=== PATIENT | male | born 1960 | race Two or more races ===

== ENCOUNTER 2021-05-08 13:17 | Inpatient (IN) | payer BC, MEDICAID ==
[2021-05-08 16:23] LABS: CARBON DIOXIDE,CO2 27.7 mmol/L (21.0-32.0); POTASSIUM,K 4.3 mmol/L (3.5-5.1)
[2021-05-08] MEDS ORDERED: Iopamidol 755 MG/ML 500 ML Multipack Bottle IVPUSH STA (17:02)
--- NOTE | 2021-05-08 19:02 | CT ---
Indication: periumbilical pain more to the right side since yesterday, some nausea Technique: Postcontrast CT abdomen and pelvis. 100 cc Isovue 370 intravenous contrast. Please note that all CT scans at this facility use dose modulation, iterative reconstruction, and/or weight-based dosing when appropriate to reduce radiation dose to as low as reasonably achievable. Comparison: None Findings: Mild scarring in both lung bases. No pleural effusion. No intrahepatic mass. The gallbladder is distended. Multiple hyperdense stones located within the gallbladder fundus measuring up to 1 centimeter. There is also a stone near the gallbladder neck measuring 2.5 cm. The gallbladder wall may be slightly thickened. Mild prominence of the intrahepatic biliary tree. Adrenal glands normal. Kidneys unremarkable. No hydronephrosis. Spleen normal. No pancreatic mass. No suspicious adenopathy. Status post appendectomy. Prostate not enlarged. Bladder normal. Left inguinal hernia containing fat measuring 5.5 cm. No bowel obstruction Impression: Multiple calcified gallstones in the gallbladder measuring up to 2.5 cm with the suggestion of mild gallbladder wall thickening and mild intrahepatic biliary duct prominence suggesting cholecystitis. Ultrasound recommended. Large left inguinal hernia contains fat. No inflammation or bowel involvement. Please note that all CT scans at this facility use dose modulation, iterative reconstruction, and/or weight-based dosing when appropriate to reduce radiation dose to as low as reasonably achievable. Dictated by Sacha Gary MD @ 05/08/2021 7:02:23 PM (Electronically Signed)
[2021-05-08] MEDS ORDERED: Morphine 4 MG/ML Syringe IVPUSH ONE (20:08)
[2021-05-08] MEDS ORDERED: Sodium Chloride 0.9% 1,000 ML IV ONE (20:08)
[2021-05-08] MEDS ORDERED: Ondansetron 4 MG/2 ML SDV IVPUSH ONE (20:08)
[2021-05-08] MEDS ORDERED: Sodium Chloride 0.9% 2.5 ML Syringe FLUSH PRN (20:11)
[2021-05-08] MEDS ORDERED: Sodium Chloride 0.9% 10 ML SDV IV PRN (20:11)
[2021-05-08] MEDS ORDERED: Ondansetron 4 MG/2 ML SDV IVPUSH PRN (20:11)
[2021-05-08] MEDS ORDERED: Sodium Chloride 0.9% 10 ML Syringe FLUSH PRN (20:11)
[2021-05-08] MEDS ORDERED: diphenhydrAMINE 50 MG/ML SDV IVPUSH PRN (20:11)
[2021-05-08] MEDS ORDERED: Acetaminophen/HYDROcodone 325-5 MG Tab PO PRN (20:11)
[2021-05-08] MEDS ORDERED: HYDROmorphone 2 MG/ML Syringe IVPUSH PRN (20:11)
--- NOTE | 2021-05-08 20:15 | EDM.PDOC ---
ED HPI GENERAL MEDICAL PROBLEM - General Chief Complaint: Abdominal Pain Stated Complaint: LOWER STOMACH PAIN Time Seen by Provider: 05/08/21 15:18 Source of Information: Reports: Patient History Limitations: Reports: No Limitations - History of Present Illness INITIAL COMMENTS - FREE TEXT/NARRATIVE: HISTORY AND PHYSICAL: History of present illness: Patient is a 60-year-old male who presents emergency room today with concern of right-sided abdominal pain that has been ongoing since yesterday. Patient states that it first started after he ate chicken nuggets and states that he "thought he had food poisoning ". Patient states that since then, he has not been able to eat or drink anything and feels nauseous and like he is going to vomit. Patient states that he was unable to sleep last night and feels as if he is "full of air "but is unable to pass luis eduardo. Patient denies any health history or any abdominal surgeries. Patient states he has not taken anything for his s ymptoms. Patient denies fever, chills, chest pain, shortness of breath, or cough. Denies headache, neck stiff ness, change in vision, syncope, or near syncope. Denies nausea, vomiting, diarrhea, constipation, or dysuria. Has not noted any blood in urine or stool. Review of systems: As per history of present illness and below otherwise all systems reviewed and negative. Past medical history: As per history of present illness and as reviewed below otherwise noncontributory. Surgical history: As per history of present illness and as reviewed below otherwise noncontributory. Social history: See social history for further information Family history: As per history of present illness and as reviewed below otherwise noncontributory. Physical exam: General: Patient is alert, oriented, and in no acute distress. Patient sitting comfortably on exam table. Vitals stable and reviewed by me. HEENT: Atraumatic, normocephalic, pupils equal and reactive bilaterally, negative for conjunctival pallor or scleral icterus, mucous membranes moist, TMs normal bilaterally, throat clear, neck supple, nontender, trachea midline. No drooling or trismus noted. No meningeal signs. No hot potato voice noted. Lungs: Clear to auscultation, breath sounds equal bilaterally, chest nontender. Heart: S1S2, regular rate and rhythm without overt murmur Abdomen: Soft, nondistended, moderate right sided abd tenderness. Negative for masses or hepatosplenomegaly. Negative for costovertebral tenderness. Pelvis: Stable nontender. Genitourinary: Deferred. Rectal: Deferred. Skin: Intact, warm, dry. No lesions or rashes noted. Extremities: Atraumatic, negative for cords or calf pain. Neurovascular unremarkable. Neuro: Awake, alert, oriented. Cranial nerves II through XII unremarkable. Cerebellum unremarkable. Motor and sensory unremarkable throughout. Exam nonfocal. Notes: Patient is a 60-year-old male who resents emergency room today with concern of right-sided abdominal pain that is been ongoing since yesterday with decreased appetite and nausea. Upon arrival to the ED, patient is vitally stable and well-appearing on exam but does have significant right-sided abdominal pain. Will obtain basic lab work and abdominal pelvic CT scan. CBC shows mildly decreased red blood cell count 4.26, otherwise mild derangements of CBC unremarkable. CMP shows mild hyponatremia at 134 and hypochloremia at 94, BUN isolated at 20 with creatinine at 1.4, glucose 139, total bilirubin isolated elevation at 1.3, otherwise mild derangements of CMP unremarkable. Lipase within normal limits. Abdominal pelvic CT scan shows multiple calcified gallstones in the gallbladder measuring up to 2.5 cm with a suggestion of mild gallbladder wall thickening and mild intrahepatic biliary duct prominence suggesting cholecystitis. Large left inguinal hernia contains fat. No inflammatory or bowel movement involvement. Call and speak to the general surgeon on-call, Dr. Light, thoroughly discussed patient's case. She has come in to personally see and evaluate the patient. See her official consult note for further treatment and disposition. Will admit to observation to Dr. Light, general surgery. On reevaluation of patient, he remains vitally stable and has improvement of his symptoms with therapeutics given today in the emergency room. Patient has been transferred to the floor under Dr. Light's care in stable condition. Diagnostics: CBC, CMP, lipase, abdominal pelvic CT scan with contrast Therapeutics: Normal saline, Zofran, morphine Impression: Acute cholecystitis Plan: Admit to observation to Dr. Light, General Surgery Definitive disposition and diagnosis as appropriate pending reevaluation and review of above. Right Lower Abdominal Pain Score (Numeric/FACES): 9 - Related Data Allergies Allergy/AdvReac Type Severity Reaction Status Date / Time No Known Allergies Allergy Verified 01/28/16 13:59 Home Meds: Home Meds Bictegrav/Emtricit/Tenofov Ala [Biktarvy 50-200-25 mg Tablet] 1 tab PO DAILY 05/08/21 [History] Dapsone 100 mg pe PO DAILY 05/08/21 [History] hydroCHLOROthiazide [Hydrochlorothiazide] 1 tab PO DAILY 05/08/21 [History] lisinopriL [Lisinopril] 10 mg PO DAILY 05/08/21 [History] Past Medical History - Past Health History Medical/Surgical History: Denies Medical/Surgical History HEENT History: Reports: None Cardiovascular History: Reports: None Respiratory History: Reports: Asthma Gastrointestinal History: Reports: None Genitourinary History: Reports: None Musculoskeletal History: Reports: None Other Neuro History: Meningitis Psychiatric History: Reports: None Endocrine/Metabolic History: Reports: None Hematologic History: Reports: None Immunologic History: Reports: None Oncologic (Cancer) History: Reports: None Dermatologic History: Reports: None - Infectious Disease History Infectious Disease History: Reports: Meningitis Social & Family History - Family History Family Medical History: No Pertinent Family History - Tobacco Use Tobacco Use Status *Q: Never Tobacco User Second Hand Smoke Exposure: No - Caffeine Use Caffeine Use: Reports: Coffee - Recreational Drug Use Recreational Drug Use: Yes Recreational Drug Type: Reports: Marijuana/Hashish Recreational Drug Use Frequency: Socially ED ROS GENERAL - Review of Systems Review Of Systems: Comprehensive ROS is negative, except as noted in HPI. ED EXAM, GENERAL - Physical Exam Exam: See Below (see dictation) Course - Vital Signs Last Recorded V/S: Last Vital Signs Temp 98.7 F 05/08/21 14:56 Pulse 66 05/08/21 21:12 Resp 16 05/08/21 21:12 BP 131/80 05/08/21 21:12 Pulse Ox 94 L 05/08/21 21:12 - Orders/Labs/Meds Orders: Active Orders 24 hr Category Date Time Status Notify Provider Consults [RC] ASDIRECTED Care 05/08/21 20:09 Active Consult to Physician [CONS] Stat Cons 05/08/21 20:09 Active Medication Orders Hydrocodone Bitart/Acetaminophen (Acetaminophen/Hydrocodone 325-5 Mg Tab) 2 tab PO Q4H PRN PRN Reason: Pain (moderate 4-6) Diphenhydramine HCl (Diphenhydramine 50 Mg/Ml Sdv) 25 mg IVPUSH Q4H PRN PRN Reason: Itching Hydromorphone HCl (Hydromorphone 1 Mg/Ml Syringe) 0.5 mg IVPUSH Q1H PRN PRN Reason: Pain (severe 7-10) Lactated Ringer's (Ringers, Lactated) 1,000 mls @ 125 mls/hr IV ASDIRECTED JAIDA Piperacillin Sod/Tazobactam (Sod 3.375 gm/ Sodium Chloride) 50 mls @ 100 mls/hr IV Q6H [facility] Last Admin: 05/08/21 21:16 Dose: 100 mls/hr Documented by: JORGE LUSI Ondansetron HCl (Ondansetron 4 Mg/2 Ml Sdv) 4 mg IVPUSH Q6H PRN PRN Reason: Nausea/Vomiting Sodium Chloride (Sodium Chloride 0.9% 10 Ml Syringe) 10 ml FLUSH ASDIRECTED PRN PRN Reason: Keep Vein Open Sodium Chloride (Sodium Chloride 0.9% 2.5 Ml Syringe) 2.5 ml FLUSH ASDIRECTED PRN PRN Reason: Keep Vein Open Sodium Chloride (Sodium Chloride 0.9% 10 Ml Sdv) 10 ml IV ASDIRECTED PRN PRN Reason: IV Use Labs: Laboratory Tests 05/08/21 05/08/21 Range/Units 15:49 15:49 WBC 10.97 (4.0-11.0) K/uL RBC 4.26 L (4.50-5.90) M/uL Hgb 13.5 (13.0-17.0) g/dL Hct 38.8 (38.0-50.0) % MCV 91.1 (80.0-98.0) fL MCH 31.7 (27.0-32.0) pg MCHC 34.8 (31.0-37.0) g/dL RDW Std Deviation 44.3 (28.0-62.0) fl RDW Coeff of Moi 13 (11.0-15.0) % Plt Count 246 (150-400) K/uL MPV 10.40 (7.40-12.00) fL Neut % (Auto) 82.3 H (48.0-80.0) % Lymph % (Auto) 12.7 L (16.0-40.0) % [place] % (Auto) 4.9 (0.0-15.0) % Eos % (Auto) 0.0 (0.0-7.0) % Baso % (Auto) 0.1 (0.0-1.5) % Neut # (Auto) 9.0 H (1.4-5.7) K/uL Lymph # (Auto) 1.4 (0.6-2.4) K/uL [place] # (Auto) 0.5 (0.0-0.8) K/uL Eos # (Auto) 0.0 (0.0-0.7) K/uL Baso # (Auto) 0.0 (0.0-0.1) K/uL Nucleated RBC % 0.0 /100WBC Nucleated RBCs # 0 K/uL Sodium 134 L (136-148) mmol/L Potassium 4.3 (3.5-5.1) mmol/L Chloride 97 L (98-107) mmol/L Carbon Dioxide 27.7 (21.0-32.0) mmol/L BUN 20 H (7.0-18.0) mg/dL Creatinine 1.4 H (0.8-1.3) mg/dL Est Cr Clr Drug Dosing 53.61 mL/min Estimated GFR (MDRD) 51.5 ml/min Glucose 139 H (74-106) mg/dL Calcium 9.5 (8.5-10.1) mg/dL Total Bilirubin 1.3 H (0.2-1.0) mg/dL AST 33 (15-37) IU/L ALT 32 (14-63) IU/L Alkaline Phosphatase 96 (46-116) U/L Total Protein 8.6 H (6.4-8.2) g/dL Albumin 4.0 (3.4-5.0) g/dL Globulin 4.6 H (2.6-4.0) g/dL Albumin/Globulin Ratio 0.9 (0.9-1.6) Lipase 151 (73-393) U/L Meds: Medications Generic Name Dose Route Start Last Admin Trade Name Freq PRN Reason Stop Dose Admin Hydrocodone Bitart/Acetaminophen 2 tab 05/08/21 20:11 Acetaminophen/Hydrocodone 325-5 Mg Tab PO Q4H PRN Pain (moderate 4-6) Diphenhydramine HCl 25 mg 05/08/21 20:11 Diphenhydramine 50 Mg/Ml Sdv IVPUSH Q4H PRN Itching Hydromorphone HCl 0.5 mg 05/08/21 20:24 Hydromorphone 1 Mg/Ml Syringe IVPUSH Q1H PRN Pain (severe 7-10) Lactated Ringer's 1,000 mls @ 125 mls/hr 05/08/21 20:15 Ringers, Lactated IV ASDIRECTED JAIDA Piperacillin Sod/Tazobactam 50 mls @ 100 mls/hr 05/08/21 20:00 05/08/21 21:16 Sod 3.375 gm/ Sodium Chloride IV 100 mls/hr Q6H JAIDA Administration Ondansetron HCl 4 mg 05/08/21 20:11 Ondansetron 4 Mg/2 Ml Sdv IVPUSH Q6H PRN Nausea/Vomiting Sodium Chloride 10 ml 05/08/21 20:11 Sodium Chloride 0.9% 10 Ml Syringe FLUSH ASDIRECTED PRN Keep Vein Open Sodium Chloride 2.5 ml 05/08/21 20:11 Sodium Chloride 0.9% 2.5 Ml Syringe FLUSH ASDIRECTED PRN Keep Vein Open Sodium Chloride 10 ml 05/08/21 20:11 Sodium Chloride 0.9% 10 Ml Sdv IV ASDIRECTED PRN IV Use Discontinued Medications Generic Name Dose Route Start Last Admin Trade Name Freq PRN Reason Stop Dose Admin Hydromorphone HCl 0.5 mg 05/08/21 20:11 Hydromorphone 2 Mg/Ml Syringe IVPUSH Q1H PRN Pain (severe 7-10) Sodium Chloride 1,000 mls @ 999 mls/hr 05/08/21 20:08 05/08/21 21:06 Normal Saline IV 05/08/21 21:08 999 mls/hr STAT ONE Administration Iopamidol 85 ml 05/08/21 17:02 05/08/21 17:13 Iopamidol 755 Mg/Ml 500 Ml Multipack Bottle IVPUSH 05/08/21 17:03 85 ml ONETIME STA Administration Morphine Sulfate 4 mg 05/08/21 20:08 05/08/21 21:12 Morphine 4 Mg/Ml Syringe IVPUSH 05/08/21 20:09 4 mg ONETIME ONE Administration Ondansetron HCl 4 mg 05/08/21 20:08 05/08/21 21:09 Ondansetron 4 Mg/2 Ml Sdv IVPUSH 05/08/21 20:09 4 mg ONETIME ONE Administration Departure - Departure Time of Disposition: 21:42 Disposition: Refer to Observation Clinical Impression: Acute cholecystitis - Discharge Information Sepsis Event Note (ED) - Focused Exam Vital Signs: Vital Signs Temp Pulse Resp BP Pulse Ox 05/08/21 14:56 98.7 F 60 18 133/82 97 - My Orders Last 24 Hours: My Active Orders 05/08/21 20:09 Notify Provider Consults [RC] ASDIRECTED Consult to Physician [CONS] Stat - Assessment/Plan Last 24 Hours: My Active Orders 05/08/21 20:09 Notify Provider Consults [RC] ASDIRECTED Consult to Physician [CONS] Stat
--- NOTE | 2021-05-08 20:15 | PCM.HP.2 ---
H&P History of Present Illness - General Date of Service: 05/08/21 Admit Problem/Dx: Admission Diagnosis/Problem Admission Diagnosis/Problem Acute cholecystitis Source of Information: Patient History Limitations: Reports: No Limitations - History of Present Illness Initial Comments - Free Text/Narative: Patient is a 60 year old HIV positive male who presents with RUQ pain. He states that it started yesterday after a meal. He has been having similar, less severe pain after greasy meals for some time. He states that he felt bloated, nauseated and vomited with this. He denies fevers or chills. The pain did not improve with position changes, OTC medications, burping or passing gas. He presented to the ER tonight. His vital signs were stable. He had a WBC of 10K with a neurtrophil predominance. CT scan of the abdomen pelvis showed a distended gallbladder with a possibly thickened wall with a large gallstone in the neck of the gallbladder (2.5 cm). His intrahepatic bile ducts were also mildly prominent. His bilirubin was 1.3 but LFTs were normal. His BUN and Cr were mildly elevated. Right Lower Abdominal Pain Score (Numeric/FACES): 9 - Related Data Allergies/Adverse Reactions: Allergies Allergy/AdvReac Type Severity Reaction Status Date / Time No Known Allergies Allergy Verified 01/28/16 13:59 Home Medications: Home Meds Bictegrav/Emtricit/Tenofov Ala [Biktarvy 50-200-25 mg Tablet] 1 tab PO DAILY 05/08/21 [History] Dapsone 100 mg pe PO DAILY 05/08/21 [History] hydroCHLOROthiazide [Hydrochlorothiazide] 1 tab PO DAILY 05/08/21 [History] lisinopriL [Lisinopril] 10 mg PO DAILY 05/08/21 [History] Past Medical History - Past Health History Medical/Surgical History: Denies Medical/Surgical History HEENT History: Reports: None Cardiovascular History: Reports: None Respiratory History: Reports: Asthma Gastrointestinal History: Reports: None Genitourinary History: Reports: None Musculoskeletal History: Reports: None Other Neuro History: Meningitis Psychiatric History: Reports: None Endocrine/Metabolic History: Reports: None Hematologic History: Reports: None Immunologic History: Reports: HIV Oncologic (Cancer) History: Reports: None Dermatologic History: Reports: None - Infectious Disease History Infectious Disease History: Reports: Meningitis Social & Family History - Family History Family Medical History: No Pertinent Family History - Tobacco Use Tobacco Use Status *Q: Never Tobacco User Second Hand Smoke Exposure: No - Caffeine Use Caffeine Use: Reports: Coffee - Recreational Drug Use Recreational Drug Use: Yes Recreational Drug Type: Reports: Marijuana/Hashish Recreational Drug Use Frequency: Socially H&P Review of Systems - Review of Systems: Review Of Systems: Comprehensive ROS is negative, except as noted in HPI. General: Reports: No Symptoms HEENT: Reports: No Symptoms Pulmonary: Reports: No Symptoms Cardiovascular: Reports: No Symptoms Gastrointestinal: Reports: Abdominal Pain, Decreased Appetite, Distension, Flatus, Nausea, Vomiting Genitourinary: Reports: No Symptoms Musculoskeletal: Reports: No Symptoms Exam - Exam Exam: See Below - Vital Signs Vital Signs: Last Vital Signs Temp 37.1 C 05/08/21 14:56 Pulse 60 05/08/21 14:56 Resp 18 05/08/21 14:56 BP 133/82 05/08/21 14:56 Pulse Ox 97 05/08/21 14:56 Weight: 77.111 kg - Exam General: Alert, Oriented HEENT: Conjunctiva Clear, Mucosa Moist & Sombrillo, Posterior Pharynx Clear Neck: Supple, Trachea Midline Lungs: Clear to Auscultation, Normal Respiratory Effort Cardiovascular: Regular Rate, Regular Rhythm GI/Abdominal Exam: Soft, Non-Tender, No Mass, Distended (mild). No: Guarding, Rigid, Rebound - Patient Data Lab Results Last 24 hrs: Laboratory Results - last 24 hr 05/08/21 05/08/21 Range/Units 15:49 15:49 WBC 10.97 (4.0-11.0) K/uL RBC 4.26 L (4.50-5.90) M/uL Hgb 13.5 (13.0-17.0) g/dL Hct 38.8 (38.0-50.0) % MCV 91.1 (80.0-98.0) fL MCH 31.7 (27.0-32.0) pg MCHC 34.8 (31.0-37.0) g/dL RDW Std Deviation 44.3 (28.0-62.0) fl RDW Coeff of Moi 13 (11.0-15.0) % Plt Count 246 (150-400) K/uL MPV 10.40 (7.40-12.00) fL Neut % (Auto) 82.3 H (48.0-80.0) % Lymph % (Auto) 12.7 L (16.0-40.0) % [place] % (Auto) 4.9 (0.0-15.0) % Eos % (Auto) 0.0 (0.0-7.0) % Baso % (Auto) 0.1 (0.0-1.5) % Neut # (Auto) 9.0 H (1.4-5.7) K/uL Lymph # (Auto) 1.4 (0.6-2.4) K/uL [place] # (Auto) 0.5 (0.0-0.8) K/uL Eos # (Auto) 0.0 (0.0-0.7) K/uL Baso # (Auto) 0.0 (0.0-0.1) K/uL Nucleated RBC % 0.0 /100WBC Nucleated RBCs # 0 K/uL Sodium 134 L (136-148) mmol/L Potassium 4.3 (3.5-5.1) mmol/L Chloride 97 L (98-107) mmol/L Carbon Dioxide 27.7 (21.0-32.0) mmol/L BUN 20 H (7.0-18.0) mg/dL Creatinine 1.4 H (0.8-1.3) mg/dL Est Cr Clr Drug Dosing 53.61 mL/min Estimated GFR (MDRD) 51.5 ml/min Glucose 139 H (74-106) mg/dL Calcium 9.5 (8.5-10.1) mg/dL Total Bilirubin 1.3 H (0.2-1.0) mg/dL AST 33 (15-37) IU/L ALT 32 (14-63) IU/L Alkaline Phosphatase 96 (46-116) U/L Total Protein 8.6 H (6.4-8.2) g/dL Albumin 4.0 (3.4-5.0) g/dL Globulin 4.6 H (2.6-4.0) g/dL Albumin/Globulin Ratio 0.9 (0.9-1.6) Lipase 151 (73-393) U/L Result Diagrams: 05/08/21 15:49 05/08/21 15:49 Sepsis Event Note - Focused Exam Vital Signs: Vital Signs Temp Pulse Resp BP Pulse Ox 05/08/21 14:56 37.1 C 60 18 133/82 97 - Problem List (1) HIV (human immunodeficiency virus infection) SNOMED Code(s): 40392660 ICD Code: B20 - HUMAN IMMUNODEFICIENCY VIRUS [HIV] DISEASE Status: Acute Current Visit: Yes (2) Acute cholecystitis SNOMED Code(s): 24780308 ICD Code: K81.0 - ACUTE CHOLECYSTITIS Status: Acute Current Visit: Yes Problem List Initiated/Reviewed/Updated: Yes Orders Last 24hrs: Active Orders 24 hr Category Date Time Status Patient Status [ADT] Routine ADT 05/08/21 20:11 Ordered Intake and Output [RC] QSHIFT Care 05/08/21 20:12 Ordered Notify Provider Consults [RC] ASDIRECTED Care 05/08/21 20:09 Active Notify Provider Vital Signs [RC] PRN Care 05/08/21 20:12 Ordered Oxygen Therapy [RC] PRN Care 05/08/21 20:11 Ordered RT Incentive Spirometry [RC] Q1HWA Care 05/08/21 20:11 Ordered Up ad Michela [RC] ASDIRECTED Care 05/08/21 20:11 Ordered Vital Signs [RC] PER UNIT ROUTINE Care 05/08/21 20:11 Ordered Consult to Physician [CONS] Stat Cons 05/08/21 20:09 Active Nothing Per Oral Diet [DIET] Diet 05/08/21 Dinner Ordered Abdomen Ltd [US] Stat Exams 05/08/21 19:08 Ordered CBC W/O DIFF,HEMOGRAM [HEME] AM Lab 05/09/21 05:11 Ordered COMPREHENSIVE METABOLIC PN,CMP [CHEM] AM Lab 05/09/21 05:11 Ordered CORONAVIRUS COVID-19 MARGIE [MOLEC] Stat Lab 05/08/21 20:08 Ordered Acetaminophen/HYDROcodone [[place] 325-5 MG] Med 05/08/21 20:11 Ordered 2 tab PO Q4H PRN HYDROmorphone [Dilaudid] Med 05/08/21 20:11 Ordered 0.5 mg IVPUSH Q1H PRN Lactated Ringers @ 125 MLS/HR(1000ml) Med 05/08/21 20:15 Ordered Lactated Ringers [Ringers, Lactated] 1,000 ml IV ASDIRECTED Ondansetron [Zofran] Med 05/08/21 20:11 Ordered 4 mg IVPUSH Q6H PRN Piperacillin/Tazobactam [Piperacil-Tazobact] 3.375 gm Med 05/08/21 20:15 Ordered Sodium Chloride 0.9% [Normal Saline] 50 ml IV Q6H Sodium Chloride 0.9% [Normal Saline] Med 05/08/21 20:11 Ordered 10 ml IV ASDIRECTED PRN Sodium Chloride 0.9% [Normal Saline] 1,000 ml Med 05/08/21 20:08 Active IV STAT Sodium Chloride 0.9% [Saline Flush] Med 05/08/21 20:11 Ordered 10 ml FLUSH ASDIRECTED PRN Sodium Chloride 0.9% [Saline Flush] Med 05/08/21 20:11 Ordered 2.5 ml FLUSH ASDIRECTED PRN diphenhydrAMINE [Benadryl] Med 05/08/21 20:11 Ordered 25 mg IVPUSH Q4H PRN Peripheral IV Insertion Adult [OM.PC] Urgent Oth 05/08/21 20:11 Ordered Resuscitation Status Routine Resus Stat 05/08/21 20:11 Ordered Medication Orders Sodium Chloride (Normal Saline) 1,000 mls @ 999 mls/hr IV STAT ONE Stop: 05/08/21 21:08 Assessment/Plan Comment:: The patient and I discussed the pathophysiology of biliary disease, specifically involving cholelithiasis. The patient is slightly dehydrated so I will admit him overnight for fluid resucitation. He appears much more comfortable. Will have IV Dilaudid and [place] prn for pain. Will start on IV zosyn 3.375mg q 6hr. In the morning will repeat CBC and CMP. Will get an US to better characterize the gallbladder. I will consult medicine in the am for management of HIV. We did discuss possible surgery tomorrow. We discussed laparoscopic possible open cholecystectomy. We discussed the risks of this as well. Will visit about this more in the am.
[2021-05-08] MEDS ORDERED: HYDROmorphone 1 MG/ML Syringe IVPUSH PRN (20:24)
--- NOTE | 2021-05-08 21:15 | US ---
INDICATION: Cholecystitis COMPARISON: CT same day TECHNIQUE: Real time castrejon scale imaging and color Doppler analysis was performed of the right upper quadrant. FINDINGS: The patient`s liver is of normal size and has uniform echogenicity. There is a normal appearance of the hepatic IVC and proximal abdominal aorta. There is no evidence of ascites. The gallbladder is distended and there are multiple echogenic stones. One of the stones appears lodged within the gallbladder neck. The gallbladder wall measures 3.3 mm in thickness. The visualized common bile duct is of normal size and measures 7.5 mm in diameter at the level of the al hepatis. The pancreas is obscured by bowel. There is no evidence of a stone or hydronephrosis within the right kidney. The right kidney measures 11.8 cm in length. IMPRESSION: Distended gallbladder with multiple gallstones measuring up to 2.4 cm. A 1 centimeter stone appears lodged within the gallbladder neck. There is mild intrahepatic and extrahepatic biliary duct dilation with positive sonographic Carrasco sign and mild gallbladder wall thickening. Overall, findings are consistent with acute cholecystitis. Dictated by Sacha Gary MD @ 05/08/2021 9:12:47 PM (Electronically Signed)
[2021-05-08] MEDS: Piperacillin/Tazobactam 3.375 GM in Sodium Chloride 0.9% 50 ML IV SCH (21:16)
[2021-05-08] MEDS: Lactated Ringers 1,000 ML IV SCH (23:22)
[2021-05-09] MEDS: Piperacillin/Tazobactam 3.375 GM in Sodium Chloride 0.9% 50 ML IV SCH ×4 (03:02→20:55)
[2021-05-09] MEDS: Lactated Ringers 1,000 ML IV SCH ×2 (06:30→23:54)
[2021-05-09 06:56] LABS: POTASSIUM,K 4.1 mmol/L (3.5-5.1)
[2021-05-09] MEDS ORDERED: Lactated Ringers 500 ML IV SCH (07:15)
--- NOTE | 2021-05-09 09:14 | MR ---
INDICATION: Cholecystitis. Rule out choledocholithiasis. TECHNIQUE: An MRCP, including 2D, 3D and maximum intensity projection imaging, was performed. COMPARISON: Abdomen ultrasound and abdomen/pelvis CT performed yesterday. FINDINGS: The common bile duct is smoothly marginated and measures up to 5 mm in diameter. No filling defect is evident. The intrahepatic ducts are normal in caliber and appear to branch and taper in a grossly normal fashion. A 2 cm stone is lodged in the gallbladder neck, as demonstrated on yesterday`s ultrasound. Mild gallbladder wall thickening is demonstrated along with pericholecystic edema, consistent with acute cholecystitis. Pancreas divisum is noted. The pancreatic duct is normal in caliber. The liver is normal in size, shape and signal. The spleen, pancreas, adrenal glands and kidneys are within normal limits. No bowel abnormality, lymphadenopathy or free fluid is demonstrated. IMPRESSION: 1. Acute cholecystitis. 2. Negative for choledocholithiasis. 3. Pancreas divisum. Dictated by Nik Garcias MD @ 05/09/2021 9:12:29 AM (Electronically Signed)
--- NOTE | 2021-05-09 11:38 | PCM.CONS ---
H&P History of Present Illness - General Date of Service: 05/09/21 Admit Problem/Dx: Admission Diagnosis/Problem Admission Diagnosis/Problem Acute cholecystitis Source of Information: Patient History Limitations: Reports: No Limitations - History of Present Illness Initial Comments - Free Text/Narative: This 60-year-old male with past medical history of HIV currently on ant iretroviral treatment and hypertension presented to the ER with abdominal pain. He was found to have cholelithiasis with cholecystitis. Dr. Light consulted hospitalist team for medical management due to HIV medications. Patient is alert and oriented doing well this morning. Recently returned from MRI. Patient reports abdominal pain is improved but slightly still there. Denies any chest pain or shortness of breath. Reports that he has been very compliant with his Biktarvy and has been followed by his infectious disease specialist in [place]. He reports he recently had lab work including CD4 and viral load counts he reports that they were good but is on sure of actual levels. He feels his daughter would likely remember these any have documentation of this. He denies any fevers or chills. No recent viral or bacterial infections he is aware of. We will attempt to get most recent lab work reports from [facility] to be placed in the chart. Right Lower Abdominal Pain Score (Numeric/FACES): 10 - Related Data Allergies/Adverse Reactions: Allergies Allergy/AdvReac Type Severity Reaction Status Date / Time No Known Allergies Allergy Verified 05/08/21 22:35 Home Medications: Home Meds Bictegrav/Emtricit/Tenofov Ala [Biktarvy 50-200-25 mg Tablet] 1 tab PO DAILY 05/08/21 [History] Dapsone 100 mg pe PO DAILY 05/08/21 [History] hydroCHLOROthiazide [Hydrochlorothiazide] 1 tab PO DAILY 05/08/21 [History] lisinopriL [Lisinopril] 10 mg PO DAILY 05/08/21 [History] Past Medical History - Past Health History Medical/Surgical History: Denies Medical/Surgical History HEENT History: Reports: None Cardiovascular History: Reports: Hypertension Respiratory History: Reports: Asthma Gastrointestinal History: Reports: None Genitourinary History: Reports: None Musculoskeletal History: Reports: None Other Neuro History: Meningitis Psychiatric History: Reports: None Endocrine/Metabolic History: Reports: None Hematologic History: Reports: None Immunologic History: Reports: HIV Oncologic (Cancer) History: Reports: None Dermatologic History: Reports: None - Infectious Disease History Infectious Disease History: Reports: Chicken Pox, HIV-Human Immunodeficiency Virus, Meningitis, Mumps, Shingles, TB - Past Surgical History GI Surgical History: Reports: Appendectomy Male Surgical History: Reports: None Social & Family History - Family History Family Medical History: No Pertinent Family History - Tobacco Use Tobacco Use Status *Q: Former Tobacco User Used Tobacco, but Quit: No Second Hand Smoke Exposure: No - Caffeine Use Caffeine Use: Reports: Coffee, Soda - Alcohol Use Alcohol Use Frequency: Rarely, Socially - Recreational Drug Use Recreational Drug Use: Yes Recreational Drug Type: Reports: Marijuana/Hashish Recreational Drug Use Frequency: Not Used In Over 1 Month H&P Review of Systems - Review of Systems: Review Of Systems: See Below General: Denies: Fever, Chills, Malaise HEENT: Reports: No Symptoms. Denies: Headaches, Sinus Congestion, Sore Throat, Vertigo Pulmonary: Reports: No Symptoms. Denies: Shortness of Breath Cardiovascular: Reports: No Symptoms. Denies: Chest Pain Gastrointestinal: Reports: Abdominal Pain (Improved since admission), Decreased Appetite. Denies: Nausea, Vomiting Genitourinary: Reports: No Symptoms. Denies: Dysuria, Frequency, Burning Musculoskeletal: Reports: No Symptoms Skin: Reports: No Symptoms Psychiatric: Reports: No Symptoms Neurological: Reports: No Symptoms Hematologic/Lymphatic: Reports: No Symptoms Immunologic: Reports: No Symptoms Exam - Exam Exam: See Below - Vital Signs Vital Signs: Last Vital Signs Temp 98.2 F 05/09/21 08:00 Pulse 63 05/09/21 08:00 Resp 18 05/09/21 08:00 BP 116/72 05/09/21 08:00 Pulse Ox 92 L 05/09/21 08:00 Weight: 77.474 kg - Exam Quality Assessment: No: Supplemental Oxygen General: Alert, Oriented, Cooperative HEENT: Conjunctiva Clear, Mucosa Moist & Vermilion, Posterior Pharynx Clear Lungs: Clear to Auscultation, Normal Respiratory Effort Cardiovascular: Regular Rhythm GI/Abdominal Exam: Normal Bowel Sounds, Soft, No Distention, Tender (Right upper and right lower quadrant). No: Rigid Back Exam: Normal Inspection, Full Range of Motion Extremities: Normal Inspection, Normal Range of Motion, Non-Tender, No Pedal Edema Neuro Extensive - Mental Status: Alert, Oriented x3 Neuro Extensive - Motor, Sensory, Reflexes: CN II-XII Intact Psychiatric: Alert, Normal Affect, Normal Mood - Patient Data Lab Results Last 24 hrs: Laboratory Results - last 24 hr 05/08/21 05/08/21 05/08/21 Range/Units 15:49 15:49 20:38 WBC 10.97 (4.0-11.0) K/uL RBC 4.26 L (4.50-5.90) M/uL Hgb 13.5 (13.0-17.0) g/dL Hct 38.8 (38.0-50.0) % MCV 91.1 (80.0-98.0) fL MCH 31.7 (27.0-32.0) pg MCHC 34.8 (31.0-37.0) g/dL RDW Std Deviation 44.3 (28.0-62.0) fl RDW Coeff of Moi 13 (11.0-15.0) % Plt Count 246 (150-400) K/uL MPV 10.40 (7.40-12.00) fL Neut % (Auto) 82.3 H (48.0-80.0) % Lymph % (Auto) 12.7 L (16.0-40.0) % Trinity % (Auto) 4.9 (0.0-15.0) % Eos % (Auto) 0.0 (0.0-7.0) % Baso % (Auto) 0.1 (0.0-1.5) % Neut # (Auto) 9.0 H (1.4-5.7) K/uL Lymph # (Auto) 1.4 (0.6-2.4) K/uL Trinity # (Auto) 0.5 (0.0-0.8) K/uL Eos # (Auto) 0.0 (0.0-0.7) K/uL Baso # (Auto) 0.0 (0.0-0.1) K/uL Nucleated RBC % 0.0 /100WBC Nucleated RBCs # 0 K/uL Sodium 134 L (136-148) mmol/L Potassium 4.3 (3.5-5.1) mmol/L Chloride 97 L (98-107) mmol/L Carbon Dioxide 27.7 (21.0-32.0) mmol/L BUN 20 H (7.0-18.0) mg/dL Creatinine 1.4 H (0.8-1.3) mg/dL Est Cr Clr Drug Dosing 53.61 mL/min Estimated GFR (MDRD) 51.5 ml/min Glucose 139 H (74-106) mg/dL Calcium 9.5 (8.5-10.1) mg/dL Total Bilirubin 1.3 H (0.2-1.0) mg/dL AST 33 (15-37) IU/L ALT 32 (14-63) IU/L Alkaline Phosphatase 96 (46-116) U/L Total Protein 8.6 H (6.4-8.2) g/dL Albumin 4.0 (3.4-5.0) g/dL Globulin 4.6 H (2.6-4.0) g/dL Albumin/Globulin Ratio 0.9 (0.9-1.6) Lipase 151 (73-393) U/L SARS-CoV-2 RNA (MARGIE) NEGATIVE (NEGATIVE) 05/09/21 05/09/21 Range/Units 05:25 05:25 WBC 6.86 (4.0-11.0) K/uL RBC 3.69 L (4.50-5.90) M/uL Hgb 11.5 L (13.0-17.0) g/dL Hct 34.3 L (38.0-50.0) % MCV 93.0 (80.0-98.0) fL MCH 31.2 (27.0-32.0) pg MCHC 33.5 (31.0-37.0) g/dL RDW Std Deviation 47.5 (28.0-62.0) fl RDW Coeff of Moi 14 (11.0-15.0) % Plt Count 224 (150-400) K/uL MPV 10.40 (7.40-12.00) fL Neut % (Auto) (48.0-80.0) % Lymph % (Auto) (16.0-40.0) % Trinity % (Auto) (0.0-15.0) % Eos % (Auto) (0.0-7.0) % Baso % (Auto) (0.0-1.5) % Neut # (Auto) (1.4-5.7) K/uL Lymph # (Auto) (0.6-2.4) K/uL Trinity # (Auto) (0.0-0.8) K/uL Eos # (Auto) (0.0-0.7) K/uL Baso # (Auto) (0.0-0.1) K/uL Nucleated RBC % 0.0 /100WBC Nucleated RBCs # 0 K/uL Sodium 136 (136-148) mmol/L Potassium 4.1 (3.5-5.1) mmol/L Chloride 102 (98-107) mmol/L Carbon Dioxide 28.0 (21.0-32.0) mmol/L BUN 20 H (7.0-18.0) mg/dL Creatinine 1.5 H (0.8-1.3) mg/dL Est Cr Clr Drug Dosing 51.72 mL/min Estimated GFR (MDRD) 47.6 ml/min Glucose 124 H (74-106) mg/dL Calcium 8.4 L (8.5-10.1) mg/dL Total Bilirubin 1.9 H (0.2-1.0) mg/dL AST 106 H (15-37) IU/L ALT 76 H (14-63) IU/L Alkaline Phosphatase 92 (46-116) U/L Total Protein 7.0 (6.4-8.2) g/dL Albumin 3.1 L (3.4-5.0) g/dL Globulin 3.9 (2.6-4.0) g/dL Albumin/Globulin Ratio 0.8 L (0.9-1.6) Lipase (73-393) U/L SARS-CoV-2 RNA (MARGIE) (NEGATIVE) Result Diagrams: 05/09/21 05:25 05/09/21 05:25 Sepsis Event Note - Evaluation Sepsis Screening Result: No Definite Risk - Focused Exam Vital Signs: Vital Signs Temp Pulse Resp BP Pulse Ox 05/09/21 08:00 98.2 F 63 18 116/72 92 L 05/09/21 03:04 98.6 F 67 14 110/64 92 L Consult PN Assessment/Plan POD#: 0 Procedures: Procedures EMERGENCY DEPT VISIT (01/28/16) (1) Acute cholecystitis SNOMED Code(s): 66587227 Code(s): K81.0 - ACUTE CHOLECYSTITIS Current Visit: Yes (2) HTN (hypertension) SNOMED Code(s): 18810934 Code(s): I10 - ESSENTIAL (PRIMARY) HYPERTENSION Current Visit: Yes Qualifiers: Hypertension type: primary hypertension Qualified Code(s): I10 - Essential (primary) hypertension (3) HIV (human immunodeficiency virus infection) SNOMED Code(s): 85919727 Code(s): B20 - HUMAN IMMUNODEFICIENCY VIRUS [HIV] DISEASE Current Visit: Yes Qualifiers: HIV symptom status: asymptomatic, with no history of HIV-related illness Qualified Code(s): Z21 - Asymptomatic human immunodeficiency virus [HIV] infection status Problem List Initiated/Reviewed/Updated: Yes Plan: This 60-year-old male admitted with acute cholecystitis and cholelithiasis with history of HIV and HTN hospitalist service consulted for medical management. 1. Acute cholecystitis/cholelithiasis -Orders recommendations per Dr. Light 2. HIV -currently on antiretroviral treatment -Asymptomatic -Obtaining recent CD4 and viral load counts from ID physician in [facility] along with other previous lab work including LFTs -Would encourage quickly restarting Biktarvy as soon as possible. Daughter will be bringing medications up -Monitor closely for infections and other opportunistic infections -Counseled on getting up and moving postoperatively along with aggressive I-S treatment to prevent pneumonia, patient verbalized understanding 3. HTN -Continue lisinopril and HCTZ when blood pressure stable and patient eating and drinking. VTE prophylaxis: SCDs preoperatively Case and treatment plan discussed with Dr. Bolanos.
--- NOTE | 2021-05-09 13:39 | PCM.PN ---
- General Info Date of Service: 05/09/21 Functional Status: Reports: Pain Controlled, Ambulating, Urinating, Incentive Spirometry - Review of Systems General: Reports: No Symptoms HEENT: Reports: No Symptoms Pulmonary: Reports: No Symptoms Cardiovascular: Reports: No Symptoms Gastrointestinal: Reports: No Symptoms Genitourinary: Reports: No Symptoms Musculoskeletal: Reports: No Symptoms - Patient Data Vitals - Most Recent: Last Vital Signs Temp 36.8 C 05/09/21 08:00 Pulse 63 05/09/21 08:00 Resp 18 05/09/21 08:00 BP 116/72 05/09/21 08:00 Pulse Ox 92 L 05/09/21 08:00 Weight - Most Recent: 77.474 kg I&O - Last 24 Hours: Intake & Output 05/08/21 05/09/21 05/09/21 22:59 06:59 14:59 Intake Total 1050 Output Total 200 Balance 850 Lab Results Last 24 Hours: Laboratory Results - last 24 hr 05/08/21 05/08/21 05/08/21 Range/Units 15:49 15:49 20:38 WBC 10.97 (4.0-11.0) K/uL RBC 4.26 L (4.50-5.90) M/uL Hgb 13.5 (13.0-17.0) g/dL Hct 38.8 (38.0-50.0) % MCV 91.1 (80.0-98.0) fL MCH 31.7 (27.0-32.0) pg MCHC 34.8 (31.0-37.0) g/dL RDW Std Deviation 44.3 (28.0-62.0) fl RDW Coeff of Moi 13 (11.0-15.0) % Plt Count 246 (150-400) K/uL MPV 10.40 (7.40-12.00) fL Neut % (Auto) 82.3 H (48.0-80.0) % Lymph % (Auto) 12.7 L (16.0-40.0) % Bollinger % (Auto) 4.9 (0.0-15.0) % Eos % (Auto) 0.0 (0.0-7.0) % Baso % (Auto) 0.1 (0.0-1.5) % Neut # (Auto) 9.0 H (1.4-5.7) K/uL Lymph # (Auto) 1.4 (0.6-2.4) K/uL Bollinger # (Auto) 0.5 (0.0-0.8) K/uL Eos # (Auto) 0.0 (0.0-0.7) K/uL Baso # (Auto) 0.0 (0.0-0.1) K/uL Nucleated RBC % 0.0 /100WBC Nucleated RBCs # 0 K/uL Sodium 134 L (136-148) mmol/L Potassium 4.3 (3.5-5.1) mmol/L Chloride 97 L (98-107) mmol/L Carbon Dioxide 27.7 (21.0-32.0) mmol/L BUN 20 H (7.0-18.0) mg/dL Creatinine 1.4 H (0.8-1.3) mg/dL Est Cr Clr Drug Dosing 53.61 mL/min Estimated GFR (MDRD) 51.5 ml/min Glucose 139 H (74-106) mg/dL Calcium 9.5 (8.5-10.1) mg/dL Total Bilirubin 1.3 H (0.2-1.0) mg/dL AST 33 (15-37) IU/L ALT 32 (14-63) IU/L Alkaline Phosphatase 96 (46-116) U/L Total Protein 8.6 H (6.4-8.2) g/dL Albumin 4.0 (3.4-5.0) g/dL Globulin 4.6 H (2.6-4.0) g/dL Albumin/Globulin Ratio 0.9 (0.9-1.6) Lipase 151 (73-393) U/L SARS-CoV-2 RNA (MARGIE) NEGATIVE (NEGATIVE) 05/09/21 05/09/21 Range/Units 05:25 05:25 WBC 6.86 (4.0-11.0) K/uL RBC 3.69 L (4.50-5.90) M/uL Hgb 11.5 L (13.0-17.0) g/dL Hct 34.3 L (38.0-50.0) % MCV 93.0 (80.0-98.0) fL MCH 31.2 (27.0-32.0) pg MCHC 33.5 (31.0-37.0) g/dL RDW Std Deviation 47.5 (28.0-62.0) fl RDW Coeff of Moi 14 (11.0-15.0) % Plt Count 224 (150-400) K/uL MPV 10.40 (7.40-12.00) fL Neut % (Auto) (48.0-80.0) % Lymph % (Auto) (16.0-40.0) % Bollinger % (Auto) (0.0-15.0) % Eos % (Auto) (0.0-7.0) % Baso % (Auto) (0.0-1.5) % Neut # (Auto) (1.4-5.7) K/uL Lymph # (Auto) (0.6-2.4) K/uL Bollinger # (Auto) (0.0-0.8) K/uL Eos # (Auto) (0.0-0.7) K/uL Baso # (Auto) (0.0-0.1) K/uL Nucleated RBC % 0.0 /100WBC Nucleated RBCs # 0 K/uL Sodium 136 (136-148) mmol/L Potassium 4.1 (3.5-5.1) mmol/L Chloride 102 (98-107) mmol/L Carbon Dioxide 28.0 (21.0-32.0) mmol/L BUN 20 H (7.0-18.0) mg/dL Creatinine 1.5 H (0.8-1.3) mg/dL Est Cr Clr Drug Dosing 51.72 mL/min Estimated GFR (MDRD) 47.6 ml/min Glucose 124 H (74-106) mg/dL Calcium 8.4 L (8.5-10.1) mg/dL Total Bilirubin 1.9 H (0.2-1.0) mg/dL AST 106 H (15-37) IU/L ALT 76 H (14-63) IU/L Alkaline Phosphatase 92 (46-116) U/L Total Protein 7.0 (6.4-8.2) g/dL Albumin 3.1 L (3.4-5.0) g/dL Globulin 3.9 (2.6-4.0) g/dL Albumin/Globulin Ratio 0.8 L (0.9-1.6) Lipase (73-393) U/L SARS-CoV-2 RNA (MARGIE) (NEGATIVE) Med Orders - Current: Current Medications Hydrocodone Bitart/Acetaminophen (Acetaminophen/Hydrocodone 325-5 Mg Tab) 2 tab PO Q4H PRN PRN Reason: Pain (moderate 4-6) Dapsone (Dapsone 100 Mg Tab) 100 mg PO DAILY [facility] Diphenhydramine HCl (Diphenhydramine 50 Mg/Ml Sdv) 25 mg IVPUSH Q4H PRN PRN Reason: Itching Fluconazole (Fluconazole 100 Mg Tab) 400 mg PO DAILY@1700 [facility] Hydrochlorothiazide (Hydrochlorothiazide 25 Mg Tab) 25 mg PO DAILY [facility] Hydromorphone HCl (Hydromorphone 1 Mg/Ml Syringe) 0.5 mg IVPUSH Q1H PRN PRN Reason: Pain (severe 7-10) Lactated Ringer's (Ringers, Lactated) 1,000 mls @ 125 mls/hr IV ASDIRECTED [facility] Last Admin: 05/09/21 06:30 Dose: 125 mls/hr Documented by: Piperacillin Sod/Tazobactam (Sod 3.375 gm/ Sodium Chloride) 50 mls @ 100 mls/hr IV Q6H [facility] Last Admin: 05/09/21 08:39 Dose: 100 mls/hr Documented by: Lactated Ringer's (Ringers, Lactated) 500 mls @ 500 mls/hr IV ASDIRECTED [facility] Last Admin: 05/09/21 08:40 Dose: 500 mls/hr Documented by: Lisinopril (Lisinopril 10 Mg Tab) 10 mg PO DAILY [facility] Ondansetron HCl (Ondansetron 4 Mg/2 Ml Sdv) 4 mg IVPUSH Q6H PRN PRN Reason: Nausea/Vomiting Bictegrav/Emtricit/Tenofov Ala [ Biktarvy 50-200-25 Mg Tab 1 each PO DAILY [facility] Sodium Chloride (Sodium Chloride 0.9% 10 Ml Syringe) 10 ml FLUSH ASDIRECTED PRN PRN Reason: Keep Vein Open Sodium Chloride (Sodium Chloride 0.9% 2.5 Ml Syringe) 2.5 ml FLUSH ASDIRECTED PRN PRN Reason: Keep Vein Open Sodium Chloride (Sodium Chloride 0.9% 10 Ml Sdv) 10 ml IV ASDIRECTED PRN PRN Reason: IV Use Discontinued Medications Hydromorphone HCl (Hydromorphone 2 Mg/Ml Syringe) 0.5 mg IVPUSH Q1H PRN PRN Reason: Pain (severe 7-10) Sodium Chloride (Normal Saline) 1,000 mls @ 999 mls/hr IV STAT ONE Stop: 05/08/21 21:08 Last Admin: 05/08/21 21:06 Dose: 999 mls/hr Documented by: Iopamidol (Iopamidol 755 Mg/Ml 500 Ml Multipack Bottle) 85 ml IVPUSH ONETIME STA Stop: 05/08/21 17:03 Last Admin: 05/08/21 17:13 Dose: 85 ml Documented by: Morphine Sulfate (Morphine 4 Mg/Ml Syringe) 4 mg IVPUSH ONETIME ONE Stop: 05/08/21 20:09 Last Admin: 05/08/21 21:12 Dose: 4 mg Documented by: Ondansetron HCl (Ondansetron 4 Mg/2 Ml Sdv) 4 mg IVPUSH ONETIME ONE Stop: 05/08/21 20:09 Last Admin: 05/08/21 21:09 Dose: 4 mg Documented by: - Exam General: Alert, Oriented Neck: Supple Lungs: Clear to Auscultation, Normal Respiratory Effort Cardiovascular: Regular Rate, Regular Rhythm GI/Abdominal Exam: Soft, Non-Tender, Distended. No: Guarding, Rigid, Rebound Extremities: Normal Inspection - Patient Data Lab Results Last 24 hrs: Laboratory Results - last 24 hr 05/08/21 05/08/21 05/08/21 Range/Units 15:49 15:49 20:38 WBC 10.97 (4.0-11.0) K/uL RBC 4.26 L (4.50-5.90) M/uL Hgb 13.5 (13.0-17.0) g/dL Hct 38.8 (38.0-50.0) % MCV 91.1 (80.0-98.0) fL MCH 31.7 (27.0-32.0) pg MCHC 34.8 (31.0-37.0) g/dL RDW Std Deviation 44.3 (28.0-62.0) fl RDW Coeff of Moi 13 (11.0-15.0) % Plt Count 246 (150-400) K/uL MPV 10.40 (7.40-12.00) fL Neut % (Auto) 82.3 H (48.0-80.0) % Lymph % (Auto) 12.7 L (16.0-40.0) % Bollinger % (Auto) 4.9 (0.0-15.0) % Eos % (Auto) 0.0 (0.0-7.0) % Baso % (Auto) 0.1 (0.0-1.5) % Neut # (Auto) 9.0 H (1.4-5.7) K/uL Lymph # (Auto) 1.4 (0.6-2.4) K/uL Bollinger # (Auto) 0.5 (0.0-0.8) K/uL Eos # (Auto) 0.0 (0.0-0.7) K/uL Baso # (Auto) 0.0 (0.0-0.1) K/uL Nucleated RBC % 0.0 /100WBC Nucleated RBCs # 0 K/uL Sodium 134 L (136-148) mmol/L Potassium 4.3 (3.5-5.1) mmol/L Chloride 97 L (98-107) mmol/L Carbon Dioxide 27.7 (21.0-32.0) mmol/L BUN 20 H (7.0-18.0) mg/dL Creatinine 1.4 H (0.8-1.3) mg/dL Est Cr Clr Drug Dosing 53.61 mL/min Estimated GFR (MDRD) 51.5 ml/min Glucose 139 H (74-106) mg/dL Calcium 9.5 (8.5-10.1) mg/dL Total Bilirubin 1.3 H (0.2-1.0) mg/dL AST 33 (15-37) IU/L ALT 32 (14-63) IU/L Alkaline Phosphatase 96 (46-116) U/L Total Protein 8.6 H (6.4-8.2) g/dL Albumin 4.0 (3.4-5.0) g/dL Globulin 4.6 H (2.6-4.0) g/dL Albumin/Globulin Ratio 0.9 (0.9-1.6) Lipase 151 (73-393) U/L SARS-CoV-2 RNA (MARGIE) NEGATIVE (NEGATIVE) 05/09/21 05/09/21 Range/Units 05:25 05:25 WBC 6.86 (4.0-11.0) K/uL RBC 3.69 L (4.50-5.90) M/uL Hgb 11.5 L (13.0-17.0) g/dL Hct 34.3 L (38.0-50.0) % MCV 93.0 (80.0-98.0) fL MCH 31.2 (27.0-32.0) pg MCHC 33.5 (31.0-37.0) g/dL RDW Std Deviation 47.5 (28.0-62.0) fl RDW Coeff of Moi 14 (11.0-15.0) % Plt Count 224 (150-400) K/uL MPV 10.40 (7.40-12.00) fL Neut % (Auto) (48.0-80.0) % Lymph % (Auto) (16.0-40.0) % Bollinger % (Auto) (0.0-15.0) % Eos % (Auto) (0.0-7.0) % Baso % (Auto) (0.0-1.5) % Neut # (Auto) (1.4-5.7) K/uL Lymph # (Auto) (0.6-2.4) K/uL Bollinger # (Auto) (0.0-0.8) K/uL Eos # (Auto) (0.0-0.7) K/uL Baso # (Auto) (0.0-0.1) K/uL Nucleated RBC % 0.0 /100WBC Nucleated RBCs # 0 K/uL Sodium 136 (136-148) mmol/L Potassium 4.1 (3.5-5.1) mmol/L Chloride 102 (98-107) mmol/L Carbon Dioxide 28.0 (21.0-32.0) mmol/L BUN 20 H (7.0-18.0) mg/dL Creatinine 1.5 H (0.8-1.3) mg/dL Est Cr Clr Drug Dosing 51.72 mL/min Estimated GFR (MDRD) 47.6 ml/min Glucose 124 H (74-106) mg/dL Calcium 8.4 L (8.5-10.1) mg/dL Total Bilirubin 1.9 H (0.2-1.0) mg/dL AST 106 H (15-37) IU/L ALT 76 H (14-63) IU/L Alkaline Phosphatase 92 (46-116) U/L Total Protein 7.0 (6.4-8.2) g/dL Albumin 3.1 L (3.4-5.0) g/dL Globulin 3.9 (2.6-4.0) g/dL Albumin/Globulin Ratio 0.8 L (0.9-1.6) Lipase (73-393) U/L SARS-CoV-2 RNA (MARGIE) (NEGATIVE) Result Diagrams: 05/09/21 05:25 05/09/21 05:25 Sepsis Event Note - Evaluation Sepsis Screening Result: No Definite Risk - Focused Exam Vital Signs: Vital Signs Temp Pulse Resp BP Pulse Ox 05/09/21 08:00 36.8 C 63 18 116/72 92 L 05/09/21 03:04 37.0 C 67 14 110/64 92 L - Problem List & Annotations (1) HIV (human immunodeficiency virus infection) SNOMED Code(s): 73494974 Code(s): B20 - HUMAN IMMUNODEFICIENCY VIRUS [HIV] DISEASE Status: Acute Current Visit: Yes Qualifiers: HIV symptom status: asymptomatic, with no history of HIV-related illness Qualified Code(s): Z21 - Asymptomatic human immunodeficiency virus [HIV] infection status (2) Acute cholecystitis SNOMED Code(s): 36600067 Code(s): K81.0 - ACUTE CHOLECYSTITIS Status: Acute Current Visit: Yes - Problem List Review Problem List Initiated/Reviewed/Updated: Yes - My Orders Last 24 Hours: My Active Orders 05/08/21 Dinner Nothing Per Oral Diet [DIET] 05/08/21 20:00 Piperacillin/Tazobactam [Piperacil-Tazobact] 3.375 gm Sodium Chloride 0.9% [Normal Saline] 50 ml IV Q6H 05/08/21 20:11 Patient Status [ADT] Routine Oxygen Therapy [RC] PRN RT Incentive Spirometry [RC] Q1HWA Up ad Michela [RC] ASDIRECTED Vital Signs [RC] PER UNIT ROUTINE Acetaminophen/HYDROcodone [[place] 325-5 MG] 2 tab PO Q4H PRN Ondansetron [Zofran] 4 mg IVPUSH Q6H PRN Sodium Chloride 0.9% [Normal Saline] 10 ml IV ASDIRECTED PRN Sodium Chloride 0.9% [Saline Flush] 10 ml FLUSH ASDIRECTED PRN Sodium Chloride 0.9% [Saline Flush] 2.5 ml FLUSH ASDIRECTED PRN diphenhydrAMINE [Benadryl] 25 mg IVPUSH Q4H PRN Peripheral IV Insertion Adult [OM.PC] Urgent Resuscitation Status Routine 05/08/21 20:12 Intake and Output [RC] Q12H Notify Provider Vital Signs [RC] PRN 05/08/21 20:15 Lactated Ringers [Ringers, Lactated] 1,000 ml IV ASDIRECTED 05/08/21 20:24 HYDROmorphone [Dilaudid] 0.5 mg IVPUSH Q1H PRN 05/09/21 07:15 Lactated Ringers [Ringers, Lactated] 500 ml IV ASDIRECTED 05/09/21 11:25 Consult to Physician [CONS] Routine 05/09/21 11:26 Notify Provider Consults [RC] ASDIRECTED - Plan Plan:: The patient and I discussed the pathophysiology of acute cholecystitis. We discussed the need for a laparoscopic possible open cholecystectomy. I will attempt this laparoscopically but convert to open should I be unable to perform it safely. We discussed the infectious risk since his CD4 count in 143. Will start prophylactic fluconazole post operatively as well as his home medications. Will continue broad spectrum antibiotics and take intraoperative cultures. The patient and I discussed the risks such as bleeding and damage to surrounding structures. He verbalized understanding and wishes to proceed.
--- NOTE | 2021-05-09 13:53 | PCM.PREANE ---
Preanesthetic Assessment - Procedure Proposed Procedure: Lap Beth - Anesthesia/Transfusion/Family Hx Anesthesia History: Prior Anesthesia Without Reaction Family History of Anesthesia Reaction: No Transfusion History: No Prior Transfusion(s) - Review of Systems General: No Symptoms Pulmonary: No Symptoms (Quit smoking 20 yrs ago) Cardiovascular: No Symptoms (HTN) Gastrointestinal: No Symptoms (GERD diet controlled mostly, PRN OTC Prilosec) Neurological: No Symptoms (h/o Meningitis 2018 no residual problems) Other: Reports: None (Occas cannibas use, HIV+) - Physical Assessment NPO Status Date: 05/07/21 NPO Status Time: 23:59 Vital Signs: Last Vital Signs Temp 98.2 F 05/09/21 08:00 Pulse 63 05/09/21 08:00 Resp 18 05/09/21 08:00 BP 116/72 05/09/21 08:00 Pulse Ox 92 L 05/09/21 08:00 Height: 5 ft 9 in Weight: 77.474 kg ASA Class: 3 Mental Status: Alert & Oriented x3 Airway Class: Mallampati = 2 Dentition: Reports: Normal Dentition Thyro-Mental Finger Breadths: 3 Mouth Opening Finger Breadths: 3 ROM/Head Extension: Full Lungs: Clear to Auscultation, Normal Respiratory Effort Cardiovascular: Regular Rate, Regular Rhythm - Lab Values: Laboratory Last Values WBC 6.86 K/uL (4.0-11.0) 05/09/21 05:25 RBC 3.69 M/uL (4.50-5.90) L 05/09/21 05:25 Hgb 11.5 g/dL (13.0-17.0) L 05/09/21 05:25 Hct 34.3 % (38.0-50.0) L 05/09/21 05:25 MCV 93.0 fL (80.0-98.0) 05/09/21 05:25 MCH 31.2 pg (27.0-32.0) 05/09/21 05:25 MCHC 33.5 g/dL (31.0-37.0) 05/09/21 05:25 RDW Std Deviation 47.5 fl (28.0-62.0) 05/09/21 05:25 RDW Coeff of Moi 14 % (11.0-15.0) 05/09/21 05:25 Plt Count 224 K/uL (150-400) 05/09/21 05:25 MPV 10.40 fL (7.40-12.00) 05/09/21 05:25 Neut % (Auto) 82.3 % (48.0-80.0) H 05/08/21 15:49 Lymph % (Auto) 12.7 % (16.0-40.0) L 05/08/21 15:49 [place] % (Auto) 4.9 % (0.0-15.0) 05/08/21 15:49 Eos % (Auto) 0.0 % (0.0-7.0) 05/08/21 15:49 Baso % (Auto) 0.1 % (0.0-1.5) 05/08/21 15:49 Neut # (Auto) 9.0 K/uL (1.4-5.7) H 05/08/21 15:49 Lymph # (Auto) 1.4 K/uL (0.6-2.4) 05/08/21 15:49 [place] # (Auto) 0.5 K/uL (0.0-0.8) 05/08/21 15:49 Eos # (Auto) 0.0 K/uL (0.0-0.7) 05/08/21 15:49 Baso # (Auto) 0.0 K/uL (0.0-0.1) 05/08/21 15:49 Nucleated RBC % 0.0 /100WBC 05/09/21 05:25 Nucleated RBCs # 0 K/uL 05/09/21 05:25 Sodium 136 mmol/L (136-148) 05/09/21 05:25 Potassium 4.1 mmol/L (3.5-5.1) 05/09/21 05:25 Chloride 102 mmol/L (98-107) 05/09/21 05:25 Carbon Dioxide 28.0 mmol/L (21.0-32.0) 05/09/21 05:25 BUN 20 mg/dL (7.0-18.0) H 05/09/21 05:25 Creatinine 1.5 mg/dL (0.8-1.3) H 05/09/21 05:25 Est Cr Clr Drug Dosing 51.72 mL/min 05/09/21 05:25 Estimated GFR (MDRD) 47.6 ml/min 05/09/21 05:25 Glucose 124 mg/dL (74-106) H 05/09/21 05:25 Calcium 8.4 mg/dL (8.5-10.1) L 05/09/21 05:25 Total Bilirubin 1.9 mg/dL (0.2-1.0) H 05/09/21 05:25 AST 106 IU/L (15-37) H 05/09/21 05:25 ALT 76 IU/L (14-63) H 05/09/21 05:25 Alkaline Phosphatase 92 U/L (46-116) 05/09/21 05:25 Total Protein 7.0 g/dL (6.4-8.2) 05/09/21 05:25 Albumin 3.1 g/dL (3.4-5.0) L 05/09/21 05:25 Globulin 3.9 g/dL (2.6-4.0) 05/09/21 05:25 Albumin/Globulin Ratio 0.8 (0.9-1.6) L 05/09/21 05:25 Lipase 151 U/L (73-393) 05/08/21 15:49 SARS-CoV-2 RNA (MARGIE) NEGATIVE (NEGATIVE) 05/08/21 20:38 - Allergies Allergies/Adverse Reactions: Allergies Allergy/AdvReac Type Severity Reaction Status Date / Time No Known Allergies Allergy Verified 05/08/21 22:35 - Acknowledgements Anesthesia Type Planned: General Anesthesia Pt an Appropriate Candidate for the Planned Anesthesia: Yes Alternatives and Risks of Anesthesia Discussed w Pt/Guardian: Yes Pt/Guardian Understands and Agrees with Anesthesia Plan: Yes PreAnesthesia Questionnaire - Past Health History Medical/Surgical History: Denies Medical/Surgical History HEENT History: Reports: None Cardiovascular History: Reports: Hypertension Respiratory History: Reports: Asthma Gastrointestinal History: Reports: None Genitourinary History: Reports: None Musculoskeletal History: Reports: None Other Neuro History: Meningitis Psychiatric History: Reports: None Endocrine/Metabolic History: Reports: None Hematologic History: Reports: None Immunologic History: Reports: HIV Oncologic (Cancer) History: Reports: None Dermatologic History: Reports: None - Infectious Disease History Infectious Disease History: Reports: Chicken Pox, HIV-Human Immunodeficiency Virus, Meningitis, Mumps, Shingles, TB - Past Surgical History GI Surgical History: Reports: Appendectomy Male Surgical History: Reports: None - SUBSTANCE USE Tobacco Use Status *Q: Former Tobacco User Second Hand Smoke Exposure: No Recreational Drug Use History: Yes Recreational Drug Type: Reports: Marijuana/Hashish - HOME MEDS Home Medications: Home Meds Bictegrav/Emtricit/Tenofov Ala [Biktarvy 50-200-25 mg Tablet] 1 tab PO DAILY 05/08/21 [History] Dapsone 100 mg pe PO DAILY 05/08/21 [History] hydroCHLOROthiazide [Hydrochlorothiazide] 1 tab PO DAILY 05/08/21 [History] lisinopriL [Lisinopril] 10 mg PO DAILY 05/08/21 [History] - CURRENT (IN HOUSE) MEDS Current Meds: Current Medications Hydrocodone Bitart/Acetaminophen (Acetaminophen/Hydrocodone 325-5 Mg Tab) 2 tab PO Q4H PRN PRN Reason: Pain (moderate 4-6) Dapsone (Dapsone 100 Mg Tab) 100 mg PO DAILY JAIDA Diphenhydramine HCl (Diphenhydramine 50 Mg/Ml Sdv) 25 mg IVPUSH Q4H PRN PRN Reason: Itching Fluconazole (Fluconazole 100 Mg Tab) 400 mg PO DAILY@1700 [facility] Hydrochlorothiazide (Hydrochlorothiazide 25 Mg Tab) 25 mg PO DAILY JAIDA Hydromorphone HCl (Hydromorphone 1 Mg/Ml Syringe) 0.5 mg IVPUSH Q1H PRN PRN Reason: Pain (severe 7-10) Lactated Ringer's (Ringers, Lactated) 1,000 mls @ 125 mls/hr IV ASDIRECTED [facility] Last Admin: 05/09/21 06:30 Dose: 125 mls/hr Documented by: Piperacillin Sod/Tazobactam (Sod 3.375 gm/ Sodium Chloride) 50 mls @ 100 mls/hr IV Q6H [facility] Last Admin: 05/09/21 08:39 Dose: 100 mls/hr Documented by: Lactated Ringer's (Ringers, Lactated) 500 mls @ 500 mls/hr IV ASDIRECTED [facility] Last Admin: 05/09/21 08:40 Dose: 500 mls/hr Documented by: Lisinopril (Lisinopril 10 Mg Tab) 10 mg PO DAILY JAIDA Ondansetron HCl (Ondansetron 4 Mg/2 Ml Sdv) 4 mg IVPUSH Q6H PRN PRN Reason: Nausea/Vomiting Bictegrav/Emtricit/Tenofov Ala [ Biktarvy 50-200-25 Mg Tab 1 each PO DAILY JAIDA Sodium Chloride (Sodium Chloride 0.9% 10 Ml Syringe) 10 ml FLUSH ASDIRECTED PRN PRN Reason: Keep Vein Open Sodium Chloride (Sodium Chloride 0.9% 2.5 Ml Syringe) 2.5 ml FLUSH ASDIRECTED PRN PRN Reason: Keep Vein Open Sodium Chloride (Sodium Chloride 0.9% 10 Ml Sdv) 10 ml IV ASDIRECTED PRN PRN Reason: IV Use Discontinued Medications Hydromorphone HCl (Hydromorphone 2 Mg/Ml Syringe) 0.5 mg IVPUSH Q1H PRN PRN Reason: Pain (severe 7-10) Sodium Chloride (Normal Saline) 1,000 mls @ 999 mls/hr IV STAT ONE Stop: 05/08/21 21:08 Last Admin: 05/08/21 21:06 Dose: 999 mls/hr Documented by: Iopamidol (Iopamidol 755 Mg/Ml 500 Ml Multipack Bottle) 85 ml IVPUSH ONETIME STA Stop: 05/08/21 17:03 Last Admin: 05/08/21 17:13 Dose: 85 ml Documented by: Morphine Sulfate (Morphine 4 Mg/Ml Syringe) 4 mg IVPUSH ONETIME ONE Stop: 05/08/21 20:09 Last Admin: 05/08/21 21:12 Dose: 4 mg Documented by: Ondansetron HCl (Ondansetron 4 Mg/2 Ml Sdv) 4 mg IVPUSH ONETIME ONE Stop: 05/08/21 20:09 Last Admin: 05/08/21 21:09 Dose: 4 mg Documented by:
[2021-05-09] MEDS ORDERED: Propofol 200 MG/20 ML SDV ONE (14:01)
[2021-05-09] MEDS ORDERED: fentaNYL 250 MCG/5 ML SDV ONE ×2 (14:02→15:05)
[2021-05-09] MEDS ORDERED: Octyl 2-Cyanoacrylate 1 Tube ONE (14:12)
[2021-05-09] MEDS ORDERED: Bupivacaine 0.5% 30 ML SDV ONE ×3 (14:12→15:32)
[2021-05-09] MEDS ORDERED: ceFAZolin 1 GM Vial ONE ×2 (14:13→15:39)
[2021-05-09] MEDS ORDERED: Desflurane 240 ML Bottle ONE (14:20)
[2021-05-09] MEDS ORDERED: Rocuronium Bromide 50 MG/5 ML Syringe ONE ×2 (15:39→15:47)
[2021-05-09] MEDS ORDERED: fentaNYL 100 MCG/2 ML SDV ONE ×2 (15:40→16:33)
[2021-05-09] MEDS ORDERED: Dexamethasone 4 MG/ML 5 ML MDV ONE (16:47)
[2021-05-09] MEDS ORDERED: Ondansetron 4 MG/2 ML SDV ONE (16:47)
[2021-05-09] MEDS ORDERED: Ketorolac 30 MG/ML SDV ONE (16:49)
--- NOTE | 2021-05-09 17:38 | PCM.OPNOTE ---
- General Post-Op/Procedure Note Date of Surgery/Procedure: 05/09/21 Operative Procedure(s): Laparoscopic converted to open cholecystectomy Findings: Severely inflamed gallbladder incased in inflamed and thickened omentum. Pre Op Diagnosis: Acute cholecystitis Post-Op Diagnosis: same Anesthesia Technique: General ET Tube Primary Surgeon: Reyna Light Secondary Surgeon: Marcos Fournier Pathology: gallbladder Fluid Replacement, Intraop: 3,000 Output, Urine Amount: 250 EBL in mLs: 500 Surgical Drain/Tube Type: Trevon Drain Condition: Stable Free Text/Narrative:: Intake & Output 05/09/21 05/09/21 05/09/21 06:59 14:59 22:59 Intake Total 1050 1750 Output Total 200 860 Balance 850 890
[2021-05-09] MEDS ORDERED: HYDROmorphone 1 MG/ML Syringe IVPUSH PRN (17:54)
--- NOTE | 2021-05-09 17:58 | PCM.POSTAN ---
POST ANESTHESIA ASSESSMENT - MENTAL STATUS Mental Status: Alert - VITAL SIGNS Vital Signs: Last Vital Signs Temp 36.7 C 05/09/21 17:27 Pulse 77 05/09/21 17:52 Resp 14 05/09/21 17:52 BP 151/97 H 05/09/21 17:52 Pulse Ox 96 05/09/21 17:52 - RESPIRATORY Respiratory Status: Respiratory Rate WNL, Airway Patent, O2 Saturation Stable - CARDIOVASCULAR CV Status: Pulse Rate WNL, Elevated Blood Pressure - GASTROINTESTINAL GI Status: No Symptoms - PAIN Pain Score: 4 - POST OP HYDRATION Hydration Status: Adequate & Stable
--- NOTE | 2021-05-09 18:23 | PCM48HPAN ---
Post Anesthesia Note - EVALUATION WITHIN 48HRS OF ANESTHETIC Vital Signs in Normal Range: Yes Patient Participated in Evaluation: Yes Respiratory Function Stable: Yes Airway Patent: Yes Cardiovascular Function Stable: Yes Hydration Status Stable: Yes Pain Control Satisfactory: Yes Nausea and Vomiting Control Satisfactory: Yes Mental Status Recovered: Yes Vital Signs: Last Vital Signs Temp 36.7 C 05/09/21 17:27 Pulse 77 05/09/21 17:52 Resp 14 05/09/21 17:52 BP 151/97 H 05/09/21 17:52 Pulse Ox 96 05/09/21 17:52 - COMMENTS/OBSERVATIONS Free Text/Narrative:: continuous pulse oximetry ordered until AM
[2021-05-09] MEDS: [UNRECOGNIZED DRUG - OTHER] PO SCH (18:54)
[2021-05-09] MEDS: Ketorolac 15 MG/ML SDV IVPUSH SCH ×2 (19:04→23:55)
[2021-05-09] MEDS: Scopolamine 1.5 MG Transdermal Patch TRDERM SCH (19:13)
[2021-05-09] MEDS: Fluconazole 100 MG Tab PO SCH (19:13)
[2021-05-09] MEDS: Cyclobenzaprine 5 MG Tab PO SCH (22:58)
[2021-05-09] MEDS ORDERED: Acetaminophen 1,000 MG in Premix Bag 1 BAG IV PRN (23:00)
[2021-05-10] MEDS: Piperacillin/Tazobactam 3.375 GM in Sodium Chloride 0.9% 50 ML IV SCH ×4 (02:20→20:53)
[2021-05-10] MEDS: Cyclobenzaprine 5 MG Tab PO SCH ×3 (05:53→21:20)
[2021-05-10] MEDS: Ketorolac 15 MG/ML SDV IVPUSH SCH ×4 (05:53→23:53)
[2021-05-10 07:56] LABS: POTASSIUM,K 4.1 mmol/L (3.5-5.1)
[2021-05-10] MEDS: Lisinopril 10 MG Tab PO SCH (08:33)
[2021-05-10] MEDS: Hydrochlorothiazide 25 MG Tab PO SCH (08:33)
[2021-05-10] MEDS: Lactated Ringers 1,000 ML IV SCH (08:41)
[2021-05-10] MEDS: DAPSONE 100 MG PO SCH (08:42)
[2021-05-10] MEDS ORDERED: DAPSONE 100 MG PO SCH (09:00)
[2021-05-10] MEDS ORDERED: Acetaminophen/oxyCODONE 325-5 MG Tab PO PRN (10:00)
--- NOTE | 2021-05-10 10:02 | OR ---
SURGEON: REYNA LIGHT MD DATE OF PROCEDURE: 05/09/2021 PREOPERATIVE DIAGNOSIS: Acute cholecystitis. POSTOPERATIVE DIAGNOSIS: Acute cholecystitis. PROCEDURE PERFORMED: Laparoscopic converted to open cholecystectomy. PRIMARY SURGEON: Reyna Light MD SECONDARY SURGEON: Marcos Fournier M.D. ANESTHESIA: General endotracheal anesthesia. FLUIDS: 3000 mL crystalloid. ESTIMATED BLOOD LOSS: 500 mL. URINE OUTPUT: 250 mL. FINDINGS: Severely inflamed and enlarged gallbladder containing large stones. The omentum severely inflamed and encased around the gallbladder. COMPLICATIONS: None. INDICATIONS: The patient is a 60-year-old male who presented to the emergency room last evening with a one-day history of severe right upper quadrant pain. CT scan showed a distended gallbladder containing gallstones with suggestion of a stone in the neck of the gallbladder. An ultrasound confirmed these findings and suggested there was some edema and wall thickening of the gallbladder. He was admitted to the hospital for IV fluids, IV antibiotics, and close monitoring. The patient has a history of HIV. The Medicine team was consulted. The patient's last CD4 count was 143. His repeat labs this morning showed a slightly increased bilirubin and LFTs. MRCP was performed that showed acute cholecystitis with no evidence of choledocholithiasis. The decision was made to proceed to the operating room for laparoscopic, possible open cholecystectomy. We discussed both procedures. Should I be unable to perform it safely laparoscopically, I would convert to open. I explained the risks of the procedure including bleeding, infection, or damage to surrounding structures. He verbalized understanding and wishes to proceed. PROCEDURE IN DETAIL: The patient was brought in to the OR and placed on the OR table in supine position. A time-out was completed verifying the patient's name, age, date of , allergies, and procedure to be performed. General endotracheal anesthesia was induced. The abdomen was prepped and draped in usual standard fashion. I anesthetized the patient's supraumbilical fold with 0.5% Marcaine plain. An incision had been previously made in this area, so I took a 15-blade and made an incision over this previous scar. I then dissected down to the level of the fascia. The fascia was elevated with hemostats and incised sharply with curved Correa scissors. Entry into the abdomen was palpated digitally. A 12 mm Fabien trocar was inserted. The abdomen was insufflated and the patient placed into reverse Trendelenburg position and airplaned slightly to the left. 5 mm trocars were placed in the following locations under direct visualization; one in the epigastric area, one in the right flank, and one 2 fingerbreadths below the right subcostal margin in the midclavicular line. The gallbladder was surrounded in thickened and inflamed omentum. The very top of the gallbladder was exposed. This was distended and tense. In order to grasp the gallbladder safely, I passed an aspirating needle through the right flank port site and pierced through the dome of the gallbladder. 100 mL of dark green-appearing bilious fluid was aspirated. This was sent to Lab for cultures. The needle was then passed off the field. The dome of the gallbladder was then able to be grasped and elevated cranially. Using suction and a Kittner, I attempted to take down the omentum from distal to proximal. Unfortunately, the tissue was very edematous and densely adhered to the body of the gallbladder wall. I attempted to take it down, but it just tore and started bleeding. Clips were placed on a small bleeding vessel on the omentum. The decision was made to convert to open to proceed with safer dissection. The ports were then removed and the abdomen desufflated. The fascia at the supraumbilical port site was closed with interrupted 3-0 Vicryl sutures. I anesthetized the right upper quadrant with 0.5% Marcaine plain. A 10-blade was used to make an incision obliquely along the right upper quadrant connecting the port sites. Electrocautery was used to dissect down through the layers of the subcutaneous wall. My partner, Dr. Marcos Fournier, was asked to come and assist with the case. Once into the abdomen, retractors and moistened laps were placed to expose the gallbladder. The gallbladder and surrounding omentum were inflamed and edematous. We took down the omental adhesions to the gallbladder wall using a combination of finger dissection and the Harmonic scalpel device. Once we had taken down the distal half of the omental adhesions, we turned our attention to the top of the gallbladder. We proceeded in a dome-down fashion to separate the gallbladder from the liver bed. Sharp dissection was used to create a plane between the gallbladder and the gallbladder fossa. There was a rind along the medial and lateral edges. This rind did bleed even though electrocautery was used to take it down. Malgorzata were placed along these areas to control the venous bleeding. Eventually, we were able to palpate the proximal stone that was impacted within the fundus. This was reduced back into the body of the gallbladder. Using blunt dissection, we were able to take down the surrounding inflamed tissue around the infundibulum down to the cystic duct. The cystic artery was taken down using the Harmonic scalpel. Once the cystic duct was cleared away, it was doubly ligated using 2-0 Vicryl sutures and sharply cut above the sutures. I inspected the gallbladder and cut end on the back table. There was a single opening on the cut end of the gallbladder. We irrigated the right upper quadrant with an Ancef-normal saline solution. The liver bed was bleeding from multiple points. There was no pulsatile bleeding. There was an area along the distal medial edge that was briskly bleeding. This was ligated with a [id number] 2-0 chromic stitch and controlled. There was a cut edge of the lateral rind that was oozing. This was clamped and stick-tied with 2-0 chromic suture as well. The remainder of the small bleeding points along the gallbladder fossa were controlled using electrocautery. Avitene, Gricel, and Surgicel were then placed in the gallbladder fossa and pressure held for 5 minutes. We then reinspected our operative field and found no further evidence of bleeding. A 19-Mongolian Trevon drain was brought through the right flank, and placed in the gallbladder fossa. It was secured to the skin using a 2-0 silk suture. We then closed the peritoneum and posterior fascia with a running 0 Vicryl suture. The anterior fascia and lateral abdominal wall were closed with interrupted 0 Ethibond sutures. An On-Q pump was placed along the anterior fascial incision. The subcutaneous fat layer was closed with running 3-0 Vicryl sutures. The skin was closed with malgorzata. The skin at the umbilical site was closed with malgorzata as well. Sterile dressings were applied. The patient was extubated and taken to the PACU in stable condition. All counts were complete and correct at the end of the case. GWEN / RONALDO /[id number] LINDA
--- NOTE | 2021-05-10 10:36 | PCM.SURGPN ---
- General Info Date of Service: 05/10/21 Date of Surgery/Procedure: 05/09/21 POD#: 1 Functional Status: Reports: Pain Controlled, Incentive Spirometry. Denies: New Symptoms - Review of Systems General: Reports: No Symptoms HEENT: Reports: No Symptoms Pulmonary: Reports: No Symptoms Cardiovascular: Reports: No Symptoms Gastrointestinal: Reports: No Symptoms, Flatus, Other (NG with 550ml out since surgery (~16 hrs) ). Denies: Nausea, Vomiting Genitourinary: Reports: No Symptoms Musculoskeletal: Reports: No Symptoms Skin: Reports: No Symptoms - Patient Data Vitals - Most Recent: Last Vital Signs Temp 36.6 C 05/10/21 08:00 Pulse 67 05/10/21 08:00 Resp 16 05/10/21 08:00 BP 99/59 L 05/10/21 08:33 Pulse Ox 93 L 05/10/21 08:00 Weight - Most Recent: 77.474 kg I&O - Last 24 Hours: Intake & Output 05/09/21 05/10/21 05/10/21 22:59 06:59 14:59 Intake Total 7850 1209 Output Total 1270 1020 Balance 6580 189 Lab Results Last 24 Hrs: Laboratory Results - last 24 hr 05/09/21 05/10/21 05/10/21 Range/Units 17:42 07:15 07:15 WBC 6.22 (4.0-11.0) K/uL RBC 3.19 L (4.50-5.90) M/uL Hgb 11.6 L 10.2 L (13.0-17.0) g/dL Hct 34.1 L 29.6 L (38.0-50.0) % MCV 92.8 (80.0-98.0) fL MCH 32.0 (27.0-32.0) pg MCHC 34.5 (31.0-37.0) g/dL RDW Std Deviation 46.7 (28.0-62.0) fl RDW Coeff of Moi 14 (11.0-15.0) % Plt Count 191 (150-400) K/uL MPV 10.20 (7.40-12.00) fL Nucleated RBC % 0.0 /100WBC Nucleated RBCs # 0 K/uL Sodium 137 (136-148) mmol/L Potassium 4.1 (3.5-5.1) mmol/L Chloride 103 (98-107) mmol/L Carbon Dioxide 27.0 (21.0-32.0) mmol/L BUN 24 H (7.0-18.0) mg/dL Creatinine 1.4 H (0.8-1.3) mg/dL Est Cr Clr Drug Dosing 55.41 mL/min Estimated GFR (MDRD) 51.5 ml/min Glucose 133 H (74-106) mg/dL Calcium 7.5 L (8.5-10.1) mg/dL Total Bilirubin 1.1 H (0.2-1.0) mg/dL AST 76 H (15-37) IU/L ALT 92 H (14-63) IU/L Alkaline Phosphatase 83 (46-116) U/L Total Protein 6.0 L (6.4-8.2) g/dL Albumin 2.4 L (3.4-5.0) g/dL Globulin 3.6 (2.6-4.0) g/dL Albumin/Globulin Ratio 0.7 L (0.9-1.6) Med Orders - Current: Current Medications Cyclobenzaprine HCl (Cyclobenzaprine 5 Mg Tab) 5 mg PO TID [facility] Last Admin: 05/10/21 05:53 Dose: 5 mg Documented by: Diphenhydramine HCl (Diphenhydramine 50 Mg/Ml Sdv) 25 mg IVPUSH Q4H PRN PRN Reason: Itching Fluconazole (Fluconazole 100 Mg Tab) 400 mg PO DAILY@1700 [facility] Last Admin: 05/09/21 19:13 Dose: 400 mg Documented by: Hydrochlorothiazide (Hydrochlorothiazide 25 Mg Tab) 25 mg PO DAILY [facility] Last Admin: 05/10/21 08:33 Dose: 25 mg Documented by: Hydromorphone HCl (Hydromorphone 1 Mg/Ml Syringe) 0.5 mg IVPUSH Q1H PRN PRN Reason: Pain (severe 7-10) Lactated Ringer's (Ringers, Lactated) 1,000 mls @ 125 mls/hr IV ASDIRECTED [facility] Last Admin: 05/10/21 08:41 Dose: 125 mls/hr Documented by: Piperacillin Sod/Tazobactam (Sod 3.375 gm/ Sodium Chloride) 50 mls @ 100 mls/hr IV Q6H [facility] Last Admin: 05/10/21 08:34 Dose: 100 mls/hr Documented by: Lactated Ringer's (Ringers, Lactated) 500 mls @ 500 mls/hr IV ASDIRECTED [facility] Last Admin: 05/09/21 08:40 Dose: 500 mls/hr Documented by: Acetaminophen 1,000 mg/ Premix 100 mls @ 400 mls/hr IV ONETIME PRN PRN Reason: PAIN Ketorolac Tromethamine (Ketorolac 15 Mg/Ml Sdv) 15 mg IVPUSH Q6H [facility] Stop: 05/14/21 23:00 Last Admin: 05/10/21 05:53 Dose: 15 mg Documented by: Lisinopril (Lisinopril 10 Mg Tab) 10 mg PO DAILY [facility] Last Admin: 05/10/21 08:33 Dose: Not Given Documented by: Ondansetron HCl (Ondansetron 4 Mg/2 Ml Sdv) 4 mg IVPUSH Q6H PRN PRN Reason: Nausea/Vomiting Oxycodone/Acetaminophen (Acetaminophen/Oxycodone 325-5 Mg Tab) 2 tab PO Q4H PRN PRN Reason: Pain (severe 7-10) Bictegrav/Emtricit/Tenofov Ala [ Biktarvy 50-200-25 Mg Tab 1 each PO Q24H [facility] Last Admin: 05/09/21 18:54 Dose: 1 each Documented by: Dapsone 100 Mg Tab 1 each PO DAILY [facility] Last Admin: 05/10/21 08:42 Dose: 1 each Documented by: Scopolamine (Scopolamine 1.5 Mg Transdermal Patch) 1.5 mg TRDERM Q72H [facility] Last Admin: 05/09/21 19:13 Dose: 1.5 mg Documented by: Sodium Chloride (Sodium Chloride 0.9% 10 Ml Syringe) 10 ml FLUSH ASDIRECTED PRN PRN Reason: Keep Vein Open Sodium Chloride (Sodium Chloride 0.9% 2.5 Ml Syringe) 2.5 ml FLUSH ASDIRECTED PRN PRN Reason: Keep Vein Open Sodium Chloride (Sodium Chloride 0.9% 10 Ml Sdv) 10 ml IV ASDIRECTED PRN PRN Reason: IV Use Discontinued Medications Hydrocodone Bitart/Acetaminophen (Acetaminophen/Hydrocodone 325-5 Mg Tab) 2 tab PO Q4H PRN PRN Reason: Pain (moderate 4-6) Bupivacaine HCl (Bupivacaine 0.5% 30 Ml Sdv) Confirm Administered Dose 30 ml .ROUTE .STK-MED ONE Stop: 05/09/21 14:13 Bupivacaine HCl (Bupivacaine 0.5% 30 Ml Sdv) Confirm Administered Dose 30 ml .ROUTE .STK-MED ONE Stop: 05/09/21 15:32 Bupivacaine HCl (Bupivacaine 0.5% 30 Ml Sdv) Confirm Administered Dose 90 ml .ROUTE .STK-MED ONE Stop: 05/09/21 15:33 Cefazolin Sodium (Cefazolin 1 Gm Vial) Confirm Administered Dose 1 gm .ROUTE .STK-MED ONE Stop: 05/09/21 14:14 Cefazolin Sodium (Cefazolin 1 Gm Vial) Confirm Administered Dose 2 gm .ROUTE .STK-MED ONE Stop: 05/09/21 15:40 Dapsone (Dapsone 100 Mg Tab) 100 mg PO DAILY [facility] Desflurane (Desflurane 240 Ml Bottle) Confirm Administered Dose 240 ml .ROUTE .STK-MED ONE Stop: 05/09/21 14:21 Dexamethasone (Dexamethasone 4 Mg/Ml 5 Ml Mdv) Confirm Administered Dose 20 mg .ROUTE .STK-MED ONE Stop: 05/09/21 16:48 Fentanyl (Fentanyl 250 Mcg/5 Ml Sdv) Confirm Administered Dose 250 mcg .ROUTE .STK-MED ONE Stop: 05/09/21 14:03 Fentanyl (Fentanyl 250 Mcg/5 Ml Sdv) Confirm Administered Dose 250 mcg .ROUTE .STK-MED ONE Stop: 05/09/21 15:06 Fentanyl (Fentanyl 100 Mcg/2 Ml Sdv) Confirm Administered Dose 100 mcg .ROUTE .STK-MED ONE Stop: 05/09/21 15:41 Fentanyl (Fentanyl 100 Mcg/2 Ml Sdv) Confirm Administered Dose 100 mcg .ROUTE .STK-MED ONE Stop: 05/09/21 16:34 Hydromorphone HCl (Hydromorphone 2 Mg/Ml Syringe) 0.5 mg IVPUSH Q1H PRN PRN Reason: Pain (severe 7-10) Hydromorphone HCl (Hydromorphone 1 Mg/Ml Syringe) 0.5 mg IVPUSH ONETIME PRN PRN Reason: Abdominal Pain Last Admin: 05/09/21 18:04 Dose: 0.5 mg Documented by: Sodium Chloride (Normal Saline) 1,000 mls @ 999 mls/hr IV STAT ONE Stop: 05/08/21 21:08 Last Admin: 05/08/21 21:06 Dose: 999 mls/hr Documented by: Acetaminophen (Ofirmev 1000 Mg/100 Ml) Confirm Administered Dose 100 mls @ as directed .ROUTE .STK-MED ONE Stop: 05/09/21 16:51 Iopamidol (Iopamidol 755 Mg/Ml 500 Ml Multipack Bottle) 85 ml IVPUSH ONETIME STA Stop: 05/08/21 17:03 Last Admin: 05/08/21 17:13 Dose: 85 ml Documented by: Ketorolac Tromethamine (Ketorolac 30 Mg/Ml Sdv) Confirm Administered Dose 30 mg .ROUTE .STK-MED ONE Stop: 05/09/21 16:50 Miscellaneous Medication (Phenylephrine Hcl In 0.9% Nacl 1 Mg/10 Ml Syringe) C onfirm Administered Dose 1 mg .ROUTE .STK-MED ONE Stop: 05/09/21 16:00 Morphine Sulfate (Morphine 4 Mg/Ml Syringe) 4 mg IVPUSH ONETIME ONE Stop: 05/08/21 20:09 Last Admin: 05/08/21 21:12 Dose: 4 mg Documented by: Octyl Cyanoacrylate (Octyl 2-Cyanoacrylate 1 Tube) Confirm Administered Dose 1 applic .ROUTE .STK-MED ONE Stop: 05/09/21 14:13 Ondansetron HCl (Ondansetron 4 Mg/2 Ml Sdv) 4 mg IVPUSH ONETIME ONE Stop: 05/08/21 20:09 Last Admin: 05/08/21 21:09 Dose: 4 mg Documented by: Ondansetron HCl (Ondansetron 4 Mg/2 Ml Sdv) Confirm Administered Dose 4 mg .ROUTE .STK-MED ONE Stop: 05/09/21 16:48 Propofol (Propofol 200 Mg/20 Ml Sdv) Confirm Administered Dose 200 mg .ROUTE .STK-MED ONE Stop: 05/09/21 14:02 Rocuronium [place] (Rocuronium [place] 50 Mg/5 Ml Syringe) Confirm Administered Dose 50 mg .ROUTE .STK-MED ONE Stop: 05/09/21 15:40 Rocuronium [place] (Rocuronium [place] 50 Mg/5 Ml Syringe) Confirm Administered Dose 50 mg .ROUTE .K-MED ONE Stop: 05/09/21 15:48 - Exam Wound/Incisions: Dressing Dry and Intact, Other (Drain output bile mixed with serosanguinous fluid ) General: Alert, Oriented HEENT: Other (conjunctival edema) Lungs: Clear to Auscultation Cardiovascular: Regular Rhythm GI/Abdominal Exam: Soft, No Distention, Tender (over incision ). No: Guarding, Rigid, Rebound Extremities: Normal Inspection Skin: Warm, Dry, Intact Neurological: No New Focal Deficit Psy/Mental Status: Alert, Normal Affect, Normal Mood Sepsis Event Note - Evaluation Sepsis Screening Result: No Definite Risk - Focused Exam Vital Signs: Vital Signs Temp Pulse Resp BP BP Pulse Ox 05/10/21 08:33 99/59 L 05/10/21 08:00 36.6 C 67 16 101/60 93 L 05/10/21 07:00 36.4 C 88 16 99/59 L 97 05/10/21 02:23 36.2 C 60 14 103/63 96 - Problem List & Annotations (1) HIV (human immunodeficiency virus infection) SNOMED Code(s): 78582354 Code(s): B20 - HUMAN IMMUNODEFICIENCY VIRUS [HIV] DISEASE Status: Acute Current Visit: Yes Qualifiers: HIV symptom status: asymptomatic, with no history of HIV-related illness Qualified Code(s): Z21 - Asymptomatic human immunodeficiency virus [HIV] infection status (2) Acute cholecystitis SNOMED Code(s): 67744357 Code(s): K81.0 - ACUTE CHOLECYSTITIS Status: Acute Current Visit: Yes - Problem List Review Problem List Initiated/Reviewed/Updated: Yes - My Orders Last 24 Hours: Active Orders 24 hr Category Date Time Status Admission Status [Patient Status] [ADT] Routine ADT 05/09/21 17:26 Active Nasogastric Tube Management [Gastrointestinal Tube Mgmt Care 05/09/21 17:30 Active ] [RC] ASDIRECTED Notify Provider Consults [RC] ASDIRECTED Care 05/09/21 11:26 Active Overnight Pulse Oximetry [RC] Click to Edit Care 05/09/21 18:21 Active Remove Davis Catheter [Urinary Catheter Removal] [RC] Care 05/10/21 09:58 Active PER UNIT ROUTINE Surgical Drains [Drain Management] [RC] ASDIRECTED Care 05/09/21 17:33 Active Vital Signs [RC] Q4H Care 05/09/21 17:32 Active Consult to Physician [CONS] Routine Cons 05/09/21 11:25 Active Clear Liquid Diet [DIET] Diet 05/10/21 Lunch Active CBC W/O DIFF,HEMOGRAM [HEME] AM Lab 05/11/21 05:11 Ordered CBC W/O DIFF,HEMOGRAM [HEME] AM Lab 05/12/21 05:11 Ordered CMP [COMPREHENSIVE METABOLIC PN,CMP] [CHEM] AM Lab 05/11/21 05:11 Ordered CMP [COMPREHENSIVE METABOLIC PN,CMP] [CHEM] AM Lab 05/12/21 05:11 Ordered CULTURE, ANAEROBE & AEROBE [MREF] Routine Lab 05/09/21 15:40 Received Acetaminophen [Ofirmev 1000 mg/100 ml] 1,000 mg Med 05/09/21 23:00 Active Premix Bag 1 bag IV ONETIME Acetaminophen/oxyCODONE [Percocet 325-5 MG] Med 05/10/21 10:00 Active 2 tab PO Q4H PRN Cyclobenzaprine [Flexeril] Med 05/09/21 22:00 Active 5 mg PO TID Fluconazole [Diflucan] Med 05/09/21 17:00 Active 400 mg PO DAILY@1700 Ketorolac [Toradol] Med 05/09/21 17:45 Active 15 mg IVPUSH Q6H Patient's Own Medication [Ptom] Med 05/10/21 09:00 Active 1 each PO DAILY Patient's Own Medication [Ptom] Med 05/09/21 17:00 Active 1 each PO Q24H Scopolamine [Transderm-Scop] Med 05/09/21 17:45 Active 1.5 mg TRDERM Q72H hydroCHLOROthiazide Med 05/10/21 09:00 Active 25 mg PO DAILY lisinopriL [Prinivil] Med 05/10/21 09:00 Active 10 mg PO DAILY NG [Nasogastric Orogastric Tube Removal] [OM.PC] Oth 05/10/21 09:58 Ordered Routine Medication Orders Cyclobenzaprine HCl (Cyclobenzaprine 5 Mg Tab) 5 mg PO TID [facility] Admin: 05/10/21 05:53 Dose: 5 mg Documented by: Admin: 05/09/21 22:58 Dose: 5 mg Documented by: KENDY Diphenhydramine HCl (Diphenhydramine 50 Mg/Ml Sdv) 25 mg IVPUSH Q4H PRN PRN Reason: Itching Fluconazole (Fluconazole 100 Mg Tab) 400 mg PO DAILY@1700 [facility] Last Admin: 05/09/21 19:13 Dose: 400 mg Documented by: DAVID Hydrochlorothiazide (Hydrochlorothiazide 25 Mg Tab) 25 mg PO DAILY [facility] Last Admin: 05/10/21 08:33 Dose: 25 mg Documented by: WILLY Hydromorphone HCl (Hydromorphone 1 Mg/Ml Syringe) 0.5 mg IVPUSH Q1H PRN PRN Reason: Pain (severe 7-10) Lactated Ringer's (Ringers, Lactated) 1,000 mls @ 125 mls/hr IV ASDIRECTED [facility] Last Admin: 05/10/21 08:41 Dose: 125 mls/hr Documented by: Infusion: 05/10/21 07:54 Dose: 125 mls/hr Documented by: Admin: 05/09/21 23:54 Dose: 125 mls/hr Documented by: Infusion: 05/09/21 14:30 Dose: 125 mls/hr Documented by: Admin: 05/09/21 06:30 Dose: 125 mls/hr Documented by: Infusion: 05/09/21 06:30 Dose: 125 mls/hr Documented by: Admin: 05/08/21 23:22 Dose: 125 mls/hr Documented by: KENDY Piperacillin Sod/Tazobactam (Sod 3.375 gm/ Sodium Chloride) 50 mls @ 100 mls/hr IV Q6H [facility] Last Admin: 05/10/21 08:34 Dose: 100 mls/hr Documented by: Infusion: 05/10/21 02:50 Dose: 100 mls/hr Documented by: Admin: 05/10/21 02:20 Dose: 100 mls/hr Documented by: Infusion: 05/09/21 21:25 Dose: 100 mls/hr Documented by: Admin: 05/09/21 20:55 Dose: 100 mls/hr Documented by: Infusion: 05/09/21 14:23 Dose: 100 mls/hr Documented by: Admin: 05/09/21 13:53 Dose: 100 mls/hr Documented by: Infusion: 05/09/21 09:09 Dose: 100 mls/hr Documented by: Admin: 05/09/21 08:39 Dose: 100 mls/hr Documented by: Infusion: 05/09/21 03:32 Dose: 100 mls/hr Documented by: Admin: 05/09/21 03:02 Dose: 100 mls/hr Documented by: Infusion: 05/08/21 21:46 Dose: 100 mls/hr Documented by: Admin: 05/08/21 21:16 Dose: 100 mls/hr Documented by: JORGE LUIS Lactated Ringer's (Ringers, Lactated) 500 mls @ 500 mls/hr IV ASDIRECTED [facility] Last Admin: 05/09/21 08:40 Dose: 500 mls/hr Documented by: DAIVD Acetaminophen 1,000 mg/ Premix 100 mls @ 400 mls/hr IV ONETIME PRN PRN Reason: PAIN Ketorolac Tromethamine (Ketorolac 15 Mg/Ml Sdv) 15 mg IVPUSH Q6H [facility] Stop: 05/14/21 23:00 Last Admin: 05/10/21 05:53 Dose: 15 mg Documented by: Admin: 05/09/21 23:55 Dose: 15 mg Documented by: Admin: 05/09/21 19:04 Dose: 15 mg Documented by: DAVID Lisinopril (Lisinopril 10 Mg Tab) 10 mg PO DAILY [facility] Last Admin: 05/10/21 08:33 Dose: Not Given Documented by: WILLY Ondansetron HCl (Ondansetron 4 Mg/2 Ml Sdv) 4 mg IVPUSH Q6H PRN PRN Reason: Nausea/Vomiting Oxycodone/Acetaminophen (Acetaminophen/Oxycodone 325-5 Mg Tab) 2 tab PO Q4H PRN PRN Reason: Pain (severe 7-10) Bictegrav/Emtricit/Tenofov Ala [ Biktarvy 50-200-25 Mg Tab 1 each PO Q24H [facility] Last Admin: 05/09/21 18:54 Dose: 1 each Documented by: DAVID Dapsone 100 Mg Tab 1 each PO DAILY [facility] Last Admin: 05/10/21 08:42 Dose: 1 each Documented by: WILLY Scopolamine (Scopolamine 1.5 Mg Transdermal Patch) 1.5 mg TRDERM Q72H [facility] Last Admin: 05/09/21 19:13 Dose: 1.5 mg Documented by: DAVID Sodium Chloride (Sodium Chloride 0.9% 10 Ml Syringe) 10 ml FLUSH ASDIRECTED PRN PRN Reason: Keep Vein Open Sodium Chloride (Sodium Chloride 0.9% 2.5 Ml Syringe) 2.5 ml FLUSH ASDIRECTED PRN PRN Reason: Keep Vein Open Sodium Chloride (Sodium Chloride 0.9% 10 Ml Sdv) 10 ml IV ASDIRECTED PRN PRN Reason: IV Use - Assessment Assessment (Free Text/Narrative):: POD #1 s/p laparoscopic converted to open cholecystectomy for severe acute cholecystitis Neuro: Percocet prn pain, scheduled IV toradol, d/c IV tylenol, scheduled flexeril CV/Pulm: Vital signs stable. Encouraged patient to start out of bed activity and IS use. GI: NG with 550ml out. No nausea. D/C NG and will allow clear liquid diet today. Multivitamin today. AST/ALT still slightly elevated likely from surgery. Drain with bilious staining of serosanguineous fluid. Continue to monitor closely. Likely coming from liver bed. Renal: UOP adequate. BUN/Cr relatively unchanged. D/C davis catheter. Patient is fluid up 6.5L. Will discontinue IVF. ID: Continue IV zosyn and oral flucanazole. WBC 6.2. Heme: Hemoglobin down to 10.2 from 11.6 liekly from fluids and blood loss from surgery. Will d/c IVF and continue to monitor. Px: GI px: protonix 40mg po. DVT px: Heparin 5000 units BID, SCDs
[2021-05-10] MEDS: Heparin Sodium 5,000 Units/ML Vial SUBCUT SCH ×2 (11:15→23:53)
--- NOTE | 2021-05-10 16:07 | PCM.PN ---
- General Info Date of Service: 05/10/21 - Review of Systems Systems Review Comment:: abdominal pain controlled, wanting to eat more - Patient Data Vitals - Most Recent: Last Vital Signs Temp 36.3 C 05/10/21 11:00 Pulse 72 05/10/21 11:00 Resp 16 05/10/21 11:00 BP 118/70 05/10/21 11:00 Pulse Ox 95 05/10/21 11:00 Weight - Most Recent: 77.474 kg I&O - Last 24 Hours: Intake & Output 05/10/21 05/10/21 05/10/21 06:59 14:59 22:59 Intake Total 1209 Output Total 1020 Balance 189 Lab Results Last 24 Hours: Laboratory Results - last 24 hr 05/09/21 05/10/21 05/10/21 Range/Units 17:42 07:15 07:15 WBC 6.22 (4.0-11.0) K/uL RBC 3.19 L (4.50-5.90) M/uL Hgb 11.6 L 10.2 L (13.0-17.0) g/dL Hct 34.1 L 29.6 L (38.0-50.0) % MCV 92.8 (80.0-98.0) fL MCH 32.0 (27.0-32.0) pg MCHC 34.5 (31.0-37.0) g/dL RDW Std Deviation 46.7 (28.0-62.0) fl RDW Coeff of Moi 14 (11.0-15.0) % Plt Count 191 (150-400) K/uL MPV 10.20 (7.40-12.00) fL Nucleated RBC % 0.0 /100WBC Nucleated RBCs # 0 K/uL Sodium 137 (136-148) mmol/L Potassium 4.1 (3.5-5.1) mmol/L Chloride 103 (98-107) mmol/L Carbon Dioxide 27.0 (21.0-32.0) mmol/L BUN 24 H (7.0-18.0) mg/dL Creatinine 1.4 H (0.8-1.3) mg/dL Est Cr Clr Drug Dosing 55.41 mL/min Estimated GFR (MDRD) 51.5 ml/min Glucose 133 H (74-106) mg/dL Calcium 7.5 L (8.5-10.1) mg/dL Total Bilirubin 1.1 H (0.2-1.0) mg/dL AST 76 H (15-37) IU/L ALT 92 H (14-63) IU/L Alkaline Phosphatase 83 (46-116) U/L Total Protein 6.0 L (6.4-8.2) g/dL Albumin 2.4 L (3.4-5.0) g/dL Globulin 3.6 (2.6-4.0) g/dL Albumin/Globulin Ratio 0.7 L (0.9-1.6) Med Orders - Current: Current Medications Cyclobenzaprine HCl (Cyclobenzaprine 5 Mg Tab) 5 mg PO TID [facility] Last Admin: 05/10/21 14:17 Dose: 5 mg Documented by: Diphenhydramine HCl (Diphenhydramine 50 Mg/Ml Sdv) 25 mg IVPUSH Q4H PRN PRN Reason: Itching Fluconazole (Fluconazole 100 Mg Tab) 400 mg PO DAILY@1700 [facility] Last Admin: 05/09/21 19:13 Dose: 400 mg Documented by: Heparin Sodium (Porcine) (Heparin Sodium 5,000 Units/Ml Vial) 5,000 units SUBCUT Q12H [facility] Last Admin: 05/10/21 11:15 Dose: 5,000 units Documented by: Hydrochlorothiazide (Hydrochlorothiazide 25 Mg Tab) 25 mg PO DAILY [facility] Last Admin: 05/10/21 08:33 Dose: 25 mg Documented by: Hydromorphone HCl (Hydromorphone 1 Mg/Ml Syringe) 0.5 mg IVPUSH Q1H PRN PRN Reason: Pain (severe 7-10) Lactated Ringer's (Ringers, Lactated) 1,000 mls @ 125 mls/hr IV ASDIRECTED [facility] Last Admin: 05/10/21 08:41 Dose: 125 mls/hr Documented by: Piperacillin Sod/Tazobactam (Sod 3.375 gm/ Sodium Chloride) 50 mls @ 100 mls/hr IV Q6H [facility] Last Admin: 05/10/21 14:17 Dose: 100 mls/hr Documented by: Lactated Ringer's (Ringers, Lactated) 500 mls @ 500 mls/hr IV ASDIRECTED [facility] Last Admin: 05/09/21 08:40 Dose: 500 mls/hr Documented by: Acetaminophen 1,000 mg/ Premix 100 mls @ 400 mls/hr IV ONETIME PRN PRN Reason: PAIN Ketorolac Tromethamine (Ketorolac 15 Mg/Ml Sdv) 15 mg IVPUSH Q6H [facility] Stop: 05/14/21 23:00 Last Admin: 05/10/21 11:15 Dose: 15 mg Documented by: Lisinopril (Lisinopril 10 Mg Tab) 10 mg PO DAILY [facility] Last Admin: 05/10/21 08:33 Dose: Not Given Documented by: Multivitamins/Minerals/Vitamin C (Multivitamin Tab) 1 tab PO BEDTIME [facility] Ondansetron HCl (Ondansetron 4 Mg/2 Ml Sdv) 4 mg IVPUSH Q6H PRN PRN Reason: Nausea/Vomiting Oxycodone/Acetaminophen (Acetaminophen/Oxycodone 325-5 Mg Tab) 2 tab PO Q4H PRN PRN Reason: Pain (severe 7-10) Pantoprazole Sodium (Pantoprazole 40 Mg Tab.Cr) 40 mg PO BEDTIME [facility] Bictegrav/Emtricit/Tenofov Ala [ Biktarvy 50-200-25 Mg Tab 1 each PO Q24H [facility] Last Admin: 05/09/21 18:54 Dose: 1 each Documented by: Dapsone 100 Mg Tab 1 each PO DAILY [facility] Last Admin: 05/10/21 08:42 Dose: 1 each Documented by: Scopolamine (Scopolamine 1.5 Mg Transdermal Patch) 1.5 mg TRDERM Q72H [facility] Last Admin: 05/09/21 19:13 Dose: 1.5 mg Documented by: Sodium Chloride (Sodium Chloride 0.9% 10 Ml Syringe) 10 ml FLUSH ASDIRECTED PRN PRN Reason: Keep Vein Open Sodium Chloride (Sodium Chloride 0.9% 2.5 Ml Syringe) 2.5 ml FLUSH ASDIRECTED PRN PRN Reason: Keep Vein Open Sodium Chloride (Sodium Chloride 0.9% 10 Ml Sdv) 10 ml IV ASDIRECTED PRN PRN Reason: IV Use Discontinued Medications Hydrocodone Bitart/Acetaminophen (Acetaminophen/Hydrocodone 325-5 Mg Tab) 2 tab PO Q4H PRN PRN Reason: Pain (moderate 4-6) Bupivacaine HCl (Bupivacaine 0.5% 30 Ml Sdv) Confirm Administered Dose 30 ml .ROUTE .STK-MED ONE Stop: 05/09/21 14:13 Bupivacaine HCl (Bupivacaine 0.5% 30 Ml Sdv) Confirm Administered Dose 30 ml .ROUTE .STK-MED ONE Stop: 05/09/21 15:32 Bupivacaine HCl (Bupivacaine 0.5% 30 Ml Sdv) Confirm Administered Dose 90 ml .ROUTE .STK-MED ONE Stop: 05/09/21 15:33 Cefazolin Sodium (Cefazolin 1 Gm Vial) Confirm Administered Dose 1 gm .ROUTE .STK-MED ONE Stop: 05/09/21 14:14 Cefazolin Sodium (Cefazolin 1 Gm Vial) Confirm Administered Dose 2 gm .ROUTE .STK-MED ONE Stop: 05/09/21 15:40 Dapsone (Dapsone 100 Mg Tab) 100 mg PO DAILY [facility] Desflurane (Desflurane 240 Ml Bottle) Confirm Administered Dose 240 ml .ROUTE .STK-MED ONE Stop: 05/09/21 14:21 Dexamethasone (Dexamethasone 4 Mg/Ml 5 Ml Mdv) Confirm Administered Dose 20 mg .ROUTE .STK-MED ONE Stop: 05/09/21 16:48 Fentanyl (Fentanyl 250 Mcg/5 Ml Sdv) Confirm Administered Dose 250 mcg .ROUTE .STK-MED ONE Stop: 05/09/21 14:03 Fentanyl (Fentanyl 250 Mcg/5 Ml Sdv) Confirm Administered Dose 250 mcg .ROUTE .STK-MED ONE Stop: 05/09/21 15:06 Fentanyl (Fentanyl 100 Mcg/2 Ml Sdv) Confirm Administered Dose 100 mcg .ROUTE .STK-MED ONE Stop: 05/09/21 15:41 Fentanyl (Fentanyl 100 Mcg/2 Ml Sdv) Confirm Administered Dose 100 mcg .ROUTE .STK-MED ONE Stop: 05/09/21 16:34 Hydromorphone HCl (Hydromorphone 2 Mg/Ml Syringe) 0.5 mg IVPUSH Q1H PRN PRN Reason: Pain (severe 7-10) Hydromorphone HCl (Hydromorphone 1 Mg/Ml Syringe) 0.5 mg IVPUSH ONETIME PRN PRN Reason: Abdominal Pain Last Admin: 05/09/21 18:04 Dose: 0.5 mg Documented by: Sodium Chloride (Normal Saline) 1,000 mls @ 999 mls/hr IV STAT ONE Stop: 05/08/21 21:08 Last Admin: 05/08/21 21:06 Dose: 999 mls/hr Documented by: Acetaminophen (Ofirmev 1000 Mg/100 Ml) Confirm Administered Dose 100 mls @ as directed .ROUTE .STK-MED ONE Stop: 05/09/21 16:51 Iopamidol (Iopamidol 755 Mg/Ml 500 Ml Multipack Bottle) 85 ml IVPUSH ONETIME STA Stop: 05/08/21 17:03 Last Admin: 05/08/21 17:13 Dose: 85 ml Documented by: Ketorolac Tromethamine (Ketorolac 30 Mg/Ml Sdv) Confirm Administered Dose 30 mg .ROUTE .STK-MED ONE Stop: 05/09/21 16:50 Miscellaneous Medication (Phenylephrine Hcl In 0.9% Nacl 1 Mg/10 Ml Syringe) Confirm Administered Dose 1 mg .ROUTE .STK-MED ONE Stop: 05/09/21 16:00 Morphine Sulfate (Morphine 4 Mg/Ml Syringe) 4 mg IVPUSH ONETIME ONE Stop: 05/08/21 20:09 Last Admin: 05/08/21 21:12 Dose: 4 mg Documented by: Octyl Cyanoacrylate (Octyl 2-Cyanoacrylate 1 Tube) Confirm Administered Dose 1 applic .ROUTE .STK-MED ONE Stop: 05/09/21 14:13 Ondansetron HCl (Ondansetron 4 Mg/2 Ml Sdv) 4 mg IVPUSH ONETIME ONE Stop: 05/08/21 20:09 Last Admin: 05/08/21 21:09 Dose: 4 mg Documented by: Ondansetron HCl (Ondansetron 4 Mg/2 Ml Sdv) Confirm Administered Dose 4 mg .ROU TE .STK-MED ONE Stop: 05/09/21 16:48 Propofol (Propofol 200 Mg/20 Ml Sdv) Confirm Administered Dose 200 mg .ROUTE .STK-MED ONE Stop: 05/09/21 14:02 Rocuronium [place] (Rocuronium [place] 50 Mg/5 Ml Syringe) Confirm Administered Dose 50 mg .ROUTE .STK-MED ONE Stop: 05/09/21 15:40 Rocuronium [place] (Rocuronium [place] 50 Mg/5 Ml Syringe) Confirm Administered Dose 50 mg .ROUTE .STK-MED ONE Stop: 05/09/21 15:48 - Exam Urinary Catheter Total Time: 0Days 8Hours General: Alert, Oriented Neck: Supple Lungs: Clear to Auscultation, Normal Respiratory Effort Extremities: Non-Tender, No Pedal Edema Skin: Warm, Dry, Intact Neurological: No New Focal Deficit - Patient Data Lab Results Last 24 hrs: Laboratory Results - last 24 hr 05/09/21 05/10/21 05/10/21 Range/Units 17:42 07:15 07:15 WBC 6.22 (4.0-11.0) K/uL RBC 3.19 L (4.50-5.90) M/uL Hgb 11.6 L 10.2 L (13.0-17.0) g/dL Hct 34.1 L 29.6 L (38.0-50.0) % MCV 92.8 (80.0-98.0) fL MCH 32.0 (27.0-32.0) pg MCHC 34.5 (31.0-37.0) g/dL RDW Std Deviation 46.7 (28.0-62.0) fl RDW Coeff of Moi 14 (11.0-15.0) % Plt Count 191 (150-400) K/uL MPV 10.20 (7.40-12.00) fL Nucleated RBC % 0.0 /100WBC Nucleated RBCs # 0 K/uL Sodium 137 (136-148) mmol/L Potassium 4.1 (3.5-5.1) mmol/L Chloride 103 (98-107) mmol/L Carbon Dioxide 27.0 (21.0-32.0) mmol/L BUN 24 H (7.0-18.0) mg/dL Creatinine 1.4 H (0.8-1.3) mg/dL Est Cr Clr Drug Dosing 55.41 mL/min Estimated GFR (MDRD) 51.5 ml/min Glucose 133 H (74-106) mg/dL Calcium 7.5 L (8.5-10.1) mg/dL Total Bilirubin 1.1 H (0.2-1.0) mg/dL AST 76 H (15-37) IU/L ALT 92 H (14-63) IU/L Alkaline Phosphatase 83 (46-116) U/L Total Protein 6.0 L (6.4-8.2) g/dL Albumin 2.4 L (3.4-5.0) g/dL Globulin 3.6 (2.6-4.0) g/dL Albumin/Globulin Ratio 0.7 L (0.9-1.6) Result Diagrams: 05/10/21 07:15 05/10/21 07:15 Sepsis Event Note - Evaluation Sepsis Screening Result: No Definite Risk - Focused Exam Vital Signs: Vital Signs Temp Pulse Resp BP BP Pulse Ox 05/10/21 11:00 36.3 C 72 16 118/70 95 05/10/21 08:33 99/59 L 05/10/21 08:00 36.6 C 67 16 101/60 93 L 05/10/21 07:00 36.4 C 88 16 99/59 L 97 - Problem List Review Problem List Initiated/Reviewed/Updated: Yes - Plan Plan:: POD#1 continue lisinopril, viktary, and diflucan. Encourage incentive spirometry. heparin for DVT prophylaxis
[2021-05-10] MEDS: Fluconazole 100 MG Tab PO SCH (17:08)
[2021-05-10] MEDS: [UNRECOGNIZED DRUG - OTHER] PO SCH (18:23)
[2021-05-10] MEDS: Multivitamin Tab PO SCH (21:20)
[2021-05-10] MEDS: Pantoprazole 40 MG Tab.CR PO SCH (21:20)
[2021-05-11] MEDS: Piperacillin/Tazobactam 3.375 GM in Sodium Chloride 0.9% 50 ML IV SCH ×4 (03:00→20:06)
[2021-05-11] MEDS: Cyclobenzaprine 5 MG Tab PO SCH ×3 (06:34→23:43)
[2021-05-11] MEDS: Ketorolac 15 MG/ML SDV IVPUSH SCH ×4 (06:34→23:43)
[2021-05-11 06:47] LABS: CARBON DIOXIDE,CO2 28.9 mmol/L (21.0-32.0); POTASSIUM,K 3.5 mmol/L (3.5-5.1)
[2021-05-11] MEDS: Hydrochlorothiazide 25 MG Tab PO SCH (08:18)
[2021-05-11] MEDS: Lisinopril 10 MG Tab PO SCH (08:18)
[2021-05-11] MEDS: DAPSONE 100 MG PO SCH (08:19)
--- NOTE | 2021-05-11 09:15 | PCM.SURGPN ---
- General Info Date of Service: 05/11/21 POD#: 2 Post-Op Diagnosis: Cholelithiasis w/ severe acute cholecystitis. Functional Status: Reports: Pain Controlled, Tolerating Diet, Ambulating, Incentive Spirometry. Denies: New Symptoms - Review of Systems General: Denies: Fever, Weakness, Fatigue, Malaise HEENT: Reports: No Symptoms Pulmonary: Denies: Shortness of Breath, Cough Cardiovascular: Denies: Chest Pain, Palpitations Gastrointestinal: Reports: Flatus. Denies: Abdominal Pain, Constipation, Decreased Appetite, Diarrhea, Nausea, Vomiting Genitourinary: Denies: Dysuria, Frequency, Burning, Pain Musculoskeletal: Reports: No Symptoms Skin: Denies: Cyanosis, Jaundice, Mottled, Pallor Neurological: Reports: No Symptoms Psychiatric: Reports: No Symptoms - Patient Data Vitals - Most Recent: Last Vital Signs Temp 97.9 F 05/11/21 07:00 Pulse 58 L 05/11/21 07:00 Resp 16 05/11/21 07:00 BP 110/70 05/11/21 08:18 Pulse Ox 97 05/11/21 07:00 Weight - Most Recent: 170 lb 12.8 oz I&O - Last 24 Hours: Intake & Output 05/10/21 05/11/21 05/11/21 19:59 03:59 11:59 Intake Total 50 500 Output Total 35 Balance 50 465 Lab Results Last 24 Hrs: Laboratory Results - last 24 hr 05/11/21 05/11/21 Range/Units 05:46 05:46 WBC 4.29 (4.0-11.0) K/uL RBC 2.98 L (4.50-5.90) M/uL Hgb 9.4 L (13.0-17.0) g/dL Hct 28.1 L (38.0-50.0) % MCV 94.3 (80.0-98.0) fL MCH 31.5 (27.0-32.0) pg MCHC 33.5 (31.0-37.0) g/dL RDW Std Deviation 47.4 (28.0-62.0) fl RDW Coeff of Moi 14 (11.0-15.0) % Plt Count 202 (150-400) K/uL MPV 10.30 (7.40-12.00) fL Nucleated RBC % 0.0 /100WBC Nucleated RBCs # 0 K/uL Sodium 140 (136-148) mmol/L Potassium 3.5 (3.5-5.1) mmol/L Chloride 107 (98-107) mmol/L Carbon Dioxide 28.9 (21.0-32.0) mmol/L BUN 20 H (7.0-18.0) mg/dL Creatinine 1.6 H (0.8-1.3) mg/dL Est Cr Clr Drug Dosing 48.48 mL/min Estimated GFR (MDRD) 44.2 ml/min Glucose 103 (74-106) mg/dL Calcium 7.8 L (8.5-10.1) mg/dL Total Bilirubin 1.1 H (0.2-1.0) mg/dL AST 52 H (15-37) IU/L ALT 62 (14-63) IU/L Alkaline Phosphatase 79 (46-116) U/L Total Protein 5.9 L (6.4-8.2) g/dL Albumin 2.4 L (3.4-5.0) g/dL Globulin 3.5 (2.6-4.0) g/dL Albumin/Globulin Ratio 0.7 L (0.9-1.6) Umair Results Last 24 Hrs: Microbiology 05/09/21 15:40 Gram Stain - Final Bile Med Orders - Current: Current Medications Cyclobenzaprine HCl (Cyclobenzaprine 5 Mg Tab) 5 mg PO TID [facility] Last Admin: 05/11/21 06:34 Dose: 5 mg Documented by: Diphenhydramine HCl (Diphenhydramine 50 Mg/Ml Sdv) 25 mg IVPUSH Q4H PRN PRN Reason: Itching Fluconazole (Fluconazole 100 Mg Tab) 400 mg PO DAILY@1700 [facility] Last Admin: 05/10/21 17:08 Dose: 400 mg Documented by: Heparin Sodium (Porcine) (Heparin Sodium 5,000 Units/Ml Vial) 5,000 units SUBCUT Q12H [facility] Last Admin: 05/10/21 23:53 Dose: 5,000 units Documented by: Hydrochlorothiazide (Hydrochlorothiazide 25 Mg Tab) 25 mg PO DAILY [facility] Last Admin: 05/11/21 08:18 Dose: 25 mg Documented by: Hydromorphone HCl (Hydromorphone 1 Mg/Ml Syringe) 0.5 mg IVPUSH Q1H PRN PRN Reason: Pain (severe 7-10) Lactated Ringer's (Ringers, Lactated) 1,000 mls @ 125 mls/hr IV ASDIRECTED [facility] Last Admin: 05/10/21 08:41 Dose: 125 mls/hr Documented by: Piperacillin Sod/Tazobactam (Sod 3.375 gm/ Sodium Chloride) 50 mls @ 100 mls/hr IV Q6H [facility] Last Admin: 05/11/21 08:18 Dose: 100 mls/hr Documented by: Lactated Ringer's (Ringers, Lactated) 500 mls @ 500 mls/hr IV ASDIRECTED [facility] Last Admin: 05/09/21 08:40 Dose: 500 mls/hr Documented by: Acetaminophen 1,000 mg/ Premix 100 mls @ 400 mls/hr IV ONETIME PRN PRN Reason: PAIN Ketorolac Tromethamine (Ketorolac 15 Mg/Ml Sdv) 15 mg IVPUSH Q6H [facility] Stop: 05/14/21 23:00 Last Admin: 05/11/21 06:34 Dose: 15 mg Documented by: Lisinopril (Lisinopril 10 Mg Tab) 10 mg PO DAILY [facility] Last Admin: 05/11/21 08:18 Dose: 10 mg Documented by: Multivitamins/Minerals/Vitamin C (Multivitamin Tab) 1 tab PO BEDTIME [facility] Last Admin: 05/10/21 21:20 Dose: 1 tab Documented by: Ondansetron HCl (Ondansetron 4 Mg/2 Ml Sdv) 4 mg IVPUSH Q6H PRN PRN Reason: Nausea/Vomiting Oxycodone/Acetaminophen (Acetaminophen/Oxycodone 325-5 Mg Tab) 2 tab PO Q4H PRN PRN Reason: Pain (severe 7-10) Pantoprazole Sodium (Pantoprazole 40 Mg Tab.Cr) 40 mg PO BEDTIME [facility] Last Admin: 05/10/21 21:20 Dose: 40 mg Documented by: Bictegrav/Emtricit/Tenofov Ala [ Biktarvy 50-200-25 Mg Tab 1 each PO Q24H [facility] Last Admin: 05/10/21 18:23 Dose: 1 each Documented by: Dapsone 100 Mg Tab 1 each PO DAILY [facility] Last Admin: 05/11/21 08:19 Dose: 1 each Documented by: Scopolamine (Scopolamine 1.5 Mg Transdermal Patch) 1.5 mg TRDERM Q72H [facility] Last Admin: 05/09/21 19:13 Dose: 1.5 mg Documented by: Sodium Chloride (Sodium Chloride 0.9% 10 Ml Syringe) 10 ml FLUSH ASDIRECTED PRN PRN Reason: Keep Vein Open Sodium Chloride (Sodium Chloride 0.9% 2.5 Ml Syringe) 2.5 ml FLUSH ASDIRECTED PRN PRN Reason: Keep Vein Open Sodium Chloride (Sodium Chloride 0.9% 10 Ml Sdv) 10 ml IV ASDIRECTED PRN PRN Reason: IV Use Discontinued Medications Hydrocodone Bitart/Acetaminophen (Acetaminophen/Hydrocodone 325-5 Mg Tab) 2 tab PO Q4H PRN PRN Reason: Pain (moderate 4-6) Bupivacaine HCl (Bupivacaine 0.5% 30 Ml Sdv) Confirm Administered Dose 30 ml .ROUTE .STK-MED ONE Stop: 05/09/21 14:13 Bupivacaine HCl (Bupivacaine 0.5% 30 Ml Sdv) Confirm Administered Dose 30 ml .ROUTE .STK-MED ONE Stop: 05/09/21 15:32 Bupivacaine HCl (Bupivacaine 0.5% 30 Ml Sdv) Confirm Administered Dose 90 ml .ROUTE .STK-MED ONE Stop: 05/09/21 15:33 Cefazolin Sodium (Cefazolin 1 Gm Vial) Confirm Administered Dose 1 gm .ROUTE .STK-MED ONE Stop: 05/09/21 14:14 Cefazolin Sodium (Cefazolin 1 Gm Vial) Confirm Administered Dose 2 gm .ROUTE .STK-MED ONE Stop: 05/09/21 15:40 Dapsone (Dapsone 100 Mg Tab) 100 mg PO DAILY [facility] Desflurane (Desflurane 240 Ml Bottle) Confirm Administered Dose 240 ml .ROUTE .STK-MED ONE Stop: 05/09/21 14:21 Dexamethasone (Dexamethasone 4 Mg/Ml 5 Ml Mdv) Confirm Administered Dose 20 mg .ROUTE .STK-MED ONE Stop: 05/09/21 16:48 Fentanyl (Fentanyl 250 Mcg/5 Ml Sdv) Confirm Administered Dose 250 mcg .ROUTE .STK-MED ONE Stop: 05/09/21 14:03 Fentanyl (Fentanyl 250 Mcg/5 Ml Sdv) Confirm Administered Dose 250 mcg .ROUTE .STK-MED ONE Stop: 05/09/21 15:06 Fentanyl (Fentanyl 100 Mcg/2 Ml Sdv) Confirm Administered Dose 100 mcg .ROUTE .STK-MED ONE Stop: 05/09/21 15:41 Fentanyl (Fentanyl 100 Mcg/2 Ml Sdv) Confirm Administered Dose 100 mcg .ROUTE .STK-MED ONE Stop: 05/09/21 16:34 Hydromorphone HCl (Hydromorphone 2 Mg/Ml Syringe) 0.5 mg IVPUSH Q1H PRN PRN Reason: Pain (severe 7-10) Hydromorphone HCl (Hydromorphone 1 Mg/Ml Syringe) 0.5 mg IVPUSH ONETIME PRN PRN Reason: Abdominal Pain Last Admin: 05/09/21 18:04 Dose: 0.5 mg Documented by: Sodium Chloride (Normal Saline) 1,000 mls @ 999 mls/hr IV STAT ONE Stop: 05/08/21 21:08 Last Admin: 05/08/21 21:06 Dose: 999 mls/hr Documented by: Acetaminophen (Ofirmev 1000 Mg/100 Ml) Confirm Administered Dose 100 mls @ as directed .ROUTE .STK-MED ONE Stop: 05/09/21 16:51 Iopamidol (Iopamidol 755 Mg/Ml 500 Ml Multipack Bottle) 85 ml IVPUSH ONETIME STA Stop: 05/08/21 17:03 Last Admin: 05/08/21 17:13 Dose: 85 ml Documented by: Ketorolac Tromethamine (Ketorolac 30 Mg/Ml Sdv) Confirm Administered Dose 30 mg .ROUTE .STK-MED ONE Stop: 05/09/21 16:50 Miscellaneous Medication (Phenylephrine Hcl In 0.9% Nacl 1 Mg/10 Ml Syringe) Confirm Administered Dose 1 mg .ROUTE .STK-MED ONE Stop: 05/09/21 16:00 Morphine Sulfate (Morphine 4 Mg/Ml Syringe) 4 mg IVPUSH ONETIME ONE Stop: 05/08/21 20:09 Last Admin: 05/08/21 21:12 Dose: 4 mg Documented by: Octyl Cyanoacrylate (Octyl 2-Cyanoacrylate 1 Tube) Confirm Administered Dose 1 applic .ROUTE .STK-MED ONE Stop: 05/09/21 14:13 Ondansetron HCl (Ondansetron 4 Mg/2 Ml Sdv) 4 mg IVPUSH ONETIME ONE Stop: 05/08/21 20:09 Last Admin: 05/08/21 21:09 Dose: 4 mg Documented by: Ondansetron HCl (Ondansetron 4 Mg/2 Ml Sdv) Confirm Administered Dose 4 mg .ROUTE .STK-MED ONE Stop: 05/09/21 16:48 Propofol (Propofol 200 Mg/20 Ml Sdv) Confirm Administered Dose 200 mg .ROUTE .STK-MED ONE Stop: 05/09/21 14:02 Rocuronium [place] (Rocuronium [place] 50 Mg/5 Ml Syringe) Confirm Administered Dose 50 mg .ROUTE .STK-MED ONE Stop: 05/09/21 15:40 Rocuronium [place] (Rocuronium [place] 50 Mg/5 Ml Syringe) Confirm Administered Dose 50 mg .ROUTE .STK-MED ONE Stop: 05/09/21 15:48 - Exam Wound/Incisions: Healing Well, No Drainage. No: Erythema General: Alert, Oriented, Cooperative, No Acute Distress HEENT: Pupils Equal, Pupils Reactive. No: Scleral Icterus Neck: Supple Lungs: Clear to Auscultation, Normal Respiratory Effort Cardiovascular: Regular Rate, Regular Rhythm. No: Tachycardia GI/Abdominal Exam: Normal Bowel Sounds, Soft, Non-Tender, No Distention. No: Guarding, Rigid, Rebound Extremities: Normal Inspection, Normal Range of Motion, Non-Tender Skin: Warm, Dry, Intact Neurological: No New Focal Deficit Psy/Mental Status: Alert, Normal Affect, Normal Mood Sepsis Event Note - Evaluation Sepsis Screening Result: No Definite Risk - Focused Exam Vital Signs: Vital Signs Temp Pulse Resp BP BP Pulse Ox 05/11/21 08:18 110/70 05/11/21 07:00 97.9 F 58 L 16 110/70 97 05/11/21 03:01 97.1 F 64 16 110/66 94 L 05/11/21 00:00 98.1 F 74 15 121/62 93 L - Problem List & Annotations (1) Acute cholecystitis SNOMED Code(s): 62422604 Code(s): K81.0 - ACUTE CHOLECYSTITIS Status: Acute Current Visit: Yes - Problem List Review Problem List Initiated/Reviewed/Updated: Yes - My Orders Last 24 Hours: Active Orders 24 hr Category Date Time Status Remove Umana Catheter [Urinary Catheter Removal] [RC] Care 05/10/21 09:58 Active PER UNIT ROUTINE Clear Liquid Diet [DIET] Diet 05/10/21 Lunch Active Low Fat Diet [DIET] Diet 05/11/21 Lunch Ordered CBC W/O DIFF,HEMOGRAM [HEME] AM Lab 05/12/21 05:11 Ordered CMP [COMPREHENSIVE METABOLIC PN,CMP] [CHEM] AM Lab 05/12/21 05:11 Ordered Acetaminophen/oxyCODONE [Percocet 325-5 MG] Med 05/10/21 10:00 Active 2 tab PO Q4H PRN Heparin Sodium Med 05/10/21 11:00 Active 5,000 units SUBCUT Q12H Multivitamins [Tab-A-Temi] Med 05/10/21 21:00 Active 1 tab PO BEDTIME Pantoprazole [ProTONIX] Med 05/10/21 21:00 Active 40 mg PO BEDTIME Patient's Own Medication [Ptom] Med 05/10/21 09:00 Active 1 each PO DAILY hydroCHLOROthiazide Med 05/10/21 09:00 Active 25 mg PO DAILY lisinopriL [Prinivil] Med 05/10/21 09:00 Active 10 mg PO DAILY Medication Orders Cyclobenzaprine HCl (Cyclobenzaprine 5 Mg Tab) 5 mg PO TID [facility] Last Admin: 05/11/21 06:34 Dose: 5 mg Documented by: Admin: 05/10/21 21:20 Dose: 5 mg Documented by: Admin: 05/10/21 14:17 Dose: 5 mg Documented by: Admin: 05/10/21 05:53 Dose: 5 mg Documented by: Admin: 05/09/21 22:58 Dose: 5 mg Documented by: KENDY Diphenhydramine HCl (Diphenhydramine 50 Mg/Ml Sdv) 25 mg IVPUSH Q4H PRN PRN Reason: Itching Fluconazole (Fluconazole 100 Mg Tab) 400 mg PO DAILY@1700 [facility] Last Admin: 05/10/21 17:08 Dose: 400 mg Documented by: Admin: 05/09/21 19:13 Dose: 400 mg Documented by: DAVID Heparin Sodium (Porcine) (Heparin Sodium 5,000 Units/Ml Vial) 5,000 units SUBCUT Q12H [facility] Last Admin: 05/10/21 23:53 Dose: 5,000 units Documented by: Admin: 05/10/21 11:15 Dose: 5,000 units Documented by: WILLY Hydrochlorothiazide (Hydrochlorothiazide 25 Mg Tab) 25 mg PO DAILY [facility] Admin: 05/11/21 08:18 Dose: 25 mg Documented by: Admin: 05/10/21 08:33 Dose: 25 mg Documented by: WILLY Hydromorphone HCl (Hydromorphone 1 Mg/Ml Syringe) 0.5 mg IVPUSH Q1H PRN PRN Reason: Pain (severe 7-10) Lactated Ringer's (Ringers, Lactated) 1,000 mls @ 125 mls/hr IV ASDIRECTED [facility] Admin: 05/10/21 08:41 Dose: 125 mls/hr Documented by: Infusion: 05/10/21 07:54 Dose: 125 mls/hr Documented by: Admin: 05/09/21 23:54 Dose: 125 mls/hr Documented by: Infusion: 05/09/21 14:30 Dose: 125 mls/hr Documented by: Admin: 05/09/21 06:30 Dose: 125 mls/hr Documented by: Infusion: 05/09/21 06:30 Dose: 125 mls/hr Documented by: Admin: 05/08/21 23:22 Dose: 125 mls/hr Documented by: KENDY Piperacillin Sod/Tazobactam (Sod 3.375 gm/ Sodium Chloride) 50 mls @ 100 mls/hr IV Q6H [facility] Last Admin: 05/11/21 08:18 Dose: 100 mls/hr Documented by: Infusion: 05/11/21 03:30 Dose: 100 mls/hr Documented by: Admin: 05/11/21 03:00 Dose: 100 mls/hr Documented by: Infusion: 05/10/21 21:23 Dose: 100 mls/hr Documented by: Admin: 05/10/21 20:53 Dose: 100 mls/hr Documented by: Infusion: 05/10/21 14:47 Dose: 100 mls/hr Documented by: Admin: 05/10/21 14:17 Dose: 100 mls/hr Documented by: Infusion: 05/10/21 09:04 Dose: 100 mls/hr Documented by: Admin: 05/10/21 08:34 Dose: 100 mls/hr Documented by: Infusion: 05/10/21 02:50 Dose: 100 mls/hr Documented by: Admin: 05/10/21 02:20 Dose: 100 mls/hr Documented by: Infusion: 05/09/21 21:25 Dose: 100 mls/hr Documented by: Admin: 05/09/21 20:55 Dose: 100 mls/hr Documented by: Infusion: 05/09/21 14:23 Dose: 100 mls/hr Documented by: Admin: 05/09/21 13:53 Dose: 100 mls/hr Documented by: Infusion: 05/09/21 09:09 Dose: 100 mls/hr Documented by: Admin: 05/09/21 08:39 Dose: 100 mls/hr Documented by: Infusion: 05/09/21 03:32 Dose: 100 mls/hr Documented by: Admin: 05/09/21 03:02 Dose: 100 mls/hr Documented by: Infusion: 05/08/21 21:46 Dose: 100 mls/hr Documented by: Admin: 05/08/21 21:16 Dose: 100 mls/hr Documented by: JORGE LUIS Lactated Ringer's (Ringers, Lactated) 500 mls @ 500 mls/hr IV ASDIRECTED [facility] Last Admin: 05/09/21 08:40 Dose: 500 mls/hr Documented by: DAVID Acetaminophen 1,000 mg/ Premix 100 mls @ 400 mls/hr IV ONETIME PRN PRN Reason: PAIN Ketorolac Tromethamine (Ketorolac 15 Mg/Ml Sdv) 15 mg IVPUSH Q6H [facility] Stop: 05/14/21 23:00 Last Admin: 05/11/21 06:34 Dose: 15 mg Documented by: Admin: 05/10/21 23:53 Dose: 15 mg Documented by: Admin: 05/10/21 17:08 Dose: 15 mg Documented by: Admin: 05/10/21 11:15 Dose: 15 mg Documented by: Admin: 05/10/21 05:53 Dose: 15 mg Documented by: Admin: 05/09/21 23:55 Dose: 15 mg Documented by: Admin: 05/09/21 19:04 Dose: 15 mg Documented by: DAVID Lisinopril (Lisinopril 10 Mg Tab) 10 mg PO DAILY [facility] Last Admin: 05/11/21 08:18 Dose: 10 mg Documented by: Admin: 05/10/21 08:33 Dose: Not Given Documented by: WILLY Multivitamins/Minerals/Vitamin C (Multivitamin Tab) 1 tab PO BEDTIME [facility] Last Admin: 05/10/21 21:20 Dose: 1 tab Documented by: MALLORY Ondansetron HCl (Ondansetron 4 Mg/2 Ml Sdv) 4 mg IVPUSH Q6H PRN PRN Reason: Nausea/Vomiting Oxycodone/Acetaminophen (Acetaminophen/Oxycodone 325-5 Mg Tab) 2 tab PO Q4H PRN PRN Reason: Pain (severe 7-10) Pantoprazole Sodium (Pantoprazole 40 Mg Tab.Cr) 40 mg PO BEDTIME [facility] Last Admin: 05/10/21 21:20 Dose: 40 mg Documented by: MALLORY Bictegrav/Emtricit/Tenofantonio Ala [ Biktarvy 50-200-25 Mg Tab 1 each PO Q24H [facility] Last Admin: 05/10/21 18:23 Dose: 1 each Documented by: Admin: 05/09/21 18:54 Dose: 1 each Documented by: DAVID Dapsone 100 Mg Tab 1 each PO DAILY [facility] Last Admin: 05/11/21 08:19 Dose: 1 each Documented by: Admin: 05/10/21 08:42 Dose: 1 each Documented by: WILLY Scopolamine (Scopolamine 1.5 Mg Transdermal Patch) 1.5 mg TRDERM Q72H [facility] Last Admin: 05/09/21 19:13 Dose: 1.5 mg Documented by: DAVID Sodium Chloride (Sodium Chloride 0.9% 10 Ml Syringe) 10 ml FLUSH ASDIRECTED PRN PRN Reason: Keep Vein Open Sodium Chloride (Sodium Chloride 0.9% 2.5 Ml Syringe) 2.5 ml FLUSH ASDIRECTED PRN PRN Reason: Keep Vein Open Sodium Chloride (Sodium Chloride 0.9% 10 Ml Sdv) 10 ml IV ASDIRECTED PRN PRN Reason: IV Use - Assessment Assessment (Free Text/Narrative):: Patient continues to do well. VSS. He denies pain. Tolerating clear liquids and would like more to eat. No BM. States he is passing gas. On-Q unclamped. CAMERON drainage 35ml/24h, still bile tinged. - Plan Plan (Free Text/Narrative):: Increase to low fat diet. On-Q unclamped. Will leave CAMERON drain today. Dressings removed and will leave open to air.
[2021-05-11] MEDS: Heparin Sodium 5,000 Units/ML Vial SUBCUT SCH ×2 (11:07→23:44)
--- NOTE | 2021-05-11 12:20 | PCM.PN ---
- General Info Date of Service: 05/11/21 - Patient Data Vitals - Most Recent: Last Vital Signs Temp 37.0 C 05/11/21 11:00 Pulse 80 05/11/21 11:00 Resp 16 05/11/21 11:00 BP 106/67 05/11/21 11:00 Pulse Ox 93 L 05/11/21 11:00 Weight - Most Recent: 77.474 kg I&O - Last 24 Hours: Intake & Output 05/10/21 05/11/21 05/11/21 22:59 06:59 14:59 Intake Total 550 Output Total 35 Balance 515 Lab Results Last 24 Hours: Laboratory Results - last 24 hr 05/11/21 05/11/21 Range/Units 05:46 05:46 WBC 4.29 (4.0-11.0) K/uL RBC 2.98 L (4.50-5.90) M/uL Hgb 9.4 L (13.0-17.0) g/dL Hct 28.1 L (38.0-50.0) % MCV 94.3 (80.0-98.0) fL MCH 31.5 (27.0-32.0) pg MCHC 33.5 (31.0-37.0) g/dL RDW Std Deviation 47.4 (28.0-62.0) fl RDW Coeff of Moi 14 (11.0-15.0) % Plt Count 202 (150-400) K/uL MPV 10.30 (7.40-12.00) fL Nucleated RBC % 0.0 /100WBC Nucleated RBCs # 0 K/uL Sodium 140 (136-148) mmol/L Potassium 3.5 (3.5-5.1) mmol/L Chloride 107 (98-107) mmol/L Carbon Dioxide 28.9 (21.0-32.0) mmol/L BUN 20 H (7.0-18.0) mg/dL Creatinine 1.6 H (0.8-1.3) mg/dL Est Cr Clr Drug Dosing 48.48 mL/min Estimated GFR (MDRD) 44.2 ml/min Glucose 103 (74-106) mg/dL Calcium 7.8 L (8.5-10.1) mg/dL Total Bilirubin 1.1 H (0.2-1.0) mg/dL AST 52 H (15-37) IU/L ALT 62 (14-63) IU/L Alkaline Phosphatase 79 (46-116) U/L Total Protein 5.9 L (6.4-8.2) g/dL Albumin 2.4 L (3.4-5.0) g/dL Globulin 3.5 (2.6-4.0) g/dL Albumin/Globulin Ratio 0.7 L (0.9-1.6) Umair Results Last 24 Hours: Microbiology 05/09/21 15:40 Gram Stain - Final Bile Med Orders - Current: Current Medications Cyclobenzaprine HCl (Cyclobenzaprine 5 Mg Tab) 5 mg PO TID [facility] Last Admin: 05/11/21 06:34 Dose: 5 mg Documented by: Diphenhydramine HCl (Diphenhydramine 50 Mg/Ml Sdv) 25 mg IVPUSH Q4H PRN PRN Reason: Itching Fluconazole (Fluconazole 100 Mg Tab) 400 mg PO DAILY@1700 [facility] Last Admin: 05/10/21 17:08 Dose: 400 mg Documented by: Heparin Sodium (Porcine) (Heparin Sodium 5,000 Units/Ml Vial) 5,000 units SUBCUT Q12H [facility] Last Admin: 05/11/21 11:07 Dose: 5,000 units Documented by: Hydrochlorothiazide (Hydrochlorothiazide 25 Mg Tab) 25 mg PO DAILY [facility] Last Admin: 05/11/21 08:18 Dose: 25 mg Documented by: Hydromorphone HCl (Hydromorphone 1 Mg/Ml Syringe) 0.5 mg IVPUSH Q1H PRN PRN Reason: Pain (severe 7-10) Lactated Ringer's (Ringers, Lactated) 1,000 mls @ 125 mls/hr IV ASDIRECTED [facility] Last Admin: 05/10/21 08:41 Dose: 125 mls/hr Documented by: Piperacillin Sod/Tazobactam (Sod 3.375 gm/ Sodium Chloride) 50 mls @ 100 mls/hr IV Q6H [facility] Last Admin: 05/11/21 08:18 Dose: 100 mls/hr Documented by: Lactated Ringer's (Ringers, Lactated) 500 mls @ 500 mls/hr IV ASDIRECTED [facility] Last Admin: 05/09/21 08:40 Dose: 500 mls/hr Documented by: Acetaminophen 1,000 mg/ Premix 100 mls @ 400 mls/hr IV ONETIME PRN PRN Reason: PAIN Ketorolac Tromethamine (Ketorolac 15 Mg/Ml Sdv) 15 mg IVPUSH Q6H [facility] Stop: 05/14/21 23:00 Last Admin: 05/11/21 11:07 Dose: 15 mg Documented by: Lisinopril (Lisinopril 10 Mg Tab) 10 mg PO DAILY [facility] Last Admin: 05/11/21 08:18 Dose: 10 mg Documented by: Multivitamins/Minerals/Vitamin C (Multivitamin Tab) 1 tab PO BEDTIME [facility] Last Admin: 05/10/21 21:20 Dose: 1 tab Documented by: Ondansetron HCl (Ondansetron 4 Mg/2 Ml Sdv) 4 mg IVPUSH Q6H PRN PRN Reason: Nausea/Vomiting Oxycodone/Acetaminophen (Acetaminophen/Oxycodone 325-5 Mg Tab) 2 tab PO Q4H PRN PRN Reason: Pain (severe 7-10) Pantoprazole Sodium (Pantoprazole 40 Mg Tab.Cr) 40 mg PO BEDTIME [facility] Last Admin: 05/10/21 21:20 Dose: 40 mg Documented by: Bictegrav/Emtricit/Tenofov Ala [ Biktarvy 50-200-25 Mg Tab 1 each PO Q24H [facility] Last Admin: 05/10/21 18:23 Dose: 1 each Documented by: Dapsone 100 Mg Tab 1 each PO DAILY [facility] Last Admin: 05/11/21 08:19 Dose: 1 each Documented by: Scopolamine (Scopolamine 1.5 Mg Transdermal Patch) 1.5 mg TRDERM Q72H [facility] Last Admin: 05/09/21 19:13 Dose: 1.5 mg Documented by: Sodium Chloride (Sodium Chloride 0.9% 10 Ml Syringe) 10 ml FLUSH ASDIRECTED PRN PRN Reason: Keep Vein Open Sodium Chloride (Sodium Chloride 0.9% 2.5 Ml Syringe) 2.5 ml FLUSH ASDIRECTED PRN PRN Reason: Keep Vein Open Sodium Chloride (Sodium Chloride 0.9% 10 Ml Sdv) 10 ml IV ASDIRECTED PRN PRN Reason: IV Use Discontinued Medications Hydrocodone Bitart/Acetaminophen (Acetaminophen/Hydrocodone 325-5 Mg Tab) 2 tab PO Q4H PRN PRN Reason: Pain (moderate 4-6) Bupivacaine HCl (Bupivacaine 0.5% 30 Ml Sdv) Confirm Administered Dose 30 ml .ROUTE .STK-MED ONE Stop: 05/09/21 14:13 Bupivacaine HCl (Bupivacaine 0.5% 30 Ml Sdv) Confirm Administered Dose 30 ml .ROUTE .STK-MED ONE Stop: 05/09/21 15:32 Bupivacaine HCl (Bupivacaine 0.5% 30 Ml Sdv) Confirm Administered Dose 90 ml .ROUTE .STK-MED ONE Stop: 05/09/21 15:33 Cefazolin Sodium (Cefazolin 1 Gm Vial) Confirm Administered Dose 1 gm .ROUTE .STK-MED ONE Stop: 05/09/21 14:14 Cefazolin Sodium (Cefazolin 1 Gm Vial) Confirm Administered Dose 2 gm .ROUTE .STK-MED ONE Stop: 05/09/21 15:40 Dapsone (Dapsone 100 Mg Tab) 100 mg PO DAILY [facility] Desflurane (Desflurane 240 Ml Bottle) Confirm Administered Dose 240 ml .ROUTE .STK-MED ONE Stop: 05/09/21 14:21 Dexamethasone (Dexamethasone 4 Mg/Ml 5 Ml Mdv) Confirm Administered Dose 20 mg .ROUTE .STK-MED ONE Stop: 05/09/21 16:48 Fentanyl (Fentanyl 250 Mcg/5 Ml Sdv) Confirm Administered Dose 250 mcg .ROUTE .STK-MED ONE Stop: 05/09/21 14:03 Fentanyl (Fentanyl 250 Mcg/5 Ml Sdv) Confirm Administered Dose 250 mcg .ROUTE .STK-MED ONE Stop: 05/09/21 15:06 Fentanyl (Fentanyl 100 Mcg/2 Ml Sdv) Confirm Administered Dose 100 mcg .ROUTE .STK-MED ONE Stop: 05/09/21 15:41 Fentanyl (Fentanyl 100 Mcg/2 Ml Sdv) Confirm Administered Dose 100 mcg .ROUTE .STK-MED ONE Stop: 05/09/21 16:34 Hydromorphone HCl (Hydromorphone 2 Mg/Ml Syringe) 0.5 mg IVPUSH Q1H PRN PRN Reason: Pain (severe 7-10) Hydromorphone HCl (Hydromorphone 1 Mg/Ml Syringe) 0.5 mg IVPUSH ONETIME PRN PRN Reason: Abdominal Pain Last Admin: 05/09/21 18:04 Dose: 0.5 mg Documented by: Sodium Chloride (Normal Saline) 1,000 mls @ 999 mls/hr IV STAT ONE Stop: 05/08/21 21:08 Last Admin: 05/08/21 21:06 Dose: 999 mls/hr Documented by: Acetaminophen (Ofirmev 1000 Mg/100 Ml) Confirm Administered Dose 100 mls @ as directed .ROUTE .STK-MED ONE Stop: 05/09/21 16:51 Iopamidol (Iopamidol 755 Mg/Ml 500 Ml Multipack Bottle) 85 ml IVPUSH ONETIME STA Stop: 05/08/21 17:03 Last Admin: 05/08/21 17:13 Dose: 85 ml Documented by: Ketorolac Tromethamine (Ketorolac 30 Mg/Ml Sdv) Confirm Administered Dose 30 mg .ROUTE .STK-MED ONE Stop: 05/09/21 16:50 Miscellaneous Medication (Phenylephrine Hcl In 0.9% Nacl 1 Mg/10 Ml Syringe) Confirm Administered Dose 1 mg .ROUTE .STK-MED ONE Stop: 05/09/21 16:00 Morphine Sulfate (Morphine 4 Mg/Ml Syringe) 4 mg IVPUSH ONETIME ONE Stop: 05/08/21 20:09 Last Admin: 05/08/21 21:12 Dose: 4 mg Documented by: Octyl Cyanoacrylate (Octyl 2-Cyanoacrylate 1 Tube) Confirm Administered Dose 1 applic .ROUTE .STK-MED ONE Stop: 05/09/21 14:13 Ondansetron HCl (Ondansetron 4 Mg/2 Ml Sdv) 4 mg IVPUSH ONETIME ONE Stop: 05/08/21 20:09 Last Admin: 05/08/21 21:09 Dose: 4 mg Documented by: Ondansetron HCl (Ondansetron 4 Mg/2 Ml Sdv) Confirm Administered Dose 4 mg .ROUTE .STK-MED ONE Stop: 05/09/21 16:48 Propofol (Propofol 200 Mg/20 Ml Sdv) Confirm Administered Dose 200 mg .ROUTE .STK-MED ONE Stop: 05/09/21 14:02 Rocuronium [place] (Rocuronium [place] 50 Mg/5 Ml Syringe) Confirm Administered Dose 50 mg .ROUTE .STK-MED ONE Stop: 05/09/21 15:40 Rocuronium [place] (Rocuronium [place] 50 Mg/5 Ml Syringe) Confirm Administered Dose 50 mg .ROUTE .STK-MED ONE Stop: 05/09/21 15:48 - Exam Urinary Catheter Total Time: 0Days 8Hours General: Alert, Oriented Neck: Supple Lungs: Clear to Auscultation, Normal Respiratory Effort Cardiovascular: Regular Rate, Regular Rhythm GI/Abdominal Exam: Normal Bowel Sounds, Soft, Non-Tender, Other (drain in place) Extremities: Non-Tender, No Pedal Edema Skin: Warm, Dry, Intact Neurological: No New Focal Deficit - Patient Data Lab Results Last 24 hrs: Laboratory Results - last 24 hr 05/11/21 05/11/21 Range/Units 05:46 05:46 WBC 4.29 (4.0-11.0) K/uL RBC 2.98 L (4.50-5.90) M/uL Hgb 9.4 L (13.0-17.0) g/dL Hct 28.1 L (38.0-50.0) % MCV 94.3 (80.0-98.0) fL MCH 31.5 (27.0-32.0) pg MCHC 33.5 (31.0-37.0) g/dL RDW Std Deviation 47.4 (28.0-62.0) fl RDW Coeff of Moi 14 (11.0-15.0) % Plt Count 202 (150-400) K/uL MPV 10.30 (7.40-12.00) fL Nucleated RBC % 0.0 /100WBC Nucleated RBCs # 0 K/uL Sodium 140 (136-148) mmol/L Potassium 3.5 (3.5-5.1) mmol/L Chloride 107 (98-107) mmol/L Carbon Dioxide 28.9 (21.0-32.0) mmol/L BUN 20 H (7.0-18.0) mg/dL Creatinine 1.6 H (0.8-1.3) mg/dL Est Cr Clr Drug Dosing 48.48 mL/min Estimated GFR (MDRD) 44.2 ml/min Glucose 103 (74-106) mg/dL Calcium 7.8 L (8.5-10.1) mg/dL Total Bilirubin 1.1 H (0.2-1.0) mg/dL AST 52 H (15-37) IU/L ALT 62 (14-63) IU/L Alkaline Phosphatase 79 (46-116) U/L Total Protein 5.9 L (6.4-8.2) g/dL Albumin 2.4 L (3.4-5.0) g/dL Globulin 3.5 (2.6-4.0) g/dL Albumin/Globulin Ratio 0.7 L (0.9-1.6) Result Diagrams: 05/11/21 05:46 05/11/21 05:46 Umair Results Last 24 hrs: Microbiology 05/09/21 15:40 Gram Stain - Final Bile Sepsis Event Note - Evaluation Sepsis Screening Result: No Definite Risk - Focused Exam Vital Signs: Vital Signs Temp Pulse Resp BP BP Pulse Ox 05/11/21 11:00 37.0 C 80 16 106/67 93 L 05/11/21 08:18 110/70 05/11/21 07:00 36.6 C 58 L 16 110/70 97 05/11/21 03:01 36.2 C 64 16 110/66 94 L - Problem List Review Problem List Initiated/Reviewed/Updated: Yes - Plan Plan:: POD#2 continue viktary, and diflucan. Encourage incentive spirometry. heparin for DVT prophylaxis
[2021-05-11] MEDS: [UNRECOGNIZED DRUG - OTHER] PO SCH (17:14)
[2021-05-11] MEDS: Fluconazole 100 MG Tab PO SCH (17:14)
[2021-05-11] MEDS: Multivitamin Tab PO SCH (20:09)
[2021-05-11] MEDS: Pantoprazole 40 MG Tab.CR PO SCH (20:09)
[2021-05-12] MEDS: Piperacillin/Tazobactam 3.375 GM in Sodium Chloride 0.9% 50 ML IV SCH ×4 (02:28→21:07)
[2021-05-12] MEDS: Ketorolac 15 MG/ML SDV IVPUSH SCH (06:00)
[2021-05-12] MEDS: Cyclobenzaprine 5 MG Tab PO SCH (06:00)
[2021-05-12 07:01] LABS: CARBON DIOXIDE,CO2 27.3 mmol/L (21.0-32.0); POTASSIUM,K 3.8 mmol/L (3.5-5.1)
[2021-05-12] MEDS ORDERED: Cyclobenzaprine 5 MG Tab PO PRN (07:24)
[2021-05-12] MEDS: Hydrochlorothiazide 25 MG Tab PO SCH (09:04)
[2021-05-12] MEDS: DAPSONE 100 MG PO SCH (09:04)
[2021-05-12] MEDS: Lisinopril 10 MG Tab PO SCH (09:04)
[2021-05-12] MEDS: Heparin Sodium 5,000 Units/ML Vial SUBCUT SCH (12:00)
--- NOTE | 2021-05-12 15:01 | PCM.PN ---
<Ren Dumas - Last Filed: 05/12/21 15:33> - General Info Date of Service: 05/12/21 Subjective Update: Patient denies fever, chills, nausea, vomiting, abdominal pain, constipation. Patient has regular bowel movements, tolerating regular diet. - Review of Systems General: Denies: Fever, Chills Pulmonary: Denies: Shortness of Breath, Cough Cardiovascular: Denies: Chest Pain Gastrointestinal: Denies: Abdominal Pain, Constipation, Decreased Appetite, Nausea, Vomiting Psychiatric: Denies: Confusion - Patient Data Vitals - Most Recent: Last Vital Signs Temp 97.9 F 05/12/21 12:00 Pulse 65 05/12/21 12:00 Resp 16 05/12/21 12:00 BP 124/80 05/12/21 12:00 Pulse Ox 94 L 05/12/21 12:00 Weight - Most Recent: 77.474 kg I&O - Last 24 Hours: Intake & Output 05/11/21 05/12/21 05/12/21 22:59 06:59 14:59 Intake Total 1000 Output Total 45 Balance 955 Lab Results Last 24 Hours: Laboratory Results - last 24 hr 05/12/21 05/12/21 Range/Units 06:17 06:17 WBC 3.40 L (4.0-11.0) K/uL RBC 3.00 L (4.50-5.90) M/uL Hgb 9.5 L (13.0-17.0) g/dL Hct 28.2 L (38.0-50.0) % MCV 94.0 (80.0-98.0) fL MCH 31.7 (27.0-32.0) pg MCHC 33.7 (31.0-37.0) g/dL RDW Std Deviation 47.6 (28.0-62.0) fl RDW Coeff of Moi 14 (11.0-15.0) % Plt Count 210 (150-400) K/uL MPV 9.90 (7.40-12.00) fL Nucleated RBC % 0.0 /100WBC Nucleated RBCs # 0 K/uL Sodium 141 (136-148) mmol/L Potassium 3.8 (3.5-5.1) mmol/L Chloride 106 (98-107) mmol/L Carbon Dioxide 27.3 (21.0-32.0) mmol/L BUN 20 H (7.0-18.0) mg/dL Creatinine 1.7 H (0.8-1.3) mg/dL Est Cr Clr Drug Dosing 45.63 mL/min Estimated GFR (MDRD) 41.2 ml/min Glucose 104 (74-106) mg/dL Calcium 7.8 L (8.5-10.1) mg/dL Total Bilirubin 0.8 (0.2-1.0) mg/dL AST 53 H (15-37) IU/L ALT 64 H (14-63) IU/L Alkaline Phosphatase 110 (46-116) U/L Total Protein 6.4 (6.4-8.2) g/dL Albumin 2.5 L (3.4-5.0) g/dL Globulin 3.9 (2.6-4.0) g/dL Albumin/Globulin Ratio 0.6 L (0.9-1.6) Umair Results Last 24 Hours: Microbiology 05/09/21 15:40 Aerobic Culture - Preliminary Bile Gram Stain - Final Anaerobic Culture - Preliminary Med Orders - Current: Current Medications Cyclobenzaprine HCl (Cyclobenzaprine 5 Mg Tab) 5 mg PO TID PRN PRN Reason: Muscle Spasm - Painful Diphenhydramine HCl (Diphenhydramine 50 Mg/Ml Sdv) 25 mg IVPUSH Q4H PRN PRN Reason: Itching Fluconazole (Fluconazole 100 Mg Tab) 400 mg PO DAILY@1700 [facility] Last Admin: 05/11/21 17:14 Dose: 400 mg Documented by: Heparin Sodium (Porcine) (Heparin Sodium 5,000 Units/Ml Vial) 5,000 units SUBCUT Q12H [facility] Last Admin: 05/12/21 12:00 Dose: 5,000 units Documented by: Hydrochlorothiazide (Hydrochlorothiazide 25 Mg Tab) 25 mg PO DAILY [facility] Last Admin: 05/12/21 09:04 Dose: 25 mg Documented by: Hydromorphone HCl (Hydromorphone 1 Mg/Ml Syringe) 0.5 mg IVPUSH Q1H PRN PRN Reason: Pain (severe 7-10) Piperacillin Sod/Tazobactam (Sod 3.375 gm/ Sodium Chloride) 50 mls @ 100 mls/hr IV Q6H [facility] Last Admin: 05/12/21 14:21 Dose: 100 mls/hr Documented by: Acetaminophen 1,000 mg/ Premix 100 mls @ 400 mls/hr IV ONETIME PRN PRN Reason: PAIN Lisinopril (Lisinopril 10 Mg Tab) 10 mg PO DAILY [facility] Last Admin: 05/12/21 09:04 Dose: 10 mg Documented by: Multivitamins/Minerals/Vitamin C (Multivitamin Tab) 1 tab PO BEDTIME [facility] Last Admin: 05/11/21 20:09 Dose: 1 tab Documented by: Ondansetron HCl (Ondansetron 4 Mg/2 Ml Sdv) 4 mg IVPUSH Q6H PRN PRN Reason: Nausea/Vomiting Oxycodone/Acetaminophen (Acetaminophen/Oxycodone 325-5 Mg Tab) 2 tab PO Q4H PRN PRN Reason: Pain (severe 7-10) Pantoprazole Sodium (Pantoprazole 40 Mg Tab.Cr) 40 mg PO BEDTIME [facility] Last Admin: 05/11/21 20:09 Dose: 40 mg Documented by: Bictegrav/Emtricit/Tenofov Ala [ Biktarvy 50-200-25 Mg Tab 1 each PO Q24H [facility] Last Admin: 05/11/21 17:14 Dose: 1 each Documented by: Dapsone 100 Mg Tab 1 each PO DAILY [facility] Last Admin: 05/12/21 09:04 Dose: 1 each Documented by: Scopolamine (Scopolamine 1.5 Mg Transdermal Patch) 1.5 mg TRDERM Q72H [facility] Last Admin: 05/09/21 19:13 Dose: 1.5 mg Documented by: Sodium Chloride (Sodium Chloride 0.9% 10 Ml Syringe) 10 ml FLUSH ASDIRECTED PRN PRN Reason: Keep Vein Open Sodium Chloride (Sodium Chloride 0.9% 2.5 Ml Syringe) 2.5 ml FLUSH ASDIRECTED PRN PRN Reason: Keep Vein Open Sodium Chloride (Sodium Chloride 0.9% 10 Ml Sdv) 10 ml IV ASDIRECTED PRN PRN Reason: IV Use Discontinued Medications Hydrocodone Bitart/Acetaminophen (Acetaminophen/Hydrocodone 325-5 Mg Tab) 2 tab PO Q4H PRN PRN Reason: Pain (moderate 4-6) Bupivacaine HCl (Bupivacaine 0.5% 30 Ml Sdv) Confirm Administered Dose 30 ml .ROUTE .ST-MED ONE Stop: 05/09/21 14:13 Bupivacaine HCl (Bupivacaine 0.5% 30 Ml Sdv) Confirm Administered Dose 30 ml .ROUTE .STK-MED ONE Stop: 05/09/21 15:32 Bupivacaine HCl (Bupivacaine 0.5% 30 Ml Sdv) Confirm Administered Dose 90 ml .[place] .STK-MED ONE Stop: 05/09/21 15:33 Cefazolin Sodium (Cefazolin 1 Gm Vial) Confirm Administered Dose 1 gm .ROUTE .STK-MED ONE Stop: 05/09/21 14:14 Cefazolin Sodium (Cefazolin 1 Gm Vial) Confirm Administered Dose 2 gm .ROUTE .STK-MED ONE Stop: 05/09/21 15:40 Cyclobenzaprine HCl (Cyclobenzaprine 5 Mg Tab) 5 mg PO TID [facility] Last Admin: 05/12/21 06:00 Dose: 5 mg Documented by: Dapsone (Dapsone 100 Mg Tab) 100 mg PO DAILY [facility] Desflurane (Desflurane 240 Ml Bottle) Confirm Administered Dose 240 ml .ROUTE .STK-MED ONE Stop: 05/09/21 14:21 Dexamethasone (Dexamethasone 4 Mg/Ml 5 Ml Mdv) Confirm Administered Dose 20 mg .ROUTE .STK-MED ONE Stop: 05/09/21 16:48 Fentanyl (Fentanyl 250 Mcg/5 Ml Sdv) Confirm Administered Dose 250 mcg .ROUTE .STK-MED ONE Stop: 05/09/21 14:03 Fentanyl (Fentanyl 250 Mcg/5 Ml Sdv) Confirm Administered Dose 250 mcg .ROUTE .STK-MED ONE Stop: 05/09/21 15:06 Fentanyl (Fentanyl 100 Mcg/2 Ml Sdv) Confirm Administered Dose 100 mcg .ROUTE .STK-MED ONE Stop: 05/09/21 15:41 Fentanyl (Fentanyl 100 Mcg/2 Ml Sdv) Confirm Administered Dose 100 mcg .ROUTE .STK-MED ONE Stop: 05/09/21 16:34 Hydromorphone HCl (Hydromorphone 2 Mg/Ml Syringe) 0.5 mg IVPUSH Q1H PRN PRN Reason: Pain (severe 7-10) Hydromorphone HCl (Hydromorphone 1 Mg/Ml Syringe) 0.5 mg IVPUSH ONETIME PRN PRN Reason: Abdominal Pain Last Admin: 05/09/21 18:04 Dose: 0.5 mg Documented by: Sodium Chloride (Normal Saline) 1,000 mls @ 999 mls/hr IV STAT ONE Stop: 05/08/21 21:08 Last Admin: 05/08/21 21:06 Dose: 999 mls/hr Documented by: Lactated Ringer's (Ringers, Lactated) 1,000 mls @ 125 mls/hr IV ASDIRECTED [facility] Last Admin: 05/10/21 08:41 Dose: 125 mls/hr Documented by: Lactated Ringer's (Ringers, Lactated) 500 mls @ 500 mls/hr IV ASDIRECTED [facility] Last Admin: 05/09/21 08:40 Dose: 500 mls/hr Documented by: Acetaminophen (Ofirmev 1000 Mg/100 Ml) Confirm Administered Dose 100 mls @ as directed .ROUTE .STK-MED ONE Stop: 05/09/21 16:51 Iopamidol (Iopamidol 755 Mg/Ml 500 Ml Multipack Bottle) 85 ml IVPUSH ONETIME STA Stop: 05/08/21 17:03 Last Admin: 05/08/21 17:13 Dose: 85 ml Documented by: Ketorolac Tromethamine (Ketorolac 30 Mg/Ml Sdv) Confirm Administered Dose 30 mg .ROUTE .STK-MED ONE Stop: 05/09/21 16:50 Ketorolac Tromethamine (Ketorolac 15 Mg/Ml Sdv) 15 mg IVPUSH Q6H [facility] Stop: 05/14/21 23:00 Last Admin: 05/12/21 06:00 Dose: 15 mg Documented by: Miscellaneous Medication (Phenylephrine Hcl In 0.9% Nacl 1 Mg/10 Ml Syringe) Confirm Administered Dose 1 mg .ROUTE .STK-MED ONE Stop: 05/09/21 16:00 Morphine Sulfate (Morphine 4 Mg/Ml Syringe) 4 mg IVPUSH ONETIME ONE Stop: 05/08/21 20:09 Last Admin: 05/08/21 21:12 Dose: 4 mg Documented by: Octyl Cyanoacrylate (Octyl 2-Cyanoacrylate 1 Tube) Confirm Administered Dose 1 applic .ROUTE .STK-MED ONE Stop: 05/09/21 14:13 Ondansetron HCl (Ondansetron 4 Mg/2 Ml Sdv) 4 mg IVPUSH ONETIME ONE Stop: 05/08/21 20:09 Last Admin: 05/08/21 21:09 Dose: 4 mg Documented by: Ondansetron HCl (Ondansetron 4 Mg/2 Ml Sdv) Confirm Administered Dose 4 mg .ROUTE .STK-MED ONE Stop: 05/09/21 16:48 Propofol (Propofol 200 Mg/20 Ml Sdv) Confirm Administered Dose 200 mg .ROUTE .STK-MED ONE Stop: 05/09/21 14:02 Rocuronium [place] (Rocuronium [place] 50 Mg/5 Ml Syringe) Confirm Administered Dose 50 mg .ROUTE .STK-MED ONE Stop: 05/09/21 15:40 Rocuronium [place] (Rocuronium [place] 50 Mg/5 Ml Syringe) Confirm Administered Dose 50 mg .ROUTE .STK-MED ONE Stop: 05/09/21 15:48 - Exam Urinary Catheter Total Time: 0Days 8Hours General: Alert, Oriented Lungs: Clear to Auscultation, Normal Respiratory Effort Cardiovascular: Regular Rate, Regular Rhythm GI/Abdominal Exam: Normal Bowel Sounds, Soft, Non-Tender Psy/Mental Status: Alert - Patient Data Lab Results Last 24 hrs: Laboratory Results - last 24 hr 05/12/21 05/12/21 Range/Units 06:17 06:17 WBC 3.40 L (4.0-11.0) K/uL RBC 3.00 L (4.50-5.90) M/uL Hgb 9.5 L (13.0-17.0) g/dL Hct 28.2 L (38.0-50.0) % MCV 94.0 (80.0-98.0) fL MCH 31.7 (27.0-32.0) pg MCHC 33.7 (31.0-37.0) g/dL RDW Std Deviation 47.6 (28.0-62.0) fl RDW Coeff of Moi 14 (11.0-15.0) % Plt Count 210 (150-400) K/uL MPV 9.90 (7.40-12.00) fL Nucleated RBC % 0.0 /100WBC Nucleated RBCs # 0 K/uL Sodium 141 (136-148) mmol/L Potassium 3.8 (3.5-5.1) mmol/L Chloride 106 (98-107) mmol/L Carbon Dioxide 27.3 (21.0-32.0) mmol/L BUN 20 H (7.0-18.0) mg/dL Creatinine 1.7 H (0.8-1.3) mg/dL Est Cr Clr Drug Dosing 45.63 mL/min Estimated GFR (MDRD) 41.2 ml/min Glucose 104 (74-106) mg/dL Calcium 7.8 L (8.5-10.1) mg/dL Total Bilirubin 0.8 (0.2-1.0) mg/dL AST 53 H (15-37) IU/L ALT 64 H (14-63) IU/L Alkaline Phosphatase 110 (46-116) U/L Total Protein 6.4 (6.4-8.2) g/dL Albumin 2.5 L (3.4-5.0) g/dL Globulin 3.9 (2.6-4.0) g/dL Albumin/Globulin Ratio 0.6 L (0.9-1.6) Result Diagrams: 05/12/21 06:17 05/12/21 06:17 Umair Results Last 24 hrs: Microbiology 05/09/21 15:40 Aerobic Culture - Preliminary Bile Gram Stain - Final Anaerobic Culture - Preliminary Sepsis Event Note - Evaluation Sepsis Screening Result: No Definite Risk - Focused Exam Vital Signs: Vital Signs Temp Pulse Resp BP BP Pulse Ox 05/12/21 12:00 97.9 F 65 16 124/80 94 L 05/12/21 09:04 118/80 05/12/21 08:00 97.4 F 51 L 16 118/80 94 L 05/12/21 04:02 97.6 F 62 15 126/71 94 L - Problem List & Annotations (1) Acute cholecystitis SNOMED Code(s): 12502358 Code(s): K81.0 - ACUTE CHOLECYSTITIS Status: Acute (2) HIV (human immunodeficiency virus infection) SNOMED Code(s): 27821379 Code(s): B20 - HUMAN IMMUNODEFICIENCY VIRUS [HIV] DISEASE Status: Acute Qualifiers: HIV symptom status: asymptomatic, with no history of HIV-related illness Qualified Code(s): Z21 - Asymptomatic human immunodeficiency virus [HIV] infection status (3) HTN (hypertension) SNOMED Code(s): 44429369 Code(s): I10 - ESSENTIAL (PRIMARY) HYPERTENSION Status: Acute Qualifiers: Hypertension type: primary hypertension Qualified Code(s): I10 - Essential (primary) hypertension - Problem List Review Problem List Initiated/Reviewed/Updated: Yes - My Orders Last 24 Hours: My Active Orders 05/13/21 05:11 CBC WITH AUTO DIFF [HEME] AM CMP [COMPREHENSIVE METABOLIC PN,CMP] [CHEM] AM - Plan Plan:: Postoperative day #3, cholecystectomy- Resume viktary, and Diflucan. Encourage incentive spirometry. heparin for DVT prophylaxis Patient is currently medically stable, will continue assistance with medications as needed. Medicine team to sign off on further treatment. Will defer further treatment to surgery team. <Zach Carvalho - Last Filed: 05/13/21 15:19> - Patient Data Vitals - Most Recent: Last Vital Signs Temp 36.4 C 05/13/21 07:46 Pulse 66 05/13/21 07:46 Resp 22 H 05/13/21 07:46 BP 133/79 05/13/21 09:15 Pulse Ox 94 L 05/13/21 07:46 I&O - Last 24 Hours: Intake & Output 05/13/21 05/13/21 05/13/21 06:59 14:59 22:59 Intake Total 950 700 Output Total 0 Balance 950 700 Lab Results Last 24 Hours: Laboratory Results - last 24 hr 05/13/21 05/13/21 Range/Units 05:15 05:15 WBC 3.92 L (4.0-11.0) K/uL RBC 3.15 L (4.50-5.90) M/uL Hgb 9.8 L (13.0-17.0) g/dL Hct 29.6 L (38.0-50.0) % MCV 94.0 (80.0-98.0) fL MCH 31.1 (27.0-32.0) pg MCHC 33.1 (31.0-37.0) g/dL RDW Std Deviation 46.8 (28.0-62.0) fl RDW Coeff of Moi 14 (11.0-15.0) % Plt Count 242 (150-400) K/uL MPV 10.00 (7.40-12.00) fL Neut % (Auto) 55.2 (48.0-80.0) % Lymph % (Auto) 33.7 (16.0-40.0) % [place] % (Auto) 8.2 (0.0-15.0) % Eos % (Auto) 2.6 (0.0-7.0) % Baso % (Auto) 0.3 (0.0-1.5) % Neut # (Auto) 2.2 (1.4-5.7) K/uL Lymph # (Auto) 1.3 (0.6-2.4) K/uL [place] # (Auto) 0.3 (0.0-0.8) K/uL Eos # (Auto) 0.1 (0.0-0.7) K/uL Baso # (Auto) 0.0 (0.0-0.1) K/uL Nucleated RBC % 0.0 /100WBC Nucleated RBCs # 0 K/uL Sodium 140 (136-148) mmol/L Potassium 4.1 (3.5-5.1) mmol/L Chloride 105 (98-107) mmol/L Carbon Dioxide 27.3 (21.0-32.0) mmol/L BUN 18 (7.0-18.0) mg/dL Creatinine 1.6 H (0.8-1.3) mg/dL Est Cr Clr Drug Dosing 48.48 mL/min Estimated GFR (MDRD) 44.2 ml/min Glucose 108 H (74-106) mg/dL Calcium 8.6 (8.5-10.1) mg/dL Total Bilirubin 0.8 (0.2-1.0) mg/dL AST 57 H (15-37) IU/L ALT 67 H (14-63) IU/L Alkaline Phosphatase 126 H (46-116) U/L Total Protein 6.7 (6.4-8.2) g/dL Albumin 2.6 L (3.4-5.0) g/dL Globulin 4.1 H (2.6-4.0) g/dL Albumin/Globulin Ratio 0.6 L (0.9-1.6) Umair Results Last 24 Hours: Microbiology 05/09/21 15:40 Aerobic Culture - Preliminary Bile Gram Stain - Final Anaerobic Culture - Preliminary Med Orders - Current: Current Medications Discontinued Medications Hydrocodone Bitart/Acetaminophen (Acetaminophen/Hydrocodone 325-5 Mg Tab) 2 tab PO Q4H PRN PRN Reason: Pain (moderate 4-6) Bupivacaine HCl (Bupivacaine 0.5% 30 Ml Sdv) Confirm Administered Dose 30 ml .ROUTE .STK-MED ONE Stop: 05/09/21 14:13 Bupivacaine HCl (Bupivacaine 0.5% 30 Ml Sdv) Confirm Administered Dose 30 ml .ROUTE .STK-MED ONE Stop: 05/09/21 15:32 Bupivacaine HCl (Bupivacaine 0.5% 30 Ml Sdv) Confirm Administered Dose 90 ml .ROUTE .STK-MED ONE Stop: 05/09/21 15:33 Cefazolin Sodium (Cefazolin 1 Gm Vial) Confirm Administered Dose 1 gm .ROUTE .STK-MED ONE Stop: 05/09/21 14:14 Cefazolin Sodium (Cefazolin 1 Gm Vial) Confirm Administered Dose 2 gm .ROUTE .STK-MED ONE Stop: 05/09/21 15:40 Cyclobenzaprine HCl (Cyclobenzaprine 5 Mg Tab) 5 mg PO TID [facility] Last Admin: 05/12/21 06:00 Dose: 5 mg Documented by: Cyclobenzaprine HCl (Cyclobenzaprine 5 Mg Tab) 5 mg PO TID PRN PRN Reason: Muscle Spasm - Painful Dapsone (Dapsone 100 Mg Tab) 100 mg PO DAILY [facility] Desflurane (Desflurane 240 Ml Bottle) Confirm Administered Dose 240 ml .ROUTE .STK-MED ONE Stop: 05/09/21 14:21 Dexamethasone (Dexamethasone 4 Mg/Ml 5 Ml Mdv) Confirm Administered Dose 20 mg .ROUTE .STK-MED ONE Stop: 05/09/21 16:48 Diphenhydramine HCl (Diphenhydramine 50 Mg/Ml Sdv) 25 mg IVPUSH Q4H PRN PRN Reason: Itching Fentanyl (Fentanyl 250 Mcg/5 Ml Sdv) Confirm Administered Dose 250 mcg .ROUTE .STK-MED ONE Stop: 05/09/21 14:03 Fentanyl (Fentanyl 250 Mcg/5 Ml Sdv) Confirm Administered Dose 250 mcg .ROUTE .STK-MED ONE Stop: 05/09/21 15:06 Fentanyl (Fentanyl 100 Mcg/2 Ml Sdv) Confirm Administered Dose 100 mcg .ROUTE .STK-MED ONE Stop: 05/09/21 15:41 Fentanyl (Fentanyl 100 Mcg/2 Ml Sdv) Confirm Administered Dose 100 mcg .ROUTE .STK-MED ONE Stop: 05/09/21 16:34 Fluconazole (Fluconazole 100 Mg Tab) 400 mg PO DAILY@1700 [facility] Last Admin: 05/12/21 17:08 Dose: 400 mg Documented by: Heparin Sodium (Porcine) (Heparin Sodium 5,000 Units/Ml Vial) 5,000 units SUBCUT Q12H [facility] Last Admin: 05/13/21 00:17 Dose: 5,000 units Documented by: Hydrochlorothiazide (Hydrochlorothiazide 25 Mg Tab) 25 mg PO DAILY [facility] Last Admin: 05/13/21 09:15 Dose: 25 mg Documented by: Hydromorphone HCl (Hydromorphone 2 Mg/Ml Syringe) 0.5 mg IVPUSH Q1H PRN PRN Reason: Pain (severe 7-10) Hydromorphone HCl (Hydromorphone 1 Mg/Ml Syringe) 0.5 mg IVPUSH Q1H PRN PRN Reason: Pain (severe 7-10) Hydromorphone HCl (Hydromorphone 1 Mg/Ml Syringe) 0.5 mg IVPUSH ONETIME PRN PRN Reason: Abdominal Pain Last Admin: 05/09/21 18:04 Dose: 0.5 mg Documented by: Sodium Chloride (Normal Saline) 1,000 mls @ 999 mls/hr IV STAT ONE Stop: 05/08/21 21:08 Last Admin: 05/08/21 21:06 Dose: 999 mls/hr Documented by: Lactated Ringer's (Ringers, Lactated) 1,000 mls @ 125 mls/hr IV ASDIRECTED [facility] Last Admin: 05/10/21 08:41 Dose: 125 mls/hr Documented by: Piperacillin Sod/Tazobactam (Sod 3.375 gm/ Sodium Chloride) 50 mls @ 100 mls/hr IV Q6H [facility] Last Admin: 05/13/21 02:51 Dose: 100 mls/hr Documented by: Lactated Ringer's (Ringers, Lactated) 500 mls @ 500 mls/hr IV ASDIRECTED [facility] Last Admin: 05/09/21 08:40 Dose: 500 mls/hr Documented by: Acetaminophen (Ofirmev 1000 Mg/100 Ml) Confirm Administered Dose 100 mls @ as directed .ROUTE .STK-MED ONE Stop: 05/09/21 16:51 Acetaminophen 1,000 mg/ Premix 100 mls @ 400 mls/hr IV ONETIME PRN PRN Reason: PAIN Iopamidol (Iopamidol 755 Mg/Ml 500 Ml Multipack Bottle) 85 ml IVPUSH ONETIME STA Stop: 05/08/21 17:03 Last Admin: 05/08/21 17:13 Dose: 85 ml Documented by: Ketorolac Tromethamine (Ketorolac 30 Mg/Ml Sdv) Confirm Administered Dose 30 mg .ROUTE .STK-MED ONE Stop: 05/09/21 16:50 Ketorolac Tromethamine (Ketorolac 15 Mg/Ml Sdv) 15 mg IVPUSH Q6H [facility] Stop: 05/14/21 23:00 Last Admin: 05/12/21 06:00 Dose: 15 mg Documented by: Levofloxacin (Levofloxacin 750 Mg Tab) 750 mg PO Q48H [facility] Last Admin: 05/13/21 06:37 Dose: 750 mg Documented by: Lisinopril (Lisinopril 10 Mg Tab) 10 mg PO DAILY [facility] Last Admin: 05/13/21 09:15 Dose: 10 mg Documented by: Metronidazole (Metronidazole 250 Mg Tab) 500 mg PO Q8H [facility] Last Admin: 05/13/21 06:37 Dose: 500 mg Documented by: Miscellaneous Medication (Phenylephrine Hcl In 0.9% Nacl 1 Mg/10 Ml Syringe) Confirm Administered Dose 1 mg .ROUTE .STK-MED ONE Stop: 05/09/21 16:00 Morphine Sulfate (Morphine 4 Mg/Ml Syringe) 4 mg IVPUSH ONETIME ONE Stop: 05/08/21 20:09 Last Admin: 05/08/21 21:12 Dose: 4 mg Documented by: Multivitamins/Minerals/Vitamin C (Multivitamin Tab) 1 tab PO BEDTIME [facility] Last Admin: 05/12/21 21:07 Dose: 1 tab Documented by: Octyl Cyanoacrylate (Octyl 2-Cyanoacrylate 1 Tube) Confirm Administered Dose 1 applic .ROUTE .STK-MED ONE Stop: 05/09/21 14:13 Ondansetron HCl (Ondansetron 4 Mg/2 Ml Sdv) 4 mg IVPUSH ONETIME ONE Stop: 05/08/21 20:09 Last Admin: 05/08/21 21:09 Dose: 4 mg Documented by: Ondansetron HCl (Ondansetron 4 Mg/2 Ml Sdv) 4 mg IVPUSH Q6H PRN PRN Reason: Nausea/Vomiting Ondansetron HCl (Ondansetron 4 Mg/2 Ml Sdv) Confirm Administered Dose 4 mg .ROUTE .STK-MED ONE Stop: 05/09/21 16:48 Oxycodone/Acetaminophen (Acetaminophen/Oxycodone 325-5 Mg Tab) 2 tab PO Q4H PRN PRN Reason: Pain (severe 7-10) Pantoprazole Sodium (Pantoprazole 40 Mg Tab.Cr) 40 mg PO BEDTIME [facility] Last Admin: 05/12/21 21:07 Dose: 40 mg Documented by: Bictegrav/Emtricit/Tenofov Ala [ Biktarvy 50-200-25 Mg Tab 1 each PO Q24H [facility] Last Admin: 05/12/21 17:08 Dose: 1 each Documented by: Dapsone 100 Mg Tab 1 each PO DAILY [facility] Last Admin: 05/13/21 09:15 Dose: 1 each Documented by: Propofol (Propofol 200 Mg/20 Ml Sdv) Confirm Administered Dose 200 mg .ROUTE .STK-MED ONE Stop: 05/09/21 14:02 Rocuronium [place] (Rocuronium [place] 50 Mg/5 Ml Syringe) Confirm Administered Dose 50 mg .ROUTE .STK-MED ONE Stop: 05/09/21 15:40 Rocuronium [place] (Rocuronium [place] 50 Mg/5 Ml Syringe) Confirm Administered Dose 50 mg .ROUTE .STK-MED ONE Stop: 05/09/21 15:48 Scopolamine (Scopolamine 1.5 Mg Transdermal Patch) 1.5 mg TRDERM Q72H [facility] Last Admin: 05/12/21 17:09 Dose: Not Given Documented by: Sodium Chloride (Sodium Chloride 0.9% 10 Ml Syringe) 10 ml FLUSH ASDIRECTED PRN PRN Reason: Keep Vein Open Sodium Chloride (Sodium Chloride 0.9% 2.5 Ml Syringe) 2.5 ml FLUSH ASDIRECTED PRN PRN Reason: Keep Vein Open Sodium Chloride (Sodium Chloride 0.9% 10 Ml Sdv) 10 ml IV ASDIRECTED PRN PRN Reason: IV Use - Patient Data Lab Results Last 24 hrs: Laboratory Results - last 24 hr 05/13/21 05/13/21 Range/Units 05:15 05:15 WBC 3.92 L (4.0-11.0) K/uL RBC 3.15 L (4.50-5.90) M/uL Hgb 9.8 L (13.0-17.0) g/dL Hct 29.6 L (38.0-50.0) % MCV 94.0 (80.0-98.0) fL MCH 31.1 (27.0-32.0) pg MCHC 33.1 (31.0-37.0) g/dL RDW Std Deviation 46.8 (28.0-62.0) fl RDW Coeff of Moi 14 (11.0-15.0) % Plt Count 242 (150-400) K/uL MPV 10.00 (7.40-12.00) fL Neut % (Auto) 55.2 (48.0-80.0) % Lymph % (Auto) 33.7 (16.0-40.0) % [place] % (Auto) 8.2 (0.0-15.0) % Eos % (Auto) 2.6 (0.0-7.0) % Baso % (Auto) 0.3 (0.0-1.5) % Neut # (Auto) 2.2 (1.4-5.7) K/uL Lymph # (Auto) 1.3 (0.6-2.4) K/uL [place] # (Auto) 0.3 (0.0-0.8) K/uL Eos # (Auto) 0.1 (0.0-0.7) K/uL Baso # (Auto) 0.0 (0.0-0.1) K/uL Nucleated RBC % 0.0 /100WBC Nucleated RBCs # 0 K/uL Sodium 140 (136-148) mmol/L Potassium 4.1 (3.5-5.1) mmol/L Chloride 105 (98-107) mmol/L Carbon Dioxide 27.3 (21.0-32.0) mmol/L BUN 18 (7.0-18.0) mg/dL Creatinine 1.6 H (0.8-1.3) mg/dL Est Cr Clr Drug Dosing 48.48 mL/min Estimated GFR (MDRD) 44.2 ml/min Glucose 108 H (74-106) mg/dL Calcium 8.6 (8.5-10.1) mg/dL Total Bilirubin 0.8 (0.2-1.0) mg/dL AST 57 H (15-37) IU/L ALT 67 H (14-63) IU/L Alkaline Phosphatase 126 H (46-116) U/L Total Protein 6.7 (6.4-8.2) g/dL Albumin 2.6 L (3.4-5.0) g/dL Globulin 4.1 H (2.6-4.0) g/dL Albumin/Globulin Ratio 0.6 L (0.9-1.6) Result Diagrams: 05/13/21 05:15 05/13/21 05:15 Umair Results Last 24 hrs: Microbiology 05/09/21 15:40 Aerobic Culture - Preliminary Bile Gram Stain - Final Anaerobic Culture - Preliminary Sepsis Event Note - Focused Exam Vital Signs: Vital Signs Temp Pulse Resp BP BP Pulse Ox 05/13/21 09:15 133/79 05/13/21 07:46 36.4 C 66 22 H 133/79 94 L 05/13/21 04:20 36.7 C 62 16 114/67 95 - Plan Plan:: I have seen and evaluated the patient and agree with the residents note unless specified in my note
[2021-05-12] MEDS: [UNRECOGNIZED DRUG - OTHER] PO SCH (17:08)
[2021-05-12] MEDS: Fluconazole 100 MG Tab PO SCH (17:08)
[2021-05-12] MEDS: Scopolamine 1.5 MG Transdermal Patch TRDERM SCH (17:09)
--- NOTE | 2021-05-12 20:18 | PCM.SURGPN ---
- General Info Date of Service: 05/12/21 Date of Surgery/Procedure: 05/09/21 POD#: 3 Functional Status: Reports: Pain Controlled, Tolerating Diet, Ambulating, Urinating, Other (having BM) - Review of Systems General: Reports: No Symptoms HEENT: Reports: No Symptoms Pulmonary: Reports: No Symptoms Cardiovascular: Reports: No Symptoms Gastrointestinal: Reports: Flatus. Denies: Abdominal Pain, Decreased Appetite, Diarrhea, Hematochezia, Melena, Nausea, Vomiting Musculoskeletal: Reports: No Symptoms Skin: Reports: No Symptoms - Patient Data Vitals - Most Recent: Last Vital Signs Temp 35.9 C L 05/12/21 20:00 Pulse 66 05/12/21 20:00 Resp 20 05/12/21 20:00 BP 142/86 H 05/12/21 20:00 Pulse Ox 96 05/12/21 20:00 Weight - Most Recent: 77.474 kg I&O - Last 24 Hours: Intake & Output 05/12/21 05/12/21 05/12/21 06:59 14:59 22:59 Intake Total 1000 50 Output Total 45 Balance 955 50 Lab Results Last 24 Hrs: Laboratory Results - last 24 hr 05/12/21 05/12/21 Range/Units 06:17 06:17 WBC 3.40 L (4.0-11.0) K/uL RBC 3.00 L (4.50-5.90) M/uL Hgb 9.5 L (13.0-17.0) g/dL Hct 28.2 L (38.0-50.0) % MCV 94.0 (80.0-98.0) fL MCH 31.7 (27.0-32.0) pg MCHC 33.7 (31.0-37.0) g/dL RDW Std Deviation 47.6 (28.0-62.0) fl RDW Coeff of Moi 14 (11.0-15.0) % Plt Count 210 (150-400) K/uL MPV 9.90 (7.40-12.00) fL Nucleated RBC % 0.0 /100WBC Nucleated RBCs # 0 K/uL Sodium 141 (136-148) mmol/L Potassium 3.8 (3.5-5.1) mmol/L Chloride 106 (98-107) mmol/L Carbon Dioxide 27.3 (21.0-32.0) mmol/L BUN 20 H (7.0-18.0) mg/dL Creatinine 1.7 H (0.8-1.3) mg/dL Est Cr Clr Drug Dosing 45.63 mL/min Estimated GFR (MDRD) 41.2 ml/min Glucose 104 (74-106) mg/dL Calcium 7.8 L (8.5-10.1) mg/dL Total Bilirubin 0.8 (0.2-1.0) mg/dL AST 53 H (15-37) IU/L ALT 64 H (14-63) IU/L Alkaline Phosphatase 110 (46-116) U/L Total Protein 6.4 (6.4-8.2) g/dL Albumin 2.5 L (3.4-5.0) g/dL Globulin 3.9 (2.6-4.0) g/dL Albumin/Globulin Ratio 0.6 L (0.9-1.6) Umair Results Last 24 Hrs: Microbiology 05/09/21 15:40 Aerobic Culture - Preliminary Bile Gram Stain - Final Anaerobic Culture - Preliminary Med Orders - Current: Current Medications Cyclobenzaprine HCl (Cyclobenzaprine 5 Mg Tab) 5 mg PO TID PRN PRN Reason: Muscle Spasm - Painful Diphenhydramine HCl (Diphenhydramine 50 Mg/Ml Sdv) 25 mg IVPUSH Q4H PRN PRN Reason: Itching Fluconazole (Fluconazole 100 Mg Tab) 400 mg PO DAILY@1700 [facility] Last Admin: 05/12/21 17:08 Dose: 400 mg Documented by: Heparin Sodium (Porcine) (Heparin Sodium 5,000 Units/Ml Vial) 5,000 units SUBCUT Q12H [facility] Last Admin: 05/12/21 12:00 Dose: 5,000 units Documented by: Hydrochlorothiazide (Hydrochlorothiazide 25 Mg Tab) 25 mg PO DAILY [facility] Last Admin: 05/12/21 09:04 Dose: 25 mg Documented by: Hydromorphone HCl (Hydromorphone 1 Mg/Ml Syringe) 0.5 mg IVPUSH Q1H PRN PRN Reason: Pain (severe 7-10) Piperacillin Sod/Tazobactam (Sod 3.375 gm/ Sodium Chloride) 50 mls @ 100 mls/hr IV Q6H [facility] Last Admin: 05/12/21 14:21 Dose: 100 mls/hr Documented by: Acetaminophen 1,000 mg/ Premix 100 mls @ 400 mls/hr IV ONETIME PRN PRN Reason: PAIN Lisinopril (Lisinopril 10 Mg Tab) 10 mg PO DAILY [facility] Last Admin: 05/12/21 09:04 Dose: 10 mg Documented by: Multivitamins/Minerals/Vitamin C (Multivitamin Tab) 1 tab PO BEDTIME [facility] Last Admin: 05/11/21 20:09 Dose: 1 tab Documented by: Ondansetron HCl (Ondansetron 4 Mg/2 Ml Sdv) 4 mg IVPUSH Q6H PRN PRN Reason: Nausea/Vomiting Oxycodone/Acetaminophen (Acetaminophen/Oxycodone 325-5 Mg Tab) 2 tab PO Q4H PRN PRN Reason: Pain (severe 7-10) Pantoprazole Sodium (Pantoprazole 40 Mg Tab.Cr) 40 mg PO BEDTIME [facility] Last Admin: 05/11/21 20:09 Dose: 40 mg Documented by: Bictegrav/Emtricit/Tenofov Ala [ Biktarvy 50-200-25 Mg Tab 1 each PO Q24H [facility] Last Admin: 05/12/21 17:08 Dose: 1 each Documented by: Dapsone 100 Mg Tab 1 each PO DAILY [facility] Last Admin: 05/12/21 09:04 Dose: 1 each Documented by: Scopolamine (Scopolamine 1.5 Mg Transdermal Patch) 1.5 mg TRDERM Q72H [facility] Last Admin: 05/12/21 17:09 Dose: Not Given Documented by: Sodium Chloride (Sodium Chloride 0.9% 10 Ml Syringe) 10 ml FLUSH ASDIRECTED PRN PRN Reason: Keep Vein Open Sodium Chloride (Sodium Chloride 0.9% 2.5 Ml Syringe) 2.5 ml FLUSH ASDIRECTED PRN PRN Reason: Keep Vein Open Sodium Chloride (Sodium Chloride 0.9% 10 Ml Sdv) 10 ml IV ASDIRECTED PRN PRN Reason: IV Use Discontinued Medications Hydrocodone Bitart/Acetaminophen (Acetaminophen/Hydrocodone 325-5 Mg Tab) 2 tab PO Q4H PRN PRN Reason: Pain (moderate 4-6) Bupivacaine HCl (Bupivacaine 0.5% 30 Ml Sdv) Confirm Administered Dose 30 ml .ROUTE .[facility]-MED ONE Stop: 05/09/21 14:13 Bupivacaine HCl (Bupivacaine 0.5% 30 Ml Sdv) Confirm Administered Dose 30 ml .ROUTE .[facility]-MED ONE Stop: 05/09/21 15:32 Bupivacaine HCl (Bupivacaine 0.5% 30 Ml Sdv) Confirm Administered Dose 90 ml .ROUTE .STK-MED ONE Stop: 05/09/21 15:33 Cefazolin Sodium (Cefazolin 1 Gm Vial) Confirm Administered Dose 1 gm .ROUTE .STK-MED ONE Stop: 05/09/21 14:14 Cefazolin Sodium (Cefazolin 1 Gm Vial) Confirm Administered Dose 2 gm .ROUTE .STK-MED ONE Stop: 05/09/21 15:40 Cyclobenzaprine HCl (Cyclobenzaprine 5 Mg Tab) 5 mg PO TID JAIDA Last Admin: 05/12/21 06:00 Dose: 5 mg Documented by: Dapsone (Dapsone 100 Mg Tab) 100 mg PO DAILY JAIDA Desflurane (Desflurane 240 Ml Bottle) Confirm Administered Dose 240 ml .ROUTE .STK-MED ONE Stop: 05/09/21 14:21 Dexamethasone (Dexamethasone 4 Mg/Ml 5 Ml Mdv) Confirm Administered Dose 20 mg .ROUTE .STK-MED ONE Stop: 05/09/21 16:48 Fentanyl (Fentanyl 250 Mcg/5 Ml Sdv) Confirm Administered Dose 250 mcg .ROUTE .STK-MED ONE Stop: 05/09/21 14:03 Fentanyl (Fentanyl 250 Mcg/5 Ml Sdv) Confirm Administered Dose 250 mcg .ROUTE .STK-MED ONE Stop: 05/09/21 15:06 Fentanyl (Fentanyl 100 Mcg/2 Ml Sdv) Confirm Administered Dose 100 mcg .ROUTE .STK-MED ONE Stop: 05/09/21 15:41 Fentanyl (Fentanyl 100 Mcg/2 Ml Sdv) Confirm Administered Dose 100 mcg .ROUTE .STK-MED ONE Stop: 05/09/21 16:34 Hydromorphone HCl (Hydromorphone 2 Mg/Ml Syringe) 0.5 mg IVPUSH Q1H PRN PRN Reason: Pain (severe 7-10) Hydromorphone HCl (Hydromorphone 1 Mg/Ml Syringe) 0.5 mg IVPUSH ONETIME PRN PRN Reason: Abdominal Pain Last Admin: 05/09/21 18:04 Dose: 0.5 mg Documented by: Sodium Chloride (Normal Saline) 1,000 mls @ 999 mls/hr IV STAT ONE Stop: 05/08/21 21:08 Last Admin: 05/08/21 21:06 Dose: 999 mls/hr Documented by: Lactated Ringer's (Ringers, Lactated) 1,000 mls @ 125 mls/hr IV ASDIRECTED [facility] Last Admin: 05/10/21 08:41 Dose: 125 mls/hr Documented by: Lactated Ringer's (Ringers, Lactated) 500 mls @ 500 mls/hr IV ASDIRECTED [facility] Last Admin: 05/09/21 08:40 Dose: 500 mls/hr Documented by: Acetaminophen (Ofirmev 1000 Mg/100 Ml) Confirm Administered Dose 100 mls @ as directed .ROUTE .STK-MED ONE Stop: 05/09/21 16:51 Iopamidol (Iopamidol 755 Mg/Ml 500 Ml Multipack Bottle) 85 ml IVPUSH ONETIME STA Stop: 05/08/21 17:03 Last Admin: 05/08/21 17:13 Dose: 85 ml Documented by: Ketorolac Tromethamine (Ketorolac 30 Mg/Ml Sdv) Confirm Administered Dose 30 mg .ROUTE .STK-MED ONE Stop: 05/09/21 16:50 Ketorolac Tromethamine (Ketorolac 15 Mg/Ml Sdv) 15 mg IVPUSH Q6H JAIDA Stop: 05/14/21 23:00 Last Admin: 05/12/21 06:00 Dose: 15 mg Documented by: Miscellaneous Medication (Phenylephrine Hcl In 0.9% Nacl 1 Mg/10 Ml Syringe) Confirm Administered Dose 1 mg .ROUTE .STK-MED ONE Stop: 05/09/21 16:00 Morphine Sulfate (Morphine 4 Mg/Ml Syringe) 4 mg IVPUSH ONETIME ONE Stop: 05/08/21 20:09 Last Admin: 05/08/21 21:12 Dose: 4 mg Documented by: Octyl Cyanoacrylate (Octyl 2-Cyanoacrylate 1 Tube) Confirm Administered Dose 1 applic .ROUTE .STK-MED ONE Stop: 05/09/21 14:13 Ondansetron HCl (Ondansetron 4 Mg/2 Ml Sdv) 4 mg IVPUSH ONETIME ONE Stop: 05/08/21 20:09 Last Admin: 05/08/21 21:09 Dose: 4 mg Documented by: Ondansetron HCl (Ondansetron 4 Mg/2 Ml Sdv) Confirm Administered Dose 4 mg .ROUTE .STK-MED ONE Stop: 05/09/21 16:48 Propofol (Propofol 200 Mg/20 Ml Sdv) Confirm Administered Dose 200 mg .ROUTE .STK-MED ONE Stop: 05/09/21 14:02 Rocuronium [place] (Rocuronium [place] 50 Mg/5 Ml Syringe) Confirm Administered Dose 50 mg .ROUTE .STK-MED ONE Stop: 05/09/21 15:40 Rocuronium [place] (Rocuronium [place] 50 Mg/5 Ml Syringe) Confirm Administered Dose 50 mg .ROUTE .STK-MED ONE Stop: 05/09/21 15:48 - Exam Wound/Incisions: Healing Well, Other (Drain with scant serosanguinous drainage with no bile staining ) General: Alert, Oriented, Cooperative HEENT: Pupils Equal Lungs: Clear to Auscultation, Normal Respiratory Effort Cardiovascular: Regular Rate, Regular Rhythm GI/Abdominal Exam: Soft, Non-Tender, No Distention, No Mass Skin: Warm, Dry, Intact Psy/Mental Status: Alert, Normal Affect Sepsis Event Note - Evaluation Sepsis Screening Result: No Definite Risk - Focused Exam Vital Signs: Vital Signs Temp Pulse Resp BP BP Pulse Ox 05/12/21 20:00 35.9 C L 66 20 142/86 H 96 05/12/21 16:00 36.2 C 59 L 18 118/72 94 L 05/12/21 12:00 36.6 C 65 16 124/80 94 L 05/12/21 09:04 118/80 - Problem List & Annotations (1) HIV (human immunodeficiency virus infection) SNOMED Code(s): 75095090 Code(s): B20 - HUMAN IMMUNODEFICIENCY VIRUS [HIV] DISEASE Status: Acute Current Visit: Yes Qualifiers: HIV symptom status: asymptomatic, with no history of HIV-related illness Qualified Code(s): Z21 - Asymptomatic human immunodeficiency virus [HIV] infection status (2) Acute cholecystitis SNOMED Code(s): 64985795 Code(s): K81.0 - ACUTE CHOLECYSTITIS Status: Acute Current Visit: Yes - Problem List Review Problem List Initiated/Reviewed/Updated: Yes - My Orders Last 24 Hours: Active Orders 24 hr Category Date Time Status BMP [BASIC METABOLIC PANEL,BMP] [CHEM] AM Lab 05/13/21 05:11 Ordered CBC W/O DIFF,HEMOGRAM [HEME] AM Lab 05/13/21 05:11 Ordered CBC WITH AUTO DIFF [HEME] AM Lab 05/13/21 05:11 Ordered CMP [COMPREHENSIVE METABOLIC PN,CMP] [CHEM] AM Lab 05/13/21 05:11 Ordered Cyclobenzaprine [Flexeril] Med 05/12/21 07:24 Active 5 mg PO TID PRN Medication Orders Cyclobenzaprine HCl (Cyclobenzaprine 5 Mg Tab) 5 mg PO TID PRN PRN Reason: Muscle Spasm - Painful Diphenhydramine HCl (Diphenhydramine 50 Mg/Ml Sdv) 25 mg IVPUSH Q4H PRN PRN Reason: Itching Fluconazole (Fluconazole 100 Mg Tab) 400 mg PO DAILY@1700 [facility] Last Admin: 05/12/21 17:08 Dose: 400 mg Documented by: Admin: 05/11/21 17:14 Dose: 400 mg Documented by: Admin: 05/10/21 17:08 Dose: 400 mg Documented by: Admin: 05/09/21 19:13 Dose: 400 mg Documented by: DAVID Heparin Sodium (Porcine) (Heparin Sodium 5,000 Units/Ml Vial) 5,000 units SUBCUT Q12H [facility] Last Admin: 05/12/21 12:00 Dose: 5,000 units Documented by: Admin: 05/11/21 23:44 Dose: 5,000 units Documented by: Admin: 05/11/21 11:07 Dose: 5,000 units Documented by: Admin: 05/10/21 23:53 Dose: 5,000 units Documented by: Admin: 05/10/21 11:15 Dose: 5,000 units Documented by: WILLY Hydrochlorothiazide (Hydrochlorothiazide 25 Mg Tab) 25 mg PO DAILY [facility] Last Admin: 05/12/21 09:04 Dose: 25 mg Documented by: Admin: 05/11/21 08:18 Dose: 25 mg Documented by: Admin: 05/10/21 08:33 Dose: 25 mg Documented by: WILLY Hydromorphone HCl (Hydromorphone 1 Mg/Ml Syringe) 0.5 mg IVPUSH Q1H PRN PRN Reason: Pain (severe 7-10) Piperacillin Sod/Tazobactam (Sod 3.375 gm/ Sodium Chloride) 50 mls @ 100 mls/hr IV Q6H [facility] Admin: 05/12/21 14:21 Dose: 100 mls/hr Documented by: Infusion: 05/12/21 09:34 Dose: 100 mls/hr Documented by: Admin: 05/12/21 09:04 Dose: 100 mls/hr Documented by: Infusion: 05/12/21 02:58 Dose: 100 mls/hr Documented by: Admin: 05/12/21 02:28 Dose: 100 mls/hr Documented by: Infusion: 05/11/21 20:36 Dose: 100 mls/hr Documented by: [facility] Admin: 05/11/21 20:06 Dose: 100 mls/hr Documented by: Infusion: 05/11/21 13:56 Dose: 100 mls/hr Documented by: Admin: 05/11/21 13:26 Dose: 100 mls/hr Documented by: Infusion: 05/11/21 08:48 Dose: 100 mls/hr Documented by: Admin: 05/11/21 08:18 Dose: 100 mls/hr [facility]: 05/11/21 03:30 Dose: 100 mls/hr [facility] Admin: 05/11/21 03:00 Dose: 100 mls/hr Documented by: Infusion: 05/10/21 21:23 Dose: 100 mls/hr Documented by: [facility] Admin: 05/10/21 20:53 Dose: 100 mls/hr Documented by: Infusion: 05/10/21 14:47 Dose: 100 mls/hr Documented by: Admin: 05/10/21 14:17 Dose: 100 mls/hr Documented by: Infusion: 05/10/21 09:04 Dose: 100 mls/hr Documented by: [facility] Admin: 05/10/21 08:34 Dose: 100 mls/hr Documented by: Infusion: 05/10/21 02:50 Dose: 100 mls/hr Documented by: Admin: 05/10/21 02:20 Dose: 100 mls/hr Documented by: Infusion: 05/09/21 21:25 Dose: 100 mls/hr Documented by: Admin: 05/09/21 20:55 Dose: 100 mls/hr Documented by: Infusion: 05/09/21 14:23 Dose: 100 mls/hr Documented by: Admin: 05/09/21 13:53 Dose: 100 mls/hr Documented by: Infusion: 05/09/21 09:09 Dose: 100 mls/hr Documented by: Admin: 05/09/21 08:39 Dose: 100 mls/hr Documented by: Infusion: 05/09/21 03:32 Dose: 100 mls/hr Documented by: Admin: 05/09/21 03:02 Dose: 100 mls/hr Documented by: Infusion: 05/08/21 21:46 Dose: 100 mls/hr Documented by: Admin: 05/08/21 21:16 Dose: 100 mls/hr Documented by: JORGE LUIS Acetaminophen 1,000 mg/ Premix 100 mls @ 400 mls/hr IV ONETIME PRN PRN Reason: PAIN Lisinopril (Lisinopril 10 Mg Tab) 10 mg PO DAILY [facility] Last Admin: 05/12/21 09:04 Dose: 10 mg Documented by: Admin: 05/11/21 08:18 Dose: 10 mg Documented by: Admin: 05/10/21 08:33 Dose: Not Given Documented by: WILLY Multivitamins/Minerals/Vitamin C (Multivitamin Tab) 1 tab PO BEDTIME [facility] Last Admin: 05/11/21 20:09 Dose: 1 tab Documented by: Admin: 05/10/21 21:20 Dose: 1 tab Documented by: MALLORY Ondansetron HCl (Ondansetron 4 Mg/2 Ml Sdv) 4 mg IVPUSH Q6H PRN PRN Reason: Nausea/Vomiting Oxycodone/Acetaminophen (Acetaminophen/Oxycodone 325-5 Mg Tab) 2 tab PO Q4H PRN PRN Reason: Pain (severe 7-10) Pantoprazole Sodium (Pantoprazole 40 Mg Tab.Cr) 40 mg PO BEDTIME [facility] Last Admin: 05/11/21 20:09 Dose: 40 mg Documented by: Admin: 05/10/21 21:20 Dose: 40 mg Documented by: MALLORY Bictegrav/Emtricit/Tenofov Ala [ Biktarvy 50-200-25 Mg Tab 1 each PO Q24H [facility] Last Admin: 05/12/21 17:08 Dose: 1 each Documented by: Admin: 05/11/21 17:14 Dose: 1 each Documented by: Admin: 05/10/21 18:23 Dose: 1 each Documented by: Admin: 05/09/21 18:54 Dose: 1 each Documented by: DAVID Dapsone 100 Mg Tab 1 each PO DAILY [facility] Last Admin: 05/12/21 09:04 Dose: 1 each Documented by: Admin: 05/11/21 08:19 Dose: 1 each Documented by: Admin: 05/10/21 08:42 Dose: 1 each Documented by: WILLY Scopolamine (Scopolamine 1.5 Mg Transdermal Patch) 1.5 mg TRDERM Q72H [facility] Last Admin: 05/12/21 17:09 Dose: Not Given Documented by: Admin: 05/09/21 19:13 Dose: 1.5 mg Documented by: DAVID Sodium Chloride (Sodium Chloride 0.9% 10 Ml Syringe) 10 ml FLUSH ASDIRECTED PRN PRN Reason: Keep Vein Open Sodium Chloride (Sodium Chloride 0.9% 2.5 Ml Syringe) 2.5 ml FLUSH ASDIRECTED PRN PRN Reason: Keep Vein Open Sodium Chloride (Sodium Chloride 0.9% 10 Ml Sdv) 10 ml IV ASDIRECTED PRN PRN Reason: IV Use - Plan Plan (Free Text/Narrative):: Pain well controlled on oral medications. WBC decreased but no signs of infection. Continue IV medications. Will transition to oral antibiotics starting tomorrow. Drain removed today. OnQ still in. D/C scheduled flexeril. Can have prn. Cr slightly elevated. Will recheck tomorrow. Regular diet. UOP adequate.
[2021-05-12] MEDS: Pantoprazole 40 MG Tab.CR PO SCH (21:07)
[2021-05-12] MEDS: Multivitamin Tab PO SCH (21:07)
[2021-05-13] MEDS: Heparin Sodium 5,000 Units/ML Vial SUBCUT SCH (00:17)
[2021-05-13] MEDS: Piperacillin/Tazobactam 3.375 GM in Sodium Chloride 0.9% 50 ML IV SCH (02:51)
--- NOTE | 2021-05-13 05:46 | PCM.DCSUM1 ---
Discharge Summary - Hospital Course Free Text/Narrative:: Patient is a 60 year old HIV positive male who presented to the ER with abdominal pain. He was found on workup to have large distended gallbladder containing multiple stones with one stone impacted at the neck of the gallbladder. He was admitted. He was kept NPO, given IVF and IV antibiotics. Given his HIV status, medicine team was consulted for medical management. The next morning his bilirubin had increased to 1.9. An MR of the abdomen showed acute cholecystitis with cholelithiasis and no evidence of choledocholithiasis. He was taken to the OR that afternoon for a cholecystectomy. The gallbladder was distended and had dense inflammatory adhesions. The case was converted from laparoscopic to open. The gallbladder was able to be removed however there was some bleeding afterwards. This was able to be controlled operatively with clotting agents, cautery, and ligation of bleeding points. A drain was left in place. Fluid from the gallbladder was sent for culture and gram stain. Currently cultures are negative and gram stain showed no organisms. He was left on IV antibiotics and given prophylactic fluconazole given a low CD4 count. He had an NG the night of surgery which had minimal output overnight. The NG was removed the next morning. His hgb dropped down ~1.5 gm after surgery. He remained vitally stable. His drain output was initially bloody with bilious staining. Over the course of his stay the drainage became less, turned more serosanguinous and the bile staining went away. The drain was removed on POD #3. His pain was well controlled with IV toradol (scheduled), IV tylenol, and flexeril. He used minimal narcotics. He had return of bowel function on POD #2. His diet was advanced on POD #2 without difficulty. He was net positive almost 6 L on POD #1 so his IVF were stopped. He was transitioned to all oral medications. His labs this morning were stable. He was cleared for discharge. - Discharge Data Discharge Date: 05/13/21 Discharge Disposition: Home, Self-Care 01 Condition: Stable - Referral to Home Health Primary Care Physician: PCP Not In Area - Discharge Diagnosis/Problem(s) (1) HIV (human immunodeficiency virus infection) SNOMED Code(s): 26812311 ICD Code: B20 - HUMAN IMMUNODEFICIENCY VIRUS [HIV] DISEASE Status: Acute Current Visit: Yes Qualifiers: HIV symptom status: asymptomatic, with no history of HIV-related illness Qualified Code(s): Z21 - Asymptomatic human immunodeficiency virus [HIV] infection status (2) Acute cholecystitis SNOMED Code(s): 46076668 ICD Code: K81.0 - ACUTE CHOLECYSTITIS Status: Acute Current Visit: Yes (3) HTN (hypertension) SNOMED Code(s): 68955517 ICD Code: I10 - ESSENTIAL (PRIMARY) HYPERTENSION Status: Acute Current Visit: Yes Qualifiers: Hypertension type: primary hypertension Qualified Code(s): I10 - Essential (primary) hypertension - Patient Summary/Data Operative Procedure(s) Performed: Laparoscopic converted to open cholecystectomy Consults: Consultations 05/08/21 20:09 Consult to Physician [CONS] Stat 05/09/21 11:25 Consult to Physician [CONS] Routine - Patient Instructions Diet: Regular Diet as Tolerated Activity: No Lifting Over 20 Pounds (for six weeks after surgery ), Rest and Relax Today Driving: Do Not Drive (for one week ) Showering/Bathing: May Shower, No Tub Bathing/Swimming (for 2 weeks after surgery ) Wound/Incision Care: Keep Operative Site/Wound Site Clean and Dry Notify Provider of: Fever, Increased Pain, Swelling and Redness, Drainage, Nausea and/or Vomiting - Discharge Plan *PRESCRIPTION DRUG MONITORING PROGRAM REVIEWED*: Yes *COPY OF PRESCRIPTION DRUG MONITORING REPORT IN PATIENT TRUMAN: Yes Home Medications: Home Meds Bictegrav/Emtricit/Tenofov Ala [Biktarvy 50-200-25 mg Tablet] 1 tab PO DAILY 05/08/21 [History] Dapsone 100 mg pe PO DAILY 05/08/21 [History] hydroCHLOROthiazide [Hydrochlorothiazide] 1 tab PO DAILY 05/08/21 [History] lisinopriL [Lisinopril] 10 mg PO DAILY 05/08/21 [History] Acetaminophen/oxyCODONE [Percocet 325-5 MG] 2 tab PO Q4H PRN tablet 05/12/21 [Rx] Cyclobenzaprine [Flexeril] 5 mg PO TID PRN tablet 05/12/21 [Rx] Fluconazole [Diflucan] 400 mg PO DAILY@1700 tablet 05/12/21 [Rx] Patient Handouts: Open Cholecystectomy, Open Cholecystectomy, Care After Forms: ED Department Discharge Referrals: Reyna Light MD [Physician] - 05/21/21 1:15 pm - Discharge Summary/Plan Comment DC Time >30 min.: No Total # of Minutes for Discharge Time: 20 - General Info Functional Status: Reports: Pain Controlled, Tolerating Diet, Ambulating, Urinating - Review of Systems General: Reports: No Symptoms HEENT: Reports: No Symptoms Pulmonary: Reports: No Symptoms Cardiovascular: Reports: No Symptoms Gastrointestinal: Reports: No Symptoms Genitourinary: Reports: No Symptoms Musculoskeletal: Reports: No Symptoms - Patient Data Vitals - Most Recent: Last Vital Signs Temp 36.2 C 05/13/21 00:00 Pulse 64 05/13/21 00:00 Resp 20 05/13/21 00:00 BP 121/70 05/13/21 00:00 Pulse Ox 96 05/12/21 20:00 Weight - Most Recent: 77.474 kg I&O - Last 24 hours: Intake & Output 05/12/21 05/12/21 05/13/21 14:59 22:59 06:59 Intake Total 50 50 Balance 50 50 Lab Results - Last 24 hrs: Laboratory Results - last 24 hr 05/12/21 05/12/21 Range/Units 06:17 06:17 WBC 3.40 L (4.0-11.0) K/uL RBC 3.00 L (4.50-5.90) M/uL Hgb 9.5 L (13.0-17.0) g/dL Hct 28.2 L (38.0-50.0) % MCV 94.0 (80.0-98.0) fL MCH 31.7 (27.0-32.0) pg MCHC 33.7 (31.0-37.0) g/dL RDW Std Deviation 47.6 (28.0-62.0) fl RDW Coeff of Moi 14 (11.0-15.0) % Plt Count 210 (150-400) K/uL MPV 9.90 (7.40-12.00) fL Nucleated RBC % 0.0 /100WBC Nucleated RBCs # 0 K/uL Sodium 141 (136-148) mmol/L Potassium 3.8 (3.5-5.1) mmol/L Chloride 106 (98-107) mmol/L Carbon Dioxide 27.3 (21.0-32.0) mmol/L BUN 20 H (7.0-18.0) mg/dL Creatinine 1.7 H (0.8-1.3) mg/dL Est Cr Clr Drug Dosing 45.63 mL/min Estimated GFR (MDRD) 41.2 ml/min Glucose 104 (74-106) mg/dL Calcium 7.8 L (8.5-10.1) mg/dL Total Bilirubin 0.8 (0.2-1.0) mg/dL AST 53 H (15-37) IU/L ALT 64 H (14-63) IU/L Alkaline Phosphatase 110 (46-116) U/L Total Protein 6.4 (6.4-8.2) g/dL Albumin 2.5 L (3.4-5.0) g/dL Globulin 3.9 (2.6-4.0) g/dL Albumin/Globulin Ratio 0.6 L (0.9-1.6) ALISSA Results - Last 24 hrs: Microbiology 05/09/21 15:40 Aerobic Culture - Preliminary Bile Gram Stain - Final Anaerobic Culture - Preliminary Med Orders - Current: Current Medications Cyclobenzaprine HCl (Cyclobenzaprine 5 Mg Tab) 5 mg PO TID PRN PRN Reason: Muscle Spasm - Painful Diphenhydramine HCl (Diphenhydramine 50 Mg/Ml Sdv) 25 mg IVPUSH Q4H PRN PRN Reason: Itching Fluconazole (Fluconazole 100 Mg Tab) 400 mg PO DAILY@1700 [facility] Last Admin: 05/12/21 17:08 Dose: 400 mg Documented by: Heparin Sodium (Porcine) (Heparin Sodium 5,000 Units/Ml Vial) 5,000 units SUBCUT Q12H [facility] Last Admin: 05/13/21 00:17 Dose: 5,000 units Documented by: Hydrochlorothiazide (Hydrochlorothiazide 25 Mg Tab) 25 mg PO DAILY [facility] Last Admin: 05/12/21 09:04 Dose: 25 mg Documented by: Hydromorphone HCl (Hydromorphone 1 Mg/Ml Syringe) 0.5 mg IVPUSH Q1H PRN PRN Reason: Pain (severe 7-10) Piperacillin Sod/Tazobactam (Sod 3.375 gm/ Sodium Chloride) 50 mls @ 100 mls/hr IV Q6H [facility] Last Admin: 05/13/21 02:51 Dose: 100 mls/hr Documented by: Acetaminophen 1,000 mg/ Premix 100 mls @ 400 mls/hr IV ONETIME PRN PRN Reason: PAIN Lisinopril (Lisinopril 10 Mg Tab) 10 mg PO DAILY [facility] Last Admin: 05/12/21 09:04 Dose: 10 mg Documented by: Multivitamins/Minerals/Vitamin C (Multivitamin Tab) 1 tab PO BEDTIME [facility] Last Admin: 05/12/21 21:07 Dose: 1 tab Documented by: Ondansetron HCl (Ondansetron 4 Mg/2 Ml Sdv) 4 mg IVPUSH Q6H PRN PRN Reason: Nausea/Vomiting Oxycodone/Acetaminophen (Acetaminophen/Oxycodone 325-5 Mg Tab) 2 tab PO Q4H PRN PRN Reason: Pain (severe 7-10) Pantoprazole Sodium (Pantoprazole 40 Mg Tab.Cr) 40 mg PO BEDTIME [facility] Last Admin: 05/12/21 21:07 Dose: 40 mg Documented by: Bictegrav/Emtricit/Tenofov Ala [ Biktarvy 50-200-25 Mg Tab 1 each PO Q24H [facility] Last Admin: 05/12/21 17:08 Dose: 1 each Documented by: Dapsone 100 Mg Tab 1 each PO DAILY [facility] Last Admin: 05/12/21 09:04 Dose: 1 each Documented by: Scopolamine (Scopolamine 1.5 Mg Transdermal Patch) 1.5 mg TRDERM Q72H [facility] Last Admin: 05/12/21 17:09 Dose: Not Given Documented by: Sodium Chloride (Sodium Chloride 0.9% 10 Ml Syringe) 10 ml FLUSH ASDIRECTED PRN PRN Reason: Keep Vein Open Sodium Chloride (Sodium Chloride 0.9% 2.5 Ml Syringe) 2.5 ml FLUSH ASDIRECTED PRN PRN Reason: Keep Vein Open Sodium Chloride (Sodium Chloride 0.9% 10 Ml Sdv) 10 ml IV ASDIRECTED PRN PRN Reason: IV Use Discontinued Medications Hydrocodone Bitart/Acetaminophen (Acetaminophen/Hydrocodone 325-5 Mg Tab) 2 tab PO Q4H PRN PRN Reason: Pain (moderate 4-6) Bupivacaine HCl (Bupivacaine 0.5% 30 Ml Sdv) Confirm Administered Dose 30 ml .ROUTE .[facility] ONE Stop: 05/09/21 14:13 Bupivacaine HCl (Bupivacaine 0.5% 30 Ml Sdv) Confirm Administered Dose 30 ml .ROUTE .STK-MED ONE Stop: 05/09/21 15:32 Bupivacaine HCl (Bupivacaine 0.5% 30 Ml Sdv) Confirm Administered Dose 90 ml .ROUTE .STK-MED ONE Stop: 05/09/21 15:33 Cefazolin Sodium (Cefazolin 1 Gm Vial) Confirm Administered Dose 1 gm .ROUTE .STK-MED ONE Stop: 05/09/21 14:14 Cefazolin Sodium (Cefazolin 1 Gm Vial) Confirm Administered Dose 2 gm .ROUTE .STK-MED ONE Stop: 05/09/21 15:40 Cyclobenzaprine HCl (Cyclobenzaprine 5 Mg Tab) 5 mg PO TID [facility] Last Admin: 05/12/21 06:00 Dose: 5 mg Documented by: Dapsone (Dapsone 100 Mg Tab) 100 mg PO DAILY [facility] Desflurane (Desflurane 240 Ml Bottle) Confirm Administered Dose 240 ml .ROUTE .STK-MED ONE Stop: 05/09/21 14:21 Dexamethasone (Dexamethasone 4 Mg/Ml 5 Ml Mdv) Confirm Administered Dose 20 mg .ROUTE .STK-MED ONE Stop: 05/09/21 16:48 Fentanyl (Fentanyl 250 Mcg/5 Ml Sdv) Confirm Administered Dose 250 mcg .ROUTE .STK-MED ONE Stop: 05/09/21 14:03 Fentanyl (Fentanyl 250 Mcg/5 Ml Sdv) Confirm Administered Dose 250 mcg .ROUTE .STK-MED ONE Stop: 05/09/21 15:06 Fentanyl (Fentanyl 100 Mcg/2 Ml Sdv) Confirm Administered Dose 100 mcg .ROUTE .STK-MED ONE Stop: 05/09/21 15:41 Fentanyl (Fentanyl 100 Mcg/2 Ml Sdv) Confirm Administered Dose 100 mcg .ROUTE .STK-MED ONE Stop: 05/09/21 16:34 Hydromorphone HCl (Hydromorphone 2 Mg/Ml Syringe) 0.5 mg IVPUSH Q1H PRN PRN Reason: Pain (severe 7-10) Hydromorphone HCl (Hydromorphone 1 Mg/Ml Syringe) 0.5 mg IVPUSH ONETIME PRN PRN Reason: Abdominal Pain Last Admin: 05/09/21 18:04 Dose: 0.5 mg Documented by: Sodium Chloride (Normal Saline) 1,000 mls @ 999 mls/hr IV STAT ONE Stop: 05/08/21 21:08 Last Admin: 05/08/21 21:06 Dose: 999 mls/hr Documented by: Lactated Ringer's (Ringers, Lactated) 1,000 mls @ 125 mls/hr IV ASDIRECTED [facility] Last Admin: 05/10/21 08:41 Dose: 125 mls/hr Documented by: Lactated Ringer's (Ringers, Lactated) 500 mls @ 500 mls/hr IV ASDIRECTED [facility] Last Admin: 05/09/21 08:40 Dose: 500 mls/hr Documented by: Acetaminophen (Ofirmev 1000 Mg/100 Ml) Confirm Administered Dose 100 mls @ as directed .ROUTE .STK-MED ONE Stop: 05/09/21 16:51 Iopamidol (Iopamidol 755 Mg/Ml 500 Ml Multipack Bottle) 85 ml IVPUSH ONETIME STA Stop: 05/08/21 17:03 Last Admin: 05/08/21 17:13 Dose: 85 ml Documented by: Ketorolac Tromethamine (Ketorolac 30 Mg/Ml Sdv) Confirm Administered Dose 30 mg .ROUTE .STK-MED ONE Stop: 05/09/21 16:50 Ketorolac Tromethamine (Ketorolac 15 Mg/Ml Sdv) 15 mg IVPUSH Q6H [facility] Stop: 05/14/21 23:00 Last Admin: 05/12/21 06:00 Dose: 15 mg Documented by: Miscellaneous Medication (Phenylephrine Hcl In 0.9% Nacl 1 Mg/10 Ml Syringe) Confirm Administered Dose 1 mg .ROUTE .STK-MED ONE Stop: 05/09/21 16:00 Morphine Sulfate (Morphine 4 Mg/Ml Syringe) 4 mg IVPUSH ONETIME ONE Stop: 05/08/21 20:09 Last Admin: 05/08/21 21:12 Dose: 4 mg Documented by: Octyl Cyanoacrylate (Octyl 2-Cyanoacrylate 1 Tube) Confirm Administered Dose 1 applic .ROUTE .STK-MED ONE Stop: 05/09/21 14:13 Ondansetron HCl (Ondansetron 4 Mg/2 Ml Sdv) 4 mg IVPUSH ONETIME ONE Stop: 05/08/21 20:09 Last Admin: 09/16/21 21:09 Dose: 4 mg Documented by: Ondansetron HCl (Ondansetron 4 Mg/2 Ml Sdv) Confirm Administered Dose 4 mg .ROUTE .STK-MED ONE Stop: 05/09/21 16:48 Propofol (Propofol 200 Mg/20 Ml Sdv) Confirm Administered Dose 200 mg .ROUTE .STK-MED ONE Stop: 05/09/21 14:02 Rocuronium [place] (Rocuronium [place] 50 Mg/5 Ml Syringe) Confirm Administered Dose 50 mg .ROUTE .STK-MED ONE Stop: 05/09/21 15:40 Rocuronium [place] (Rocuronium [place] 50 Mg/5 Ml Syringe) Confirm Administered Dose 50 mg .ROUTE .STK-MED ONE Stop: 05/09/21 15:48 - Exam General: Reports: Alert, Oriented HEENT: Reports: Pupils Equal, Pupils Reactive Lungs: Reports: Normal Respiratory Effort Cardiovascular: Reports: Regular Rate GI/Abdominal Exam: Soft, Non-Tender, No Distention, No Mass Skin: Reports: Warm, Dry, Intact Wound/Incisions: Reports: Healing Well
[2021-05-13] MEDS ORDERED: Levofloxacin 750 MG Tab PO SCH (06:00)
[2021-05-13] MEDS ORDERED: metroNIDAZOLE 250 MG Tab PO SCH (06:00)
[2021-05-13 06:38] LABS: CARBON DIOXIDE,CO2 27.3 mmol/L (21.0-32.0); POTASSIUM,K 4.1 mmol/L (3.5-5.1)
[2021-05-13 07:47] VITALS: BP 133/79; PULSE 66
[2021-05-13] MEDS: Lisinopril 10 MG Tab PO SCH (09:15)
[2021-05-13] MEDS: DAPSONE 100 MG PO SCH (09:15)
[2021-05-13] MEDS: Hydrochlorothiazide 25 MG Tab PO SCH (09:15)
== END 2021-05-13 10:00 | disposition home or self-care (01) | DRG 415 ==
LOC: MW.ED 13:17 → MW.MS 20:11 → OBSVTOIN 05-09 17:26 → MW.MS 05-09 18:41
PROVIDERS: ADMIT Surgery; ATTEND Surgery
PROC: 0FT40ZZ Resection of Gallbladder, Open Approach (ICD-10-PCS; principal; 2021-05-09)
PROC: 0FJ44ZZ Inspection of Gallbladder, Percutaneous Endoscopic Approach (ICD-10-PCS; 2021-05-09)
DX: K80.00 Calculus of gallbladder with acute cholecystitis without obstruction (principal); K91.71 Accidental puncture and laceration of a digestive system organ or structure during a digestive system procedure; Z21 Asymptomatic human immunodeficiency virus [HIV] infection status; Z20.822 Contact with and (suspected) exposure to COVID-19; Z79.899 Other long term (current) drug therapy; Z53.31 Laparoscopic surgical procedure converted to open procedure; E86.0 Dehydration; K66.0 Peritoneal adhesions (postprocedural) (postinfection); Y83.9 Surgical procedure, unspecified as the cause of abnormal reaction of the patient, or of later complication, without mention of misadventure at the time of the procedure; N18.9 Chronic kidney disease, unspecified; I12.9 Hypertensive chronic kidney disease with stage 1 through stage 4 chronic kidney disease, or unspecified chronic kidney disease
CPT/HCPCS: 00790; 36415; 74177; 74177-26; 74181; 74181-26; 76705; 76705-26; 80053; 83690; 85014; 85018; 85025; 85027; 87070; 87075; 87205; 88304; 99284; 99285-25; A9270-GY; J0131; J0690; J1100; J1170; J1644; J1885; J2270; J2370; J2405; J2543; J2704; J3010; J3490; J7030; J7120; Q9967; U0002

== ENCOUNTER 2021-06-21 04:28 | Emergency (ER) | payer BC, MEDICAID ==
[2021-06-21] MEDS ORDERED: Famotidine 20 MG Tab PO ONE (04:52)
[2021-06-21] MEDS ORDERED: Alum Hydro/Mag Hydro/Simeth XS 15 ML, Lidocaine 2% 5 ML PO ONE ×2 (04:52)
[2021-06-21 05:31] LABS: CARBON DIOXIDE,CO2 27.5 mmol/L (21.0-32.0); POTASSIUM,K 3.4 mmol/L (3.5-5.1)
[2021-06-21] MEDS ORDERED: Iopamidol 755 MG/ML 500 ML Multipack Bottle IVPUSH STA (06:21)
--- NOTE | 2021-06-21 06:27 | EDM.PDOC ---
ED HPI GENERAL MEDICAL PROBLEM - General Chief Complaint: Abdominal Pain Stated Complaint: ABDOMINAL PAIN; RECENT SURGERY Time Seen by Provider: 06/21/21 04:43 - History of Present Illness INITIAL COMMENTS - FREE TEXT/NARRATIVE: CHIEF COMPLAINT(S): Abdominal pain HISTORY OF PRESENT ILLNESS: This is a 60-year-old man with a past medical history of HIV and recent cholecystectomy approximately 1 month ago who comes to the emergency department with a chief complaint of abdominal pain. The patient states that approximately 2 hours prior to arrival he woke up with pain in the pit of his stomach. He describes it as sharp rated 2 out of 10. He denies any radiation of this pain. He states that it was 10 out of 10 earlier but it has improved since he has burped and drink water. He does not recall any exacerbating factors but his family member who is in present stated that he did have some more fatty food this evening that may have caused this. They said that they were mainly concerned because of the recent surgery. He denies any vomiting, melena, hematochezia, hematemesis or bilious emesis. He denies any fevers or chills. He denies any chest pain or shortness of breath. REVIEW OF SYSTEMS: Constitutional: Denies fever, chills. Eyes: Denies eye pain Ears, Nose, Mouth, & Throat: Denies earache Cardiovascular: Denies chest pain Respiratory: Denies shortness of breath Gastrointestinal: Positive for epigastric abdominal pain and belching. Denies nausea, vomiting, diarrhea, hematochezia, hematemesis, bilious emesis Genitourinary: Denies hematuria Skin:Denies a rash MSK: Denies joint pain Neurological: Denies blurred vision Psychiatric: Denies depression PAST MEDICAL HISTORY: As per history of present illness and as reviewed below otherwise noncontributory. SURGICAL HISTORY: As per history of present illness and as reviewed below otherwise noncontributory. SOCIAL HISTORY: As per history of present illness and as reviewed below otherwise noncontributory. FAMILY HISTORY: As per history of present illness and as reviewed below otherwise noncontributory. EXAMINATION OF ORGAN SYSTEMS/BODY AREAS: Constitutional: Blood pressure was 131/76, heart rate 66, respiratory rate 17 with an oxygen saturation 97% on room air. Temperature 36.6 General: Well-appearing man who is in no acute distress Psychiatric: Appropriate mood and affect. Eyes: No scleral icterus or conjunctival erythema ENMT: Moist mucous membranes. No pharyngeal erythema Cardiovascular: Regular, rate, and rhythm. No gallops, murmurs, or rubs. Bilateral upper extremity pulses symmetric and intact. No peripheral edema. No JVD. Respiratory: Lungs clear to auscultation bilaterally. No wheezes, rales, or rhonchi. Gastrointestinal: Soft, minimal tenderness in the right upper quadrant, nondistended. No rebound or guarding. Normoactive bowel sounds Genitourinary: No suprapubic tenderness Musculoskeletal: Normal range of motion. Skin: No lesions or abrasions. Neurological: Alert, GCS 15 MEDICAL DECISION MAKING AND COURSE IN THE ED WITH INTERPRETATION/REVIEW OF DIAGNOSTIC STUDIES: This is a 60-year-old man with a past medical history of HIV and recent cholecystectomy approximately 1 month ago who comes to the emergency department with acute right upper quadrant abdominal pain who has normal vital signs and overall appears well. At this time differential does include postoperative abnormality, gastritis, peptic ulcer disease, gastroenteritis. Will obtain CBC, CMP and lipase. Will obtain a CT abdomen pelvis with IV contrast. Given that his pain is already improved we will hold off on pain medication administration. We will provide the patient with famotidine and GI cocktail and reevaluate. Laboratory: CBC reveals leukopenia with a white blood cell count of 3.80 which is essentially unchanged. The patient's lymphocyte number is within normal limits. There is a mild normocytic anemia with a hemoglobin of 12.7 hematocrit of 37.2 which is up from prior 05/13/2021. CMP reveals hypokalemia at 3.4 likely reactive, elevated BUN at 23 and creatinine of 1.5 which is around the patient's baseline, hyperglycemia at 140, hypocalcemia at 8.3, mild elevation in AST at 69 which is unchanged from prior with an elevation in alkaline phosphatase at 130 which is also unchanged from prior. Hypoalbuminemia at 3.2 which is improved from prior. Lipase is normal at 189. The radiological images were viewed by myself along with reading the report from the radiologist. CT abdomen pelvis with contrast reveals a small amount of fluid in the gallbladder fossa which is nonspecific. This is probably postoperative seroma of bili Serena. New mild intrahepatic and extrahepatic biliary ductal dilation with no sign of choledocholithiasis consistent with postcholecystectomy status. CT of the pelvis shows no change in large fat-containing left inguinal hernia. On reevaluation, the patient reported symptomatic improvement. At this time I did discuss with him that the pain could be secondary to his reflux disease versus his food choices he had last evening even though his gallbladder is gone. I did discuss symptomatic treatment at home. He was given strict return precautions. The patient was amenable discharge and had no further questions DISPOSITION: The patient was discharged home in stable condition. The patient will follow up with primary care physician in 3 to 5 days CONDITION: Fair PROCEDURES: None FINAL IMPRESSION(S)/DIAGNOSES: 1. Acute abdominal pain Rajiv Carcamo M.D. Upper Abdomen Pain Score (Numeric/FACES): 5 - Related Data Allergies Allergy/AdvReac Type Severity Reaction Status Date / Time No Known Allergies Allergy Verified 06/21/21 04:46 Home Meds: Home Meds Bictegrav/Emtricit/Tenofov Ala [Biktarvy 50-200-25 mg Tablet] 1 tab PO DAILY 05/08/21 [History] Dapsone 100 mg pe PO DAILY 05/08/21 [History] hydroCHLOROthiazide [Hydrochlorothiazide] 1 tab PO DAILY 05/08/21 [History] lisinopriL [Lisinopril] 10 mg PO DAILY 05/08/21 [History] Acetaminophen/oxyCODONE [Percocet 325-5 MG] 2 tab PO Q4H PRN tablet 05/12/21 [Rx] Cyclobenzaprine [Flexeril] 5 mg PO TID PRN tablet 05/12/21 [Rx] Fluconazole [Diflucan] 400 mg PO DAILY@1700 tablet 05/12/21 [Rx] Famotidine 40 mg PO DAILY #30 tablet 06/21/21 [Rx] Past Medical History - Past Health History Medical/Surgical History: Denies Medical/Surgical History HEENT History: Reports: None Cardiovascular History: Reports: Hypertension Respiratory History: Reports: Asthma Gastrointestinal History: Reports: None Genitourinary History: Reports: None Musculoskeletal History: Reports: None Other Neuro History: Meningitis Psychiatric History: Reports: None Endocrine/Metabolic History: Reports: None Hematologic History: Reports: None Immunologic History: Reports: HIV Oncologic (Cancer) History: Reports: None Dermatologic History: Reports: None - Infectious Disease History Infectious Disease History: Reports: Chicken Pox, HIV-Human Immunodeficiency Virus, Meningitis, Mumps, Shingles, TB - Past Surgical History GI Surgical History: Reports: Appendectomy Male Surgical History: Reports: None Social & Family History - Family History Family Medical History: No Pertinent Family History - Tobacco Use Tobacco Use Status *Q: Never Tobacco User - Caffeine Use Caffeine Use: Reports: Coffee, Soda - Recreational Drug Use Recreational Drug Use: No ED ROS GENERAL - Review of Systems Review Of Systems: See Below ED EXAM, GENERAL - Physical Exam Exam: See Below Course - Vital Signs Last Recorded V/S: Last Vital Signs Temp 35.9 C L 06/21/21 07:17 Pulse 64 06/21/21 07:17 Resp 16 06/21/21 07:17 BP 133/80 06/21/21 07:17 Pulse Ox 99 06/21/21 07:17 - Orders/Labs/Meds Labs: Laboratory Tests 06/21/21 06/21/21 Range/Units 05:15 05:15 WBC 3.80 L (4.0-11.0) K/uL RBC 4.06 L (4.50-5.90) M/uL Hgb 12.7 L (13.0-17.0) g/dL Hct 37.2 L (38.0-50.0) % MCV 91.6 (80.0-98.0) fL MCH 31.3 (27.0-32.0) pg MCHC 34.1 (31.0-37.0) g/dL RDW Std Deviation 44.3 (28.0-62.0) fl RDW Coeff of Moi 13 (11.0-15.0) % Plt Count 205 (150-400) K/uL MPV 9.80 (7.40-12.00) fL Neut % (Auto) 52.9 (48.0-80.0) % Lymph % (Auto) 36.8 (16.0-40.0) % [place] % (Auto) 7.9 (0.0-15.0) % Eos % (Auto) 2.1 (0.0-7.0) % Baso % (Auto) 0.3 (0.0-1.5) % Neut # (Auto) 2.0 (1.4-5.7) K/uL Lymph # (Auto) 1.4 (0.6-2.4) K/uL [place] # (Auto) 0.3 (0.0-0.8) K/uL Eos # (Auto) 0.1 (0.0-0.7) K/uL Baso # (Auto) 0.0 (0.0-0.1) K/uL Nucleated RBC % 0.0 /100WBC Nucleated RBCs # 0 K/uL Sodium 138 (136-148) mmol/L Potassium 3.4 L (3.5-5.1) mmol/L Chloride 101 (98-107) mmol/L Carbon Dioxide 27.5 (21.0-32.0) mmol/L BUN 23 H (7.0-18.0) mg/dL Creatinine 1.5 H (0.8-1.3) mg/dL Est Cr Clr Drug Dosing 50.03 mL/min Estimated GFR (MDRD) 47.6 ml/min Glucose 140 H (74-106) mg/dL Calcium 8.3 L (8.5-10.1) mg/dL Total Bilirubin 0.6 (0.2-1.0) mg/dL AST 69 H (15-37) IU/L ALT 53 (14-63) IU/L Alkaline Phosphatase 130 H (46-116) U/L Total Protein 8.0 (6.4-8.2) g/dL Albumin 3.2 L (3.4-5.0) g/dL Globulin 4.8 H (2.6-4.0) g/dL Albumin/Globulin Ratio 0.7 L (0.9-1.6) Lipase 189 (73-393) U/L Meds: Medications Discontinued Medications Generic Name Dose Route Start Last Admin Trade Name Freq PRN Reason Stop Dose Admin Alum [place]/Mag [place]/Simeth XS 0 ml 06/21/21 04:52 06/21/21 05:14 15 ml/ Lidocaine HCl 5 ml PO 06/21/21 04:53 15 each ONETIME ONE Administration Famotidine 20 mg 06/21/21 04:52 06/21/21 05:14 Famotidine 20 Mg Tab PO 06/21/21 04:53 20 mg ONETIME ONE Administration Iopamidol 75 ml 06/21/21 06:21 06/21/21 06:22 Iopamidol 755 Mg/Ml 500 Ml Multipack Bottle IVPUSH 10/30/21 06:22 75 ml ONETIME STA Administration Departure - Departure Time of Disposition: 07:02 Disposition: Home, Self-Care 01 Condition: Fair Clinical Impression: GERD (gastroesophageal reflux disease) - Discharge Information *PRESCRIPTION DRUG MONITORING PROGRAM REVIEWED*: No *COPY OF PRESCRIPTION DRUG MONITORING REPORT IN PATIENT TRUMAN: No Prescriptions: Famotidine 40 mg PO DAILY #30 tablet Instructions: Food Choices for Gastroesophageal Reflux Disease, Adult, Gastroesophageal Reflux Disease, Adult, [id number] Referrals: PCP,Not In Area [Primary Care Provider] - Forms: ED Department Discharge Additional Instructions: You were evaluated today on an emergent basis. At this time after giving you the GI cocktail your symptoms did improve. As discussed this may be due to the food choices that you made last night. I recommend you still decrease the amount of fatty foods that you eat even though your gallbladder is gone. I did also provide you with an antacid. I recommend that you take this daily and follow-up with your primary care physician. If you have any worsening pain, fever or you are concerned please return to the emergency department. [facility] - Primary Care [address] [place] [address] [place] [address] [facility] - General Surgery Professional Building [address] [place] [address], [address] [place] [address] The patient is informed of any results of their evaluation and diagnostic workup and all questions are answered. They are given discharge instructions and return precautions. The patient is stable for discharge. The patient states they understand and agree with the plan and that they will return if their symptoms get worse or if they have any new concerns. The following information is given to patients seen in the emergency department who are being discharged to home. This information is to outline your options for follow-up care. We provide all patients seen in our emergency department with a follow-up referral. The need for follow-up, as well as the timing and circumstances, are variable depending upon the specifics of your emergency department visit. If you don't have a primary care physician on staff, we will provide you with a referral. We always advise you to contact your personal physician following an emergency department visit to inform them of the circumstance of the visit and for follow-up with them and/or the need for any referrals to a consulting specialist. The emergency department will also refer you to a specialist when appropriate. This referral assures that you have the opportunity for follow-up care with a specialist. All of these measure are taken in an effort to provide you with optimal care, which includes your follow-up. Under all circumstances we always encourage you to contact your private physician who remains a resource for coordinating your care. When calling for follow-up care, please make the office aware that this follow-up is from your recent emergency room visit. If for any reason you are refused follow-up, please contact the [facility] Emergency Department at and asked to speak to the emergency department charge nurse.
[2021-06-21 06:43] VITALS: PULSE 64
--- NOTE | 2021-06-21 06:54 | CT ---
INDICATION: Right upper quadrant pain with recent cholecystectomy. COMPARISON: MR of the abdomen from 05/09/[address] of the abdomen from 05/08/2021. TECHNIQUE: CT examination of the abdomen and pelvis was performed with the uneventful intravenous administration of 75 cc of Isovue 370 while 3 mm thick axial sections were obtained from the lung bases through the pubic symphysis. Oral contrast was not administered. Please note that all CT scans at this facility use dose modulation, iterative reconstruction, and/or weight-based dosing when appropriate to reduce radiation dose to as low as reasonably achievable. FINDINGS: In the abdomen, the liver, spleen, pancreas, and adrenals are normal in appearance. The kidneys are normal in appearance. Clips are now seen in the gall bladder fossa from cholecystectomy. There is new mild dilatation of the common bile duct at 9 millimeters and there is new mild intrahepatic biliary ductal dilatation, consistent with post cholecystectomy status. There is a small amount of fluid in the gallbladder fossa, nonspecific. This is probably a mild postoperative seroma, but a biloma or abscess cannot be entirely excluded. The abdominal aorta is normal in caliber with no sign of dilatation. There is no sign of retroperitoneal mass or adenopathy. The stomach, loops of small bowel, and colon in the abdomen are normal in appearance. In the pelvis, the appendix is nonvisualized, but there is no sign of an inflammatory process in the area of the appendix. Again seen are surgical clips in the area of the appendix consistent with appendectomy. The loops of small bowel and colon in the pelvis are normal in appearance. The prostate is normal in appearance. The urinary bladder is normal in appearance. There is no sign of pelvic or inguinal mass or adenopathy. There is no change in a large left inguinal hernia containing fat. There is no sign of free air or free fluid in the abdomen or pelvis. The lung bases are clear. There is no change in minimal scoliosis of the lumbar spine convex towards the right. There is no change in moderate L2-3 and L5-S1 disc degenerative disease with mild L3-4 and L4-5 disc degenerative disease. IMPRESSION: CT of the abdomen shows a small amount of fluid in the gallbladder fossa, nonspecific. Mild this is probably a postoperative seroma, a biloma or abscess cannot be excluded. New mild intrahepatic and extrahepatic biliary ductal dilatation with no sign of choledocholithiasis, consistent with post cholecystectomy status. CT of the pelvis shows no change in a large fat containing left inguinal hernia. Please note that all CT scans at this facility use dose modulation, iterative reconstruction, and/or weight-based dosing when appropriate to reduce radiation dose to as low as reasonably achievable. Dictated by Coleman Wright MD @ 06/21/2021 6:54:00 AM (Electronically Signed)
[2021-06-21 07:18] VITALS: BP 133/80
== END 2021-06-21 07:20 | disposition home or self-care (01) ==
LOC: MW.ED 04:28
DX: K21.9 Gastro-esophageal reflux disease without esophagitis (principal); I10 Essential (primary) hypertension; Z79.899 Other long term (current) drug therapy
CPT/HCPCS: 36415; 74177; 80053; 83690; 85025; 99284; A9270; Q9967

== ENCOUNTER 2022-09-17 09:30 | Day surgery (SDC) | payer MEDICAID ==
[~2022-09-17 09:30] MED LIST: Lactated Ringers 1,000 ML IV SCH; Sodium Chloride 0.9% 10 ML Syringe FLUSH PRN; Sodium Chloride 0.9% 2.5 ML Syringe FLUSH PRN; Sodium Chloride 0.9% 20 ML SDV IV PRN; cefOXitin 2 GM in Premix Bag 1 BAG IV ONE
[2022-09-17] MEDS ORDERED: Lidocaine 2% 5 ML SDV ONE (10:28)
[2022-09-17] MEDS ORDERED: Propofol 200 MG/20 ML SDV ONE (10:28)
[2022-09-17 14:24] VITALS: BP 105/58; PULSE 73
== END 2022-09-17 11:34 | disposition home or self-care (01) ==
LOC: MW.SDS 09:30
PROVIDERS: ATTEND Surgery
DX: Z12.11 Encounter for screening for malignant neoplasm of colon (principal); I10 Essential (primary) hypertension; Z86.010 Personal history of colon polyps; Z79.899 Other long term (current) drug therapy; Z98.890 Other specified postprocedural states; Z87.891 Personal history of nicotine dependence
CPT/HCPCS: 45378; J0694; J2704; J7120; 00812; J3490

== ENCOUNTER 2023-06-27 16:09 | Emergency (ER) | payer MEDICAID ==
[2023-06-27 16:45] VITALS: BP 156/105
[2023-06-27 17:00] LABS: APPEARANCE,URINE SLT CLOUDY; BILIRUBIN,URINE NEGATIVE (NEGATIVE); COLOR,URINE ORANGE; GLUCOSE,URINE NEGATIVE (NEGATIVE); KETONES,URINE NEGATIVE (NEGATIVE); LEUKOCYTE ESTERASE,URINE LARGE (NEGATIVE); NITRITE,URINE POSITIVE (NEGATIVE); OCCULT BLOOD,URINE LARGE (NEGATIVE); PROTEIN,URINE 100 mg/dL (NEGATIVE); UROBILINOGEN,URINE 0.2 EU/dL (<2.0)
[2023-06-27 17:06] LABS: BACTERIA,URINE FEW (NEGATIVE); EPITHELIAL CELLS,URINE FEW (NONE-FEW); RBC,URINE 50-60 (0-2/HPF); WBC,URINE 20-30 (0-5/HPF)
[2023-06-27 17:39] VITALS: PULSE 85
== END 2023-06-27 17:38 | disposition home or self-care (01) ==
LOC: MW.ED 16:09
DX: N39.0 Urinary tract infection, site not specified (principal); I10 Essential (primary) hypertension; B20 Human immunodeficiency virus [HIV] disease; Z79.899 Other long term (current) drug therapy
CPT/HCPCS: 51798; 81001; 87086; 99283